=== PATIENT | male | born 1930 | race Caucasian/White ===

== ENCOUNTER 2018-08-03 23:00 | Inpatient (IN) | payer OTHER ==
[~2018-08-03] VITALS: Ht 177.8 cm; Wt 102.1 kg
[2018-08-04 00:26] VITALS: BP 129/62
[2018-08-04] MEDS ORDERED: DONE10TA14 PO (03:10)
[2018-08-04] MEDS ORDERED: METF10007 PO (03:10)
[2018-08-04] MEDS ORDERED: LOTE5DRO2 LEFTEYE (03:10)
[2018-08-04] MEDS ORDERED: SIMV20TA3 PO (03:10)
[2018-08-04] MEDS ORDERED: METO25TA4 PO (03:10)
[2018-08-04] MEDS ORDERED: CITA10TA4 PO (03:10)
[2018-08-04] MEDS ORDERED: ISOS30TA4 PO (03:10)
[2018-08-04] MEDS ORDERED: DORZ10DR26 EACHEYE (03:10)
[2018-08-04] MEDS ORDERED: LEVO175T5 PO (03:10)
[2018-08-04] MEDS ORDERED: NYST15CR TP (03:10)
[2018-08-04] MEDS ORDERED: CHOL100013 PO (03:10)
[2018-08-04] MEDS ORDERED: ASPI81TA50 PO (03:10)
[2018-08-04] MEDS ORDERED: TRAZ-120 PO (03:10)
[2018-08-04] MEDS ORDERED: ACET325T9 PO (03:10)
[2018-08-04] MEDS ORDERED: MAG HYDROX/AL HYDROX/SIMETH 30 ML ORAL.SUSP PO PRN (03:15)
[2018-08-04] MEDS ORDERED: METHYL SALICYLATE/MENTHOL TOPICAL OINTMENT 29GM TUBE. TP PRN (03:15)
[2018-08-04] MEDS ORDERED: MAGNESIUM HYDROXIDE 2,400 MG/30 ML ORAL.SUSP. PO PRN (03:15)
[2018-08-04] MEDS ORDERED: ACETAMINOPHEN 325 MG TABLET PO PRN (03:15)
[2018-08-04] MEDS ORDERED: ACETAMINOPHEN 500 MG TABLET PO PRN (03:15)
[2018-08-04 05:54] LABS: CLARITY,URINE CLEAR; COLOR,URINE YELLOW
[2018-08-04 05:55] LABS: BACTERIA,URINE 0 /HPF (0-FEW); BILIRUBIN,URINE NEG (NEG); GLUCOSE,URINE NEG (NEG); NITRITE,URINE NEG (NEG); RBC,URINE 0 /HPF (0-2); UROBILINOGEN,URINE 0.2 mg/dL (0.2 mg/dL); WBC,URINE RARE /HPF (0-4)
[2018-08-04] MEDS: LEVOTHYROXINE 175 MCG TABLET PO SCH (05:57)
[2018-08-04 06:05] VITALS: BP 143/79
[2018-08-04 07:04] LABS: BASO # 0.1 x10^3/uL (0.0-0.2); BASO % 1 % (0-3); EOS # 0.4 x10^3/uL (0.0-0.7); EOS % 5 % (0-3); HEMOGLOBIN 11.2 g/dL (13.0-17.5); LYMPH # 1.4 x10^3/uL (1.0-4.8); LYMPH % 20 % (24-48); MEAN CORPUSCULAR HEMOGLOBIN 30 pg (25-35); MEAN CORPUSCULAR HGB CONC 33 g/dL (31-37); MEAN CORPUSCULAR VOLUME 92 fL (79-100); MONO # 0.6 x10^3/uL (0.0-1.1); MONO % 9 % (0-9); NEUT # 4.6 x10^3uL (1.8-7.7); NEUT % 66 % (31-73); PLATELET COUNT 172 x10^3/uL (140-400); RED BLOOD COUNT 3.69 x10^6/uL (4.30-5.70); RED CELL DISTRIBUTION WIDTH 15.1 % (11.5-14.5)
[2018-08-04 07:20] LABS: ALBUMIN 3.8 g/dL (3.4-5.0); ALBUMIN/GLOBULIN RATIO 1.2 (1.0-1.7); CREATININE 0.8 mg/dL (0.7-1.3); MAGNESIUM 1.6 mg/dL (1.8-2.4); POTASSIUM 3.8 mmol/L (3.5-5.1); TOTAL BILIRUBIN 0.4 mg/dL (0.2-1.0); TOTAL PROTEIN 7.1 g/dL (6.4-8.2)
[2018-08-04] MEDS: metFORMIN 500 MG TABLET PO SCH ×2 (08:18→17:00)
[2018-08-04] MEDS: METOPROLOL TART IMMED RELEASE 25 MG TABLET PO SCH ×2 (08:18→19:41)
[2018-08-04] MEDS: DONEPEZIL HCL 10 MG TABLET PO SCH (08:18)
[2018-08-04] MEDS: ASPIRIN ENTERIC COATED 81 MG TABLET.DR. PO SCH (08:18)
[2018-08-04] MEDS: CITALOPRAM 10 MG TABLET. PO SCH (08:18)
[2018-08-04] MEDS: ISOSORBIDE MONONITRATE ER 30 MG TAB.ER.24H PO SCH (08:18)
[2018-08-04] MEDS: CHOLECALCIFEROL (VITAMIN D3) 1,000 UNIT TABLET PO SCH (08:18)
[2018-08-04] MEDS: NON FORMULARY ITEM (Loteprednol Etabonate (Lotemax) 1 DROP) LEFTEYE SCH ×2 (08:19→14:00)
[2018-08-04] MEDS: DORZOLAMIDE 2% OPHTH SOLUTION 10ML BOTTLE. OU SCH ×2 (08:19→19:45)
[2018-08-04] MEDS ORDERED: NYSTATIN 100,000 UNIT/GM TOPICAL CREAM 15GM TUBE. TP PRN (09:00)
[2018-08-04 14:08] LABS: THYROID STIM HORMONE (TSH) 21.45 uIU/mL (0.358-3.740)
[2018-08-04 16:16] VITALS: BP 149/72
[2018-08-04] MEDS: SIMVASTATIN 20 MG TABLET PO SCH (19:45)
[2018-08-04] MEDS: prednisoLONE ACETATE 1% OPHTH SUSPENSION 5ML BOTTLE. OS SCH (19:45)
[2018-08-04 21:11] LABS: THYROXINE 5.7 ug/dL (4.5-12.0)
--- NOTE | 2018-08-04 22:31 | PDOC ---
Exam Note: Sid Note: Please also refer to the separate dictated note~for this date of service dictated separately.~Patient seen individually. Discussed the patient with Nursing staff reviewed the chart.~Reviewed interim history and current functioning. Reviewed vital signs,~Labs/ Radiology~and current medications noted below. Continue current treatment with the changes noted in the dictated addendum note Assessment: Vital Signs: Vital Signs Date Time Temp Pulse Resp B/P (MAP) Pulse Ox O2 Delivery O2 Flow Rate FiO2 08/04/18 19:41 102 149/72 08/04/18 16:16 97.2 20 98 Room Air Labs: Laboratory Tests Test 08/04/18 05:00 08/04/18 06:38 08/04/18 07:19 08/04/18 12:15 Urine Collection Type Void Urine Color Yellow Urine Clarity Clear Urine pH 5.5 Urine Specific [place] 1.010 Urine Protein Neg (NEG-TRACE) Urine Glucose (UA) Neg mg/dL (NEG) Urine Ketones (Stick) Neg mg/dL (NEG) Urine Blood Trace (NEG) Urine Nitrite Neg (NEG) Urine Bilirubin Neg (NEG) Urine Urobilinogen Dipstick 0.2 mg/dL (0.2 mg/dL) Urine Leukocyte Esterase Neg (NEG) Urine RBC 0 /HPF (0-2) Urine WBC Rare /HPF (0-4) Urine Squamous Epithelial Cells None /LPF Urine Bacteria 0 /HPF (0-FEW) White Blood Count 7.0 x10^3/uL (4.0-11.0) Red Blood Count 3.69 x10^6/uL (4.30-5.70) L Hemoglobin 11.2 g/dL (13.0-17.5) L Hematocrit 34.0 % (39.0-53.0) L Mean Corpuscular Volume 92 fL (79-100) Mean Corpuscular Hemoglobin 30 pg (25-35) Mean Corpuscular Hemoglobin Concent 33 g/dL (31-37) Red Cell Distribution Width 15.1 % (11.5-14.5) H Platelet Count 172 x10^3/uL (140-400) Neutrophils (%) (Auto) 66 % (31-73) Lymphocytes (%) (Auto) 20 % (24-48) L Monocytes (%) (Auto) 9 % (0-9) Eosinophils (%) (Auto) 5 % (0-3) H Basophils (%) (Auto) 1 % (0-3) Neutrophils # (Auto) 4.6 x10^3uL (1.8-7.7) Lymphocytes # (Auto) 1.4 x10^3/uL (1.0-4.8) Monocytes # (Auto) 0.6 x10^3/uL (0.0-1.1) Eosinophils # (Auto) 0.4 x10^3/uL (0.0-0.7) Basophils # (Auto) 0.1 x10^3/uL (0.0-0.2) Sodium Level 140 mmol/L (136-145) Potassium Level 3.8 mmol/L (3.5-5.1) Chloride Level 104 mmol/L (98-107) Carbon Dioxide Level 26 mmol/L (21-32) Anion Gap 10 (6-14) Blood Urea Nitrogen 18 mg/dL (8-26) Creatinine 0.8 mg/dL (0.7-1.3) Estimated GFR (Cockcroft-Gault) 91.0 BUN/Creatinine Ratio 23 (6-20) H Glucose Level 150 mg/dL (70-99) H Calcium Level 9.0 mg/dL (8.5-10.1) Magnesium Level 1.6 mg/dL (1.8-2.4) L Total Bilirubin 0.4 mg/dL (0.2-1.0) Aspartate Amino Transferase (AST) 19 U/L (15-37) Alanine Aminotransferase (ALT) 24 U/L (16-63) Alkaline Phosphatase 67 U/L (46-116) Total Protein 7.1 g/dL (6.4-8.2) Albumin 3.8 g/dL (3.4-5.0) Albumin/Globulin Ratio 1.2 (1.0-1.7) Triglycerides Level 176 mg/dL (0-150) H Cholesterol Level 141 mg/dL (0-200) LDL Cholesterol, Calculated 64 mg/dL (0-100) VLDL Cholesterol, Calculated 35 mg/dL (0-40) Non-HDL Cholesterol Calculated 99 mg/dL (0-129) HDL Cholesterol 42 mg/dL (40-60) Cholesterol/HDL Ratio 3.0 Thyroid Stimulating Hormone (TSH) 21.450 uIU/mL (0.358-3.740) Thyroxine (T4) 5.7 ug/dL (4.5-12.0) Total Triiodothyronine (TT3) 70 ng/dL (71-180) L Treponema pallidum Antibody Nonreactive (Nonreactive) Glucose (Fingerstick) 169 mg/dL (70-99) H 116 mg/dL (70-99) H Test 08/04/18 19:16 Glucose (Fingerstick) 167 mg/dL (70-99) H Current Medications: Meds: Current Medications Acetaminophen (Tylenol) 500 mg PRN Q8HRS PRN PO PAIN / TEMP; Start 08/04/18 at 03:15 Citalopram Hydrobromide (CeleXA) 10 mg DAILY PO Last administered on 08/04/18 08:18; Start 08/04/18 at 09:00 Isosorbide Mononitrate (Imdur) 30 mg DAILY PO Last administered on 08/04/18 08:18; Start 08/04/18 at 09:00 Levothyroxine Sodium (Synthroid) 175 mcg DAILY06 PO Last administered on 08/04/18 05:57; Start 08/04/18 at 06:00 Metoprolol Tartrate (Lopressor) 25 mg BID PO Last administered on 08/04/18 19:41; Start 08/04/18 at 09:00 Aspirin (Aspirin Enteric Coated) 81 mg DAILYWBKFT PO Last administered on 08/04/18 08:18; Start 08/04/18 at 08:00 Vitamin D (Vitamin D3) 2,000 unit DAILY PO Last administered on 08/04/18 08:18; Start 08/04/18 at 09:00 Donepezil HCl (Aricept) 10 mg DAILY PO Last administered on 08/04/18 08:18; Start 08/04/18 at 09:00 Dorzolamide HCl (Trusopt) 1 drop BID OU Last administered on 08/04/18 19:45; Start 08/04/18 at 09:00 Non-Formulary Medication (Loteprednol Etabonate (Lotemax)) 1 drop TID LEFTEYE ; Start 08/04/18 at 09:00; Stop 08/04/18 at 16:36; Status DC Metformin HCl (Glucophage) 1,000 mg BIDWMEALS PO Last administered on 08/04/18at 17:00; Start 08/04/18 at 08:00 Nystatin (Mycostatin) 1 hansel PRN BID PRN TP FUNGAL RASH; Start 08/04/18 at 09:00 Simvastatin (Zocor) 20 mg HS PO Last administered on 08/04/18at 19:45; Start 08/04/18 at 21:00 Trazodone HCl (Desyrel) 12.5 mg PRN TID PRN PO SLEEP OR MOOD; Start 08/04/18 at 03:30 Acetaminophen (Tylenol) 650 mg PRN Q6HRS PRN PO PAIN / TEMP; Start 08/04/18 at 03:15; Status UNV Multi-Ingredient Ointment (Analgesic [place]) 1 hansel PRN QID PRN TP MUSCLE PAIN; Start 08/04/18 at 03:15 Al Hydroxide/Mg Hydroxide (Mylanta Plus Xs) 15 ml PRN AFTMEALHC PRN PO DYSPEPSIA; Start 08/04/18 at 03:15 Magnesium Hydroxide (Milk Of Magnesia) 2,400 mg PRN QHS PRN PO CONSTIPATION; Start 08/04/18 at 03:15 Prednisolone Acetate (Pred Forte) 1 drop BID OS Last administered on 08/04/18at 19:45; Start 08/04/18 at 21:00 Olanzapine (ZyPREXA ZYDIS) 2.5 mg PRN Q2HR PRN PO PSYCHOSIS Last administered on 08/04/18at 17:44; Start 08/04/18 at 17:30 Active Scripts Active Reported Nystatin 15 Gm Cream..g. 15 Gm TP PRN BID PRN Trazodone Hcl 50 Mg Tablet 12.5 Mg PO [place] AT 123416 PRN Aspir-Low (Aspirin) 81 Mg Tablet.dr 1 Tab PO DAILY Tylenol (Acetaminophen) 325 Mg Tablet 500 Mg PO PRN Q8HRS PRN Dorzolamide Hcl 10 Ml Drops 1 Drop EACHEYE BID Donepezil Hcl 10 Mg Tab.rapdis 10 Mg PO DAILY Metoprolol Tartrate 25 Mg Tablet 25 Mg PO BID Simvastatin 20 Mg Tablet 20 Mg PO HS Metformin Hcl 1,000 Mg Tablet 1,000 Mg PO BID Lotemax (Loteprednol Etabonate) 5 Ml Drops.susp 1 Drop LEFTEYE TID Levothyroxine Sodium 175 Mcg Tablet 175 Mcg PO DAILYAC Isosorbide Mononitrate Er (Isosorbide Mononitrate) 30 Mg Tab.er.24h 30 Mg PO DAILY Citalopram Hbr (Citalopram Hydrobromide) 10 Mg Tablet 10 Mg PO DAILY Vitamin D (Cholecalciferol (Vitamin D3)) 1,000 Unit Capsule 2 Cap PO DAILY I have reviewed the current psychotropics carefully including drug interactions. Risk benefit ratio favors no change other than as noted in my dictated progress note. 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
--- NOTE | 2018-08-04 23:46 | HP ---
ADMIT DATE: 08/03/2018 PSYCHIATRIC ADMISSION HISTORY/EVALUATION IDENTIFYING DATA: The patient is an 88-year-old male referred to us from [facility] by Dr. Daily Khanna, his primary care physician after he threatened to kill residents at the facility. He was cursing, disruptive, using a walker to hit others, labile in his mood, extremely confused, psychotic name calling. He is getting in other residents personal space. Behaviors were deemed dangerous, unmanageable, out of control, had failed outpatient psychiatric interventions resulting in this referral. CHIEF COMPLAINT: "I came here 2 weeks ago. I was here before then 8 years ago." I met with the patient at length in his room, discussed with nursing staff, reviewed the chart. Previously discussed with Mary Duarte, major donor coordinator. HISTORY OF PRESENT ILLNESS: The patient has a long history of dementia, Alzheimer's vascular type. He has been residing at the [facility] for some time, but more recently getting paranoid, agitated, anxious, irritable with sleep and appetite changes. He has been quite delusional and aggressive as above. Behaviors deemed dangerous. No clear history of bipolar disorder, suicidal or homicidal ideation. PAST PSYCHIATRIC HISTORY: As above. MEDICAL HISTORY: Abdominal aortic aneurysm, history of hypertension, hyperlipidemia, hypothyroidism, type 2 diabetes mellitus, glaucoma. Accu-Cheks before meals and at bedtime. ALLERGIES: PENICILLIN. CODE STATUS: DNR. DIET: Regular. MEDICATIONS: Takes it whole. Ambulates with walker. On 08/03/2018, UA was negative. CURRENT PSYCHOTROPICS: Celexa 10 mg a day, Aricept 10 mg b.i.d. FAMILY HISTORY: Noncontributory. SOCIAL HISTORY: No history of alcohol, drug abuse, physical, sexual or elder abuse history is noted. He is not known to be a perpetrator. REACTION TO HOSPITALIZATION: The patient oblivious of it. ASSETS: Supportive living at the [facility], supportive family. MENTAL STATUS EXAM: Oriented to himself. Insight, judgment, recent and remote memory, attention, concentration, fund of knowledge poor, consistent with his diagnosis. He is paranoid, delusional, somewhat impulsive. IMPRESSION: Major neurocognitive disorder, Alzheimer, vascular with delusion, depression, behavioral disturbance; anxiety disorder, unspecified; impulse control disorder, unspecified. Rest as above. PLAN: Admit to Geropsychiatry Unit at [facility]. I will see the patient daily individually from a psychiatric standpoint. Medical followup with Dr. Mayo. Continue the patient on his current psychotropics. Consider changing Celexa to Zoloft and adding Seroquel if psychotic symptoms are evident and if his aggression is prominent, may consider low dose Depakote Sprinkles. ESTIMATED LENGTH OF STAY: 10-12 days. DISPOSITION: Plans back to longterm. MAN Shelbie POLO MD DR: CARL/efra JOB#: [id number] / [id number]
[2018-08-05] MEDS: LEVOTHYROXINE 175 MCG TABLET PO SCH (06:35)
[2018-08-05 06:52] VITALS: BP 97/62
--- NOTE | 2018-08-05 07:20 | CONS ---
DATE OF CONSULTATION: 08/04/2018 ATTENDING PHYSICIAN: Singh Levy MD. CHIEF COMPLAINT: We are asked to see this patient for medical consultation while he is admitted to the Behavioral Health Unit. HISTORY OF PRESENT ILLNESS: The patient is an 88-year-old gentleman recently transferred here for anger issues, impulse control disorder with underlying dementia. He had threatened to kill residents, cursing was destructive, using his walker to hit others, labile emotional status. The patient unfortunately suffers from underlying depression. Much of the history is obtained from his old charts. He currently lives in [facility], which is a very [facility] in [place], [place]. PAST MEDICAL HISTORY: Dementia, abdominal aortic aneurysm, hypertension, hyperlipidemia, type 2 diabetes, hypothyroidism, and glaucoma. He recently had a fall resulting in a left patellar fracture. He is able to ambulate with the help of a walker. CURRENT MEDICATIONS: Reviewed. He is on scheduled Tylenol, Mylanta, aspirin, Celexa daily, Aricept, Trusopt eyedrops, Imdur, Synthroid, milk of magnesia, Glucophage orally, Lopressor, nystatin, Zocor, trazodone, and vitamin D. SOCIAL HISTORY: He is a nonsmoker, nondrinker. He knows that he is in a facility. He previously had served in the [employer]. He could not go into further details regarding his work history. FAMILY HISTORY: Unknown at this time and unobtainable. REVIEW OF SYSTEMS: Unobtainable due to the patient's current condition. PHYSICAL EXAMINATION: GENERAL: When I saw him, this is a pleasant elderly gentleman who was in no acute distress. VITAL SIGNS: His initial vital signs today showed a blood pressure of 129/62, pulse is 84 and regular. He was afebrile, heart rate is adequate, oxygen saturation 97% on room air. HEENT: The head is without trauma. Pupils are otherwise reactive. Sclerae nonicteric. The oropharynx is clear. NECK: Supple. No bruits are identified. LUNGS: Otherwise clear to auscultation. CARDIOVASCULAR: Showed regular heart tones. Normal S1, S2. He has a noticeable grade 3/6 systolic ejection murmur, early systolic best heard at the left sternal border. The murmur does not radiate into the carotids. Peripheral pulses are palpable and full. ABDOMEN: Obese, protuberant. No organomegaly. Bowel sounds are hypoactive. EXTREMITIES: Showed no cyanosis or edema. He has degenerative changes of both knees. NEUROLOGIC: Focally intact. Speech is fluent. MUSCULOSKELETAL: He moves all extremities. MENTAL CAPACITY: He is very agitated and forgetful. LABORATORY DATA: Hemoglobin is 11.2 g/dL with white count of 7000. Chemistry panel showed a stable creatinine of 0.8 mg percent, nonfasting blood sugar 150 and electrolytes within range. ASSESSMENT: 1. This 88 DICTATION ENDS HERE DAMARIS GARG MD DR: EMMA/efra JOB#: [id number] / [id number] MORENITA Cheng MD
[2018-08-05] MEDS: CITALOPRAM 10 MG TABLET. PO SCH (08:39)
[2018-08-05] MEDS: CHOLECALCIFEROL (VITAMIN D3) 1,000 UNIT TABLET PO SCH (08:39)
[2018-08-05] MEDS: ASPIRIN ENTERIC COATED 81 MG TABLET.DR. PO SCH (08:39)
[2018-08-05] MEDS: DONEPEZIL HCL 10 MG TABLET PO SCH (08:39)
[2018-08-05] MEDS: ISOSORBIDE MONONITRATE ER 30 MG TAB.ER.24H PO SCH (08:40)
[2018-08-05] MEDS: metFORMIN 500 MG TABLET PO SCH ×2 (08:40→17:00)
[2018-08-05] MEDS: METOPROLOL TART IMMED RELEASE 25 MG TABLET PO SCH (08:40)
[2018-08-05] MEDS: DORZOLAMIDE 2% OPHTH SOLUTION 10ML BOTTLE. OU SCH ×2 (08:42→20:52)
[2018-08-05] MEDS: prednisoLONE ACETATE 1% OPHTH SUSPENSION 5ML BOTTLE. OS SCH ×2 (08:42→20:52)
[2018-08-05] MEDS ORDERED: IV NORMAL SALINE 1,000ML 1,000 ML IV ONE (11:15)
[2018-08-05 12:08] LABS: HEMOGLOBIN A1C 7.3 % (4.8-5.6)
[2018-08-05 16:40] VITALS: BP 124/71
--- NOTE | 2018-08-05 20:47 | PDOC ---
Exam Note: Sid Note: Please also refer to the separate dictated note~for this date of service dictated separately.~Patient seen individually. Discussed the patient with Nursing staff reviewed the chart.~Reviewed interim history and current functioning. Reviewed vital signs,~Labs/ Radiology~and current medications noted below. Continue current treatment with the changes noted in the dictated addendum note Assessment: Vital Signs: Vital Signs Date Time Temp Pulse Resp B/P (MAP) Pulse Ox O2 Delivery O2 Flow Rate FiO2 08/05/18 16:40 97.8 67 17 124/71 (88) 96 Room Air I&O Intake and Output 08/05/18 07:00 Intake Total 720 ml Balance 720 ml Intake Oral 720 ml # Bowel Movements 1 Labs: Laboratory Tests Test 08/05/18 07:20 08/05/18 10:51 08/05/18 12:16 08/05/18 17:02 Glucose (Fingerstick) 150 mg/dL (70-99) H 182 mg/dL (70-99) H 138 mg/dL (70-99) H 125 mg/dL (70-99) H Test 08/05/18 19:20 Glucose (Fingerstick) 161 mg/dL (70-99) H Current Medications: Meds: Current Medications Acetaminophen (Tylenol) 500 mg PRN Q8HRS PRN PO PAIN / TEMP; Start 08/04/18 at 03:15 Citalopram Hydrobromide (CeleXA) 10 mg DAILY PO Last administered on 08/05/18at 08:39; Start 08/04/18 at 09:00; Stop 08/05/18 at 19:49; Status DC Isosorbide Mononitrate (Imdur) 30 mg DAILY PO Last administered on 08/04/18at 08:18; Start 08/04/18 at 09:00; Stop 08/05/18 at 11:17; Status DC Levothyroxine Sodium (Synthroid) 175 mcg DAILY06 PO Last administered on 08/05/18at 06:35; Start 08/04/18 at 06:00 Metoprolol Tartrate (Lopressor) 25 mg BID PO Last administered on 08/04/18at 19:41; Start 08/04/18 at 09:00; Stop 08/05/18 at 11:17; Status DC Aspirin (Aspirin Enteric Coated) 81 mg DAILYWBKFT PO Last administered on 08/05/18 08:39; Start 08/04/18 at 08:00 Vitamin D (Vitamin D3) 2,000 unit DAILY PO Last administered on 08/05/18 08:39; Start 08/04/18 at 09:00 Donepezil HCl (Aricept) 10 mg DAILY PO Last administered on 08/05/18 08:39; Start 08/04/18 at 09:00 Dorzolamide HCl (Trusopt) 1 drop BID OU Last administered on 08/05/18 08:42; Start 08/04/18 at 09:00 Non-Formulary Medication (Loteprednol Etabonate (Lotemax)) 1 drop TID LEFTEYE ; Start 08/04/18 at 09:00; Stop 08/04/18 at 16:36; Status DC Metformin HCl (Glucophage) 1,000 mg BIDWMEALS PO Last administered on 08/05/18at 17:00; Start 08/04/18 at 08:00 Nystatin (Mycostatin) 1 hansel PRN BID PRN TP FUNGAL RASH; Start 08/04/18 at 09:00 Simvastatin (Zocor) 20 mg HS PO Last administered on 08/04/18at 19:45; Start 08/04/18 at 21:00 Trazodone HCl (Desyrel) 12.5 mg PRN TID PRN PO SLEEP OR MOOD; Start 08/04/18 at 03:30 Acetaminophen (Tylenol) 650 mg PRN Q6HRS PRN PO PAIN / TEMP; Start 08/04/18 at 03:15; Status UNV Multi-Ingredient Ointment (Analgesic [place]) 1 hansel PRN QID PRN TP MUSCLE PAIN; Start 08/04/18 at 03:15 Al Hydroxide/Mg Hydroxide (Mylanta Plus Xs) 15 ml PRN AFTMEALHC PRN PO DYSPEPSIA; Start 08/04/18 at 03:15 Magnesium Hydroxide (Milk Of Magnesia) 2,400 mg PRN QHS PRN PO CONSTIPATION; Start 08/04/18 at 03:15 Prednisolone Acetate (Pred Forte) 1 drop BID OS Last administered on 08/05/18 08:42; Start 08/04/18 at 21:00 Olanzapine (ZyPREXA ZYDIS) 2.5 mg PRN Q2HR PRN PO PSYCHOSIS Last administered on 08/05/18at 08:42; Start 08/04/18 at 17:30 Sodium Chloride 1,000 ml @ 1,000 mls/hr 1X ONCE IV Last administered on 08/05/18at 11:15; Start 08/05/18 at 11:15; Stop 08/05/18 at 12:14; Status DC Sertraline HCl (Zoloft) 25 mg DAILY PO ; Start 08/06/18 at 09:00 Active Scripts Active Reported Nystatin 15 Gm Cream..g. 15 Gm TP PRN BID PRN Trazodone Hcl 50 Mg Tablet 12.5 Mg PO PRN [place] AT 814310 PRN Aspir-Low (Aspirin) 81 Mg Tablet.dr 1 Tab PO DAILY Tylenol (Acetaminophen) 325 Mg Tablet 500 Mg PO PRN Q8HRS PRN Dorzolamide Hcl 10 Ml Drops 1 Drop EACHEYE BID Donepezil Hcl 10 Mg Tab.rapdis 10 Mg PO DAILY Metoprolol Tartrate 25 Mg Tablet 25 Mg PO BID Simvastatin 20 Mg Tablet 20 Mg PO HS Metformin Hcl 1,000 Mg Tablet 1,000 Mg PO BID Lotemax (Loteprednol Etabonate) 5 Ml Drops.susp 1 Drop LEFTEYE TID Levothyroxine Sodium 175 Mcg Tablet 175 Mcg PO DAILYAC Isosorbide Mononitrate Er (Isosorbide Mononitrate) 30 Mg Tab.er.24h 30 Mg PO DAILY Citalopram Hbr (Citalopram Hydrobromide) 10 Mg Tablet 10 Mg PO DAILY Vitamin D (Cholecalciferol (Vitamin D3)) 1,000 Unit Capsule 2 Cap PO DAILY I have reviewed the current psychotropics carefully including drug interactions. Risk benefit ratio favors no change other than as noted in my dictated progress note. Diagnosis: Problems: (1) Anxiety disorder (2) Dementia, vascular, with depression (3) Dementia, vascular, with delusions (4) Dementia in Alzheimer's disease with depression (5) Dementia in Alzheimer's disease with delusions (6) Impulse control disorder SON POLO MD Aug 05, 2018 20:47
[2018-08-05] MEDS: SIMVASTATIN 20 MG TABLET PO SCH (20:52)
[2018-08-06] MEDS: LEVOTHYROXINE 175 MCG TABLET PO SCH (05:41)
[2018-08-06 06:09] VITALS: BP 136/69
[2018-08-06] MEDS: DONEPEZIL HCL 10 MG TABLET PO SCH (08:13)
[2018-08-06] MEDS: ASPIRIN ENTERIC COATED 81 MG TABLET.DR. PO SCH (08:13)
[2018-08-06] MEDS: CHOLECALCIFEROL (VITAMIN D3) 1,000 UNIT TABLET PO SCH (08:17)
[2018-08-06] MEDS: metFORMIN 500 MG TABLET PO SCH ×2 (08:19→17:14)
[2018-08-06] MEDS: DORZOLAMIDE 2% OPHTH SOLUTION 10ML BOTTLE. OU SCH ×2 (08:20→20:04)
[2018-08-06] MEDS: prednisoLONE ACETATE 1% OPHTH SUSPENSION 5ML BOTTLE. OS SCH ×2 (08:20→20:04)
[2018-08-06] MEDS: SERTRALINE 25 MG TABLET. PO SCH (10:47)
--- NOTE | 2018-08-06 13:00 | PN ---
DATE: 08/05/2018 PSYCHIATRIC PROGRESS NOTE This late entry of 08/05/2018 covers elements not covered in my initial note. SUBJECTIVE: I met with the patient in the evening. The patient slept 8 hours previous night, remains confused, was agitated in the morning, received Zyprexa p.r.n. Blood pressure was somewhat low, then was on IV fluids 1 liter, blood pressure is stable by the time I met with him. We will defer to Dr. Herrera/Dr. Mayo. REVIEW OF SYSTEMS: Ambulation impaired, in wheelchair, but he uses walker at times. No CV, , pulmonary, eye, ENT system symptoms on review. Reliability poor. MENTAL STATUS EXAM: Oriented to himself. Insight, judgment, recent and remote memory, attention, concentration, fund of knowledge poor, consistent with his diagnosis mentioned in my initial note. PLAN: Celexa will be changed to Zoloft 25 mg a day. Maintain Aricept along with Zyprexa p.r.n. Rest unchanged. SON POLO MD DR: CARL/efra JOB#: [id number] / [id number]
[2018-08-06 15:53] VITALS: BP 141/99
[2018-08-06] MEDS: SIMVASTATIN 20 MG TABLET PO SCH (20:02)
[2018-08-06] MEDS: traZODone 50 MG TABLET. PO PRN (20:33)
--- NOTE | 2018-08-06 22:49 | PDOC ---
Exam Note: Sid Note: Please also refer to the separate dictated note~for this date of service dictated separately.~Patient seen individually. Discussed the patient with Nursing staff reviewed the chart.~Reviewed interim history and current functioning. Reviewed vital signs,~Labs/ Radiology~and current medications noted below. Continue current treatment with the changes noted in the dictated addendum note Assessment: Vital Signs: Vital Signs Date Time Temp Pulse Resp B/P (MAP) Pulse Ox O2 Delivery O2 Flow Rate FiO2 08/06/18 15:53 97.6 76 16 141/99 (113) 98 08/05/18 16:40 Room Air I&O Intake and Output 08/06/18 06:59 Intake Total 840 ml Balance 840 ml Intake Oral 840 ml Labs: Laboratory Tests Test 08/06/18 07:09 08/06/18 11:08 08/06/18 16:12 08/06/18 19:22 Glucose (Fingerstick) 156 mg/dL (70-99) H 184 mg/dL (70-99) H 120 mg/dL (70-99) H 156 mg/dL (70-99) H Current Medications: Meds: Current Medications Acetaminophen (Tylenol) 500 mg PRN Q8HRS PRN PO PAIN / TEMP; Start 08/04/18 at 03:15 Citalopram Hydrobromide (CeleXA) 10 mg DAILY PO Last administered on 08/05/18at 08:39; Start 08/04/18 at 09:00; Stop 08/05/18 at 19:49; Status DC Isosorbide Mononitrate (Imdur) 30 mg DAILY PO Last administered on 08/04/18at 08:18; Start 08/04/18 at 09:00; Stop 08/05/18 at 11:17; Status DC Levothyroxine Sodium (Synthroid) 175 mcg DAILY06 PO Last administered on 08/06/18at 05:41; Start 08/04/18 at 06:00 Metoprolol Tartrate (Lopressor) 25 mg BID PO Last administered on 08/04/18at 19:41; Start 08/04/18 at 09:00; Stop 08/05/18 at 11:17; Status DC Aspirin (Aspirin Enteric Coated) 81 mg DAILYWBKFT PO Last administered on 08/06/18at 08:13; Start 08/04/18 at 08:00 Vitamin D (Vitamin D3) 2,000 unit DAILY PO Last administered on 08/06/18 08:17; Start 08/04/18 at 09:00 Donepezil HCl (Aricept) 10 mg DAILY PO Last administered on 08/06/18 08:13; Start 08/04/18 at 09:00 Dorzolamide HCl (Trusopt) 1 drop BID OU Last administered on 08/06/18 08:20; Start 08/04/18 at 09:00 Non-Formulary Medication (Loteprednol Etabonate (Lotemax)) 1 drop TID LEFTEYE ; Start 08/04/18 at 09:00; Stop 08/04/18 at 16:36; Status DC Metformin HCl (Glucophage) 1,000 mg BIDWMEALS PO Last administered on 08/06/18 17:14; Start 08/04/18 at 08:00 Nystatin (Mycostatin) 1 hansel PRN BID PRN TP FUNGAL RASH; Start 08/04/18 at 09:00 Simvastatin (Zocor) 20 mg HS PO Last administered on 08/06/18 20:02; Start 08/04/18 at 21:00 Trazodone HCl (Desyrel) 12.5 mg PRN TID PRN PO SLEEP OR MOOD Last administered on 08/06/18 20:33; Start 08/04/18 at 03:30 Acetaminophen (Tylenol) 650 mg PRN Q6HRS PRN PO PAIN / TEMP; Start 08/04/18 at 03:15; Status UNV Multi-Ingredient Ointment (Analgesic [place]) 1 hansel PRN QID PRN TP MUSCLE PAIN; Start 08/04/18 at 03:15 Al Hydroxide/Mg Hydroxide (Mylanta Plus Xs) 15 ml PRN AFTMEALHC PRN PO DYSPEPSIA; Start 08/04/18 at 03:15 Magnesium Hydroxide (Milk Of Magnesia) 2,400 mg PRN QHS PRN PO CONSTIPATION; Start 08/04/18 at 03:15 Prednisolone Acetate (Pred Forte) 1 drop BID OS Last administered on 08/06/18 08:20; Start 08/04/18 at 21:00 Olanzapine (ZyPREXA ZYDIS) 2.5 mg PRN Q2HR PRN PO PSYCHOSIS Last administered on 08/05/18at 08:42; Start 08/04/18 at 17:30 Sodium Chloride 1,000 ml @ 1,000 mls/hr 1X ONCE IV Last administered on 08/05/18at 11:15; Start 08/05/18 at 11:15; Stop 08/05/18 at 12:14; Status DC Sertraline HCl (Zoloft) 25 mg DAILY PO Last administered on 08/06/18at 10:47; Start 08/06/18 at 09:00 Active Scripts Active Reported Nystatin 15 Gm Cream..g. 15 Gm TP PRN BID PRN Trazodone Hcl 50 Mg Tablet 12.5 Mg PO [place] AT [id number] PRN Aspir-Low (Aspirin) 81 Mg Tablet.dr 1 Tab PO DAILY Tylenol (Acetaminophen) 325 Mg Tablet 500 Mg PO PRN Q8HRS PRN Dorzolamide Hcl 10 Ml Drops 1 Drop EACHEYE BID Donepezil Hcl 10 Mg Tab.rapdis 10 Mg PO DAILY Metoprolol Tartrate 25 Mg Tablet 25 Mg PO BID Simvastatin 20 Mg Tablet 20 Mg PO HS Metformin Hcl 1,000 Mg Tablet 1,000 Mg PO BID Lotemax (Loteprednol Etabonate) 5 Ml Drops.susp 1 Drop LEFTEYE TID Levothyroxine Sodium 175 Mcg Tablet 175 Mcg PO DAILYAC Isosorbide Mononitrate Er (Isosorbide Mononitrate) 30 Mg Tab.er.24h 30 Mg PO DAILY Citalopram Hbr (Citalopram Hydrobromide) 10 Mg Tablet 10 Mg PO DAILY Vitamin D (Cholecalciferol (Vitamin D3)) 1,000 Unit Capsule 2 Cap PO DAILY I have reviewed the current psychotropics carefully including drug interactions. Risk benefit ratio favors no change other than as noted in my dictated progress note. Diagnosis: Problems: (1) Anxiety disorder (2) Dementia, vascular, with depression (3) Dementia, vascular, with delusions (4) Dementia in Alzheimer's disease with depression (5) Dementia in Alzheimer's disease with delusions (6) Impulse control disorder SON POLO MD Aug 06, 2018 22:49
[2018-08-07] MEDS: LEVOTHYROXINE 175 MCG TABLET PO SCH (05:36)
[2018-08-07 06:02] VITALS: BP 146/83
[2018-08-07] MEDS: ASPIRIN ENTERIC COATED 81 MG TABLET.DR. PO SCH (07:46)
[2018-08-07] MEDS: metFORMIN 500 MG TABLET PO SCH ×2 (07:46→17:01)
[2018-08-07] MEDS: DONEPEZIL HCL 10 MG TABLET PO SCH (07:47)
[2018-08-07] MEDS: CHOLECALCIFEROL (VITAMIN D3) 1,000 UNIT TABLET PO SCH (07:47)
[2018-08-07] MEDS: SERTRALINE 25 MG TABLET. PO SCH (07:47)
[2018-08-07] MEDS: DORZOLAMIDE 2% OPHTH SOLUTION 10ML BOTTLE. OU SCH ×2 (07:48→19:49)
[2018-08-07] MEDS: prednisoLONE ACETATE 1% OPHTH SUSPENSION 5ML BOTTLE. OS SCH ×2 (07:48→19:49)
--- NOTE | 2018-08-07 11:56 | PN ---
DATE: 08/06/2018 PSYCHIATRIC PROGRESS NOTE This late entry of 08/06/2018 covers elements not covered in my initial note. SUBJECTIVE: I met with the patient in the evening. The patient slept 6 hours previous night. He has been confused, somewhat flirtatious at times, made a statement to nursing staff, "I feel as good as you look." He was redirectable. Blood sugar was elevated earlier 184. REVIEW OF SYSTEMS: Ambulation impaired, in wheelchair. No CV, , pulmonary, eye, ENT system symptoms on review. Reliability poor. MENTAL STATUS EXAM: Oriented to himself. Insight, judgment, recent and remote memory, attention, concentration, fund of knowledge poor, consistent with his diagnosis. IMPRESSION: Major neurocognitive disorder, Alzheimer, vascular with delusion, depression, behavioral disturbance; anxiety disorder, unspecified; impulse control disorder, unspecified. PLAN: Maintain psychotropics from initial note. SON POLO MD DR: CARL/efra JOB#: [id number] / [id number]
[2018-08-07 15:49] VITALS: BP 124/64
[2018-08-07] MEDS: SIMVASTATIN 20 MG TABLET PO SCH (19:50)
[2018-08-07] MEDS: MIRTAZAPINE 7.5 MG TABLET. PO SCH (19:51)
--- NOTE | 2018-08-07 22:40 | PDOC ---
Exam Note: Sid Note: Please also refer to the separate dictated note~for this date of service dictated separately.~Patient seen individually. Discussed the patient with Nursing staff reviewed the chart.~Reviewed interim history and current functioning. Reviewed vital signs,~Labs/ Radiology~and current medications noted below. Continue current treatment with the changes noted in the dictated addendum note Assessment: Vital Signs: Vital Signs Date Time Temp Pulse Resp B/P (MAP) Pulse Ox O2 Delivery O2 Flow Rate FiO2 08/07/18 15:49 97.6 73 16 124/64 (84) 93 08/05/18 16:40 Room Air I&O Intake and Output 08/07/18 07:00 Intake Total 960 ml Balance 960 ml Intake Oral 960 ml # Bowel Movements 1 Labs: Laboratory Tests Test 08/07/18 07:17 08/07/18 11:58 08/07/18 16:55 08/07/18 19:14 Glucose (Fingerstick) 155 mg/dL (70-99) H 131 mg/dL (70-99) H 171 mg/dL (70-99) H 172 mg/dL (70-99) H Current Medications: Meds: Current Medications Acetaminophen (Tylenol) 500 mg PRN Q8HRS PRN PO PAIN / TEMP; Start 08/04/18 at 03:15 Citalopram Hydrobromide (CeleXA) 10 mg DAILY PO Last administered on 08/05/18at 08:39; Start 08/04/18 at 09:00; Stop 08/05/18 at 19:49; Status DC Isosorbide Mononitrate (Imdur) 30 mg DAILY PO Last administered on 08/04/18at 08:18; Start 08/04/18 at 09:00; Stop 08/05/18 at 11:17; Status DC Levothyroxine Sodium (Synthroid) 175 mcg DAILY06 PO Last administered on 08/07/18at 05:36; Start 08/04/18 at 06:00 Metoprolol Tartrate (Lopressor) 25 mg BID PO Last administered on 08/04/18at 19:41; Start 08/04/18 at 09:00; Stop 08/05/18 at 11:17; Status DC Aspirin (Aspirin Enteric Coated) 81 mg DAILYWBKFT PO Last administered on 08/07/18at 07:46; Start 08/04/18 at 08:00 Vitamin D (Vitamin D3) 2,000 unit DAILY PO Last administered on 08/07/18 07:47; Start 08/04/18 at 09:00 Donepezil HCl (Aricept) 10 mg DAILY PO Last administered on 08/07/18 07:47; Start 08/04/18 at 09:00 Dorzolamide HCl (Trusopt) 1 drop BID OU Last administered on 08/07/18 19:49; Start 08/04/18 at 09:00 Non-Formulary Medication (Loteprednol Etabonate (Lotemax)) 1 drop TID LEFTEYE ; Start 08/04/18 at 09:00; Stop 08/04/18 at 16:36; Status DC Metformin HCl (Glucophage) 1,000 mg BIDWMEALS PO Last administered on 08/07/18 17:01; Start 08/04/18 at 08:00 Nystatin (Mycostatin) 1 hansel PRN BID PRN TP FUNGAL RASH; Start 08/04/18 at 09:00 Simvastatin (Zocor) 20 mg HS PO Last administered on 08/07/18 19:50; Start 08/04/18 at 21:00 Trazodone HCl (Desyrel) 12.5 mg PRN TID PRN PO SLEEP OR MOOD Last administered on 08/06/18 20:33; Start 08/04/18 at 03:30 Acetaminophen (Tylenol) 650 mg PRN Q6HRS PRN PO PAIN / TEMP; Start 08/04/18 at 03:15; Status UNV Multi-Ingredient Ointment (Analgesic [place]) 1 hansel PRN QID PRN TP MUSCLE PAIN; Start 08/04/18 at 03:15 Al Hydroxide/Mg Hydroxide (Mylanta Plus Xs) 15 ml PRN AFTMEALHC PRN PO DYSPEPSIA; Start 08/04/18 at 03:15 Magnesium Hydroxide (Milk Of Magnesia) 2,400 mg PRN QHS PRN PO CONSTIPATION; Start 08/04/18 at 03:15 Prednisolone Acetate (Pred Forte) 1 drop BID OS Last administered on 08/07/18 19:49; Start 08/04/18 at 21:00 Olanzapine (ZyPREXA ZYDIS) 2.5 mg PRN Q2HR PRN PO PSYCHOSIS Last administered on 08/05/18at 08:42; Start 08/04/18 at 17:30 Sodium Chloride 1,000 ml @ 1,000 mls/hr 1X ONCE IV Last administered on 08/05/18at 11:15; Start 08/05/18 at 11:15; Stop 08/05/18 at 12:14; Status DC Sertraline HCl (Zoloft) 25 mg DAILY PO Last administered on 08/07/18at 07:47; Start 08/06/18 at 09:00 Mirtazapine (Remeron) 7.5 mg QHS PO Last administered on 08/07/18at 19:51; Start 08/07/18 at 21:00 Active Scripts Active Reported Nystatin 15 Gm Cream..g. 15 Gm TP PRN BID PRN Trazodone Hcl 50 Mg Tablet 12.5 Mg PO PRN TID AT 868341 PRN Aspir-Low (Aspirin) 81 Mg Tablet.dr 1 Tab PO DAILY Tylenol (Acetaminophen) 325 Mg Tablet 500 Mg PO PRN Q8HRS PRN Dorzolamide Hcl 10 Ml Drops 1 Drop EACHEYE BID Donepezil Hcl 10 Mg Tab.rapdis 10 Mg PO DAILY Metoprolol Tartrate 25 Mg Tablet 25 Mg PO BID Simvastatin 20 Mg Tablet 20 Mg PO HS Metformin Hcl 1,000 Mg Tablet 1,000 Mg PO BID Lotemax (Loteprednol Etabonate) 5 Ml Drops.susp 1 Drop LEFTEYE TID Levothyroxine Sodium 175 Mcg Tablet 175 Mcg PO DAILYAC Isosorbide Mononitrate Er (Isosorbide Mononitrate) 30 Mg Tab.er.24h 30 Mg PO DAILY Citalopram Hbr (Citalopram Hydrobromide) 10 Mg Tablet 10 Mg PO DAILY Vitamin D (Cholecalciferol (Vitamin D3)) 1,000 Unit Capsule 2 Cap PO DAILY I have reviewed the current psychotropics carefully including drug interactions. Risk benefit ratio favors no change other than as noted in my dictated progress note. Diagnosis: Problems: (1) Anxiety disorder (2) Dementia, vascular, with depression (3) Dementia, vascular, with delusions (4) Dementia in Alzheimer's disease with depression (5) Dementia in Alzheimer's disease with delusions (6) Impulse control disorder SON POLO MD Aug 07, 2018 22:40
[2018-08-08 05:42] VITALS: BP_SYST 148; BP_SYST 172; BP_DIAS 76; BP_DIAS 99
[2018-08-08] MEDS: LEVOTHYROXINE 175 MCG TABLET PO SCH (06:08)
[2018-08-08] MEDS: ASPIRIN ENTERIC COATED 81 MG TABLET.DR. PO SCH (07:24)
[2018-08-08] MEDS: DONEPEZIL HCL 10 MG TABLET PO SCH (07:25)
[2018-08-08] MEDS: DORZOLAMIDE 2% OPHTH SOLUTION 10ML BOTTLE. OU SCH ×2 (07:25→19:14)
[2018-08-08] MEDS: prednisoLONE ACETATE 1% OPHTH SUSPENSION 5ML BOTTLE. OS SCH ×2 (07:25→19:14)
[2018-08-08] MEDS: metFORMIN 500 MG TABLET PO SCH ×2 (07:25→17:05)
[2018-08-08] MEDS: SERTRALINE 25 MG TABLET. PO SCH (07:25)
[2018-08-08] MEDS: CHOLECALCIFEROL (VITAMIN D3) 1,000 UNIT TABLET PO SCH (07:27)
[2018-08-08 16:36] VITALS: BP 115/69
[2018-08-08] MEDS: SIMVASTATIN 20 MG TABLET PO SCH (19:14)
[2018-08-08] MEDS: MIRTAZAPINE 7.5 MG TABLET. PO SCH (19:14)
--- NOTE | 2018-08-08 22:47 | PDOC ---
Exam Note: Sid Note: Please also refer to the separate dictated note~for this date of service dictated separately.~Patient seen individually. Discussed the patient with Nursing staff reviewed the chart.~Reviewed interim history and current functioning. Reviewed vital signs,~Labs/ Radiology~and current medications noted below. Continue current treatment with the changes noted in the dictated addendum note Assessment: Vital Signs: Vital Signs Date Time Temp Pulse Resp B/P (MAP) Pulse Ox O2 Delivery O2 Flow Rate FiO2 08/08/18 16:36 97.3 73 18 115/69 (84) 99 08/05/18 16:40 Room Air I&O Intake and Output 08/08/18 07:00 Intake Total 1080 ml Balance 1080 ml Intake Oral 1080 ml # Bowel Movements 1 Labs: Laboratory Tests Test 08/08/18 07:29 08/08/18 11:37 08/08/18 17:02 08/08/18 19:17 Glucose (Fingerstick) 145 mg/dL (70-99) H 135 mg/dL (70-99) H 120 mg/dL (70-99) H 166 mg/dL (70-99) H Current Medications: Meds: Current Medications Acetaminophen (Tylenol) 500 mg PRN Q8HRS PRN PO PAIN / TEMP; Start 08/04/18 at 03:15 Citalopram Hydrobromide (CeleXA) 10 mg DAILY PO Last administered on 08/05/18at 08:39; Start 08/04/18 at 09:00; Stop 08/05/18 at 19:49; Status DC Isosorbide Mononitrate (Imdur) 30 mg DAILY PO Last administered on 08/04/18at 08:18; Start 08/04/18 at 09:00; Stop 08/05/18 at 11:17; Status DC Levothyroxine Sodium (Synthroid) 175 mcg DAILY06 PO Last administered on 08/08/18at 06:08; Start 08/04/18 at 06:00 Metoprolol Tartrate (Lopressor) 25 mg BID PO Last administered on 08/04/18at 19:41; Start 08/04/18 at 09:00; Stop 08/05/18 at 11:17; Status DC Aspirin (Aspirin Enteric Coated) 81 mg DAILYWBKFT PO Last administered on 08/08/18at 07:24; Start 08/04/18 at 08:00 Vitamin D (Vitamin D3) 2,000 unit DAILY PO Last administered on 08/08/18 07:27; Start 08/04/18 at 09:00 Donepezil HCl (Aricept) 10 mg DAILY PO Last administered on 08/08/18 07:25; Start 08/04/18 at 09:00 Dorzolamide HCl (Trusopt) 1 drop BID OU Last administered on 08/08/18 19:14; Start 08/04/18 at 09:00 Non-Formulary Medication (Loteprednol Etabonate (Lotemax)) 1 drop TID LEFTEYE ; Start 08/04/18 at 09:00; Stop 08/04/18 at 16:36; Status DC Metformin HCl (Glucophage) 1,000 mg BIDWMEALS PO Last administered on 08/08/18at 17:05; Start 08/04/18 at 08:00 Nystatin (Mycostatin) 1 hansel PRN BID PRN TP FUNGAL RASH; Start 08/04/18 at 09:00 Simvastatin (Zocor) 20 mg HS PO Last administered on 08/08/18 19:14; Start 08/04/18 at 21:00 Trazodone HCl (Desyrel) 12.5 mg PRN TID PRN PO SLEEP OR MOOD Last administered on 08/06/18at 20:33; Start 08/04/18 at 03:30 Acetaminophen (Tylenol) 650 mg PRN Q6HRS PRN PO PAIN / TEMP; Start 08/04/18 at 03:15; Status UNV Multi-Ingredient Ointment (Analgesic [place]) 1 hansel PRN QID PRN TP MUSCLE PAIN; Start 08/04/18 at 03:15 Al Hydroxide/Mg Hydroxide (Mylanta Plus Xs) 15 ml PRN AFTMEALHC PRN PO DYSPEPSIA; Start 08/04/18 at 03:15 Magnesium Hydroxide (Milk Of Magnesia) 2,400 mg PRN QHS PRN PO CONSTIPATION; Start 08/04/18 at 03:15 Prednisolone Acetate (Pred Forte) 1 drop BID OS Last administered on 08/08/18 19:14; Start 08/04/18 at 21:00 Olanzapine (ZyPREXA ZYDIS) 2.5 mg PRN Q2HR PRN PO PSYCHOSIS Last administered on 08/05/18at 08:42; Start 08/04/18 at 17:30 Sodium Chloride 1,000 ml @ 1,000 mls/hr 1X ONCE IV Last administered on 08/05/18at 11:15; Start 08/05/18 at 11:15; Stop 08/05/18 at 12:14; Status DC Sertraline HCl (Zoloft) 25 mg DAILY PO Last administered on 08/08/18at 07:25; Start 08/06/18 at 09:00; Stop 08/08/18 at 17:33; Status DC Mirtazapine (Remeron) 7.5 mg QHS PO Last administered on 08/08/18at 19:14; Start 08/07/18 at 21:00 Sertraline HCl (Zoloft) 50 mg DAILY PO ; Start 08/09/18 at 09:00 Active Scripts Active Reported Nystatin 15 Gm Cream..g. 15 Gm TP PRN BID PRN Trazodone Hcl 50 Mg Tablet 12.5 Mg PO PRN [place]ID AT [id number] PRN Aspir-Low (Aspirin) 81 Mg Tablet.dr 1 Tab PO DAILY Tylenol (Acetaminophen) 325 Mg Tablet 500 Mg PO PRN Q8HRS PRN Dorzolamide Hcl 10 Ml Drops 1 Drop EACHEYE BID Donepezil Hcl 10 Mg Tab.rapdis 10 Mg PO DAILY Metoprolol Tartrate 25 Mg Tablet 25 Mg PO BID Simvastatin 20 Mg Tablet 20 Mg PO HS Metformin Hcl 1,000 Mg Tablet 1,000 Mg PO BID Lotemax (Loteprednol Etabonate) 5 Ml Drops.susp 1 Drop LEFTEYE TID Levothyroxine Sodium 175 Mcg Tablet 175 Mcg PO DAILYAC Isosorbide Mononitrate Er (Isosorbide Mononitrate) 30 Mg Tab.er.24h 30 Mg PO DAILY Citalopram Hbr (Citalopram Hydrobromide) 10 Mg Tablet 10 Mg PO DAILY Vitamin D (Cholecalciferol (Vitamin D3)) 1,000 Unit Capsule 2 Cap PO DAILY I have reviewed the current psychotropics carefully including drug interactions. Risk benefit ratio favors no change other than as noted in my dictated progress note. Diagnosis: Problems: (1) Anxiety disorder (2) Dementia, vascular, with depression (3) Dementia, vascular, with delusions (4) Dementia in Alzheimer's disease with depression (5) Dementia in Alzheimer's disease with delusions (6) Impulse control disorder SON POLO MD Aug 08, 2018 22:47
--- NOTE | 2018-08-09 04:41 | PN ---
DATE: 08/07/2018 This is a late entry, date of service 08/07/2018. Covers elements not covered in my initial note. SUBJECTIVE: I met with the patient evening of 08/07/2018. The patient slept just 3 hours previous night. Previous evening he was quite irritable, better during the day on 08/07/2018, anxious, wanting to talk to his . His did visit. REVIEW OF SYSTEMS: No CV, , pulmonary, eye system symptoms on review. Reliability poor. Gait unsteady with walker. MENTAL STATUS EXAM: Oriented to himself. Insight, judgment, recent and remote memory, attention, concentration, fund of knowledge poor, consistent with his diagnosis mentioned in my initial note. PLAN: No change from initial note. Start Remeron 7.5 mg p.o. at bedtime to help with insomnia and anxiety. Rest unchanged. MAN Shelbie POLO MD DR: CARL/efra JOB#: [id number] / [id number]
[2018-08-09] MEDS: LEVOTHYROXINE 175 MCG TABLET PO SCH (05:41)
[2018-08-09 06:00] VITALS: BP 131/84
[2018-08-09 08:08] LABS: BASO % 1 % (0-3); EOS # 0.4 x10^3/uL (0.0-0.7); EOS % 6 % (0-3); HEMATOCRIT 34.5 % (39.0-53.0); HEMOGLOBIN 11.5 g/dL (13.0-17.5); LYMPH # 1.6 x10^3/uL (1.0-4.8); LYMPH % 23 % (24-48); MEAN CORPUSCULAR HEMOGLOBIN 31 pg (25-35); MEAN CORPUSCULAR HGB CONC 33 g/dL (31-37); MEAN CORPUSCULAR VOLUME 92 fL (79-100); MONO # 0.7 x10^3/uL (0.0-1.1); MONO % 10 % (0-9); NEUT # 4.2 x10^3uL (1.8-7.7); NEUT % 60 % (31-73); PLATELET COUNT 158 x10^3/uL (140-400); RED BLOOD COUNT 3.74 x10^6/uL (4.30-5.70); WHITE BLOOD COUNT 6.9 x10^3/uL (4.0-11.0)
[2018-08-09] MEDS: metFORMIN 500 MG TABLET PO SCH ×2 (08:19→16:56)
[2018-08-09] MEDS: ASPIRIN ENTERIC COATED 81 MG TABLET.DR. PO SCH (08:19)
[2018-08-09] MEDS: prednisoLONE ACETATE 1% OPHTH SUSPENSION 5ML BOTTLE. OS SCH ×2 (08:19→19:18)
[2018-08-09] MEDS: DORZOLAMIDE 2% OPHTH SOLUTION 10ML BOTTLE. OU SCH ×2 (08:20→19:18)
[2018-08-09] MEDS: DONEPEZIL HCL 10 MG TABLET PO SCH (08:20)
[2018-08-09] MEDS: CHOLECALCIFEROL (VITAMIN D3) 1,000 UNIT TABLET PO SCH (08:21)
[2018-08-09] MEDS: SERTRALINE 50 MG TABLET. PO SCH (08:23)
[2018-08-09 08:26] LABS: ALBUMIN 3.6 g/dL (3.4-5.0); ALBUMIN/GLOBULIN RATIO 1.1 (1.0-1.7); CALCIUM 9.4 mg/dL (8.5-10.1); CREATININE 0.8 mg/dL (0.7-1.3); POTASSIUM 3.8 mmol/L (3.5-5.1); TOTAL BILIRUBIN 0.6 mg/dL (0.2-1.0); TOTAL PROTEIN 6.8 g/dL (6.4-8.2)
[2018-08-09 15:46] VITALS: BP 104/73
[2018-08-09] MEDS: SIMVASTATIN 20 MG TABLET PO SCH (19:18)
[2018-08-09] MEDS: MIRTAZAPINE 7.5 MG TABLET. PO SCH (19:18)
--- NOTE | 2018-08-09 23:04 | PDOC ---
Exam Note: Sid Note: Please also refer to the separate dictated note~for this date of service dictated separately.~Patient seen individually. Discussed the patient with Nursing staff reviewed the chart.~Reviewed interim history and current functioning. Reviewed vital signs,~Labs/ Radiology~and current medications noted below. Continue current treatment with the changes noted in the dictated addendum note Assessment: Vital Signs: Vital Signs Date Time Temp Pulse Resp B/P (MAP) Pulse Ox O2 Delivery O2 Flow Rate FiO2 08/09/18 15:46 98.2 83 18 104/73 (83) 98 08/05/18 16:40 Room Air I&O Intake and Output 08/09/18 06:59 Intake Total 1080 ml Balance 1080 ml Intake Oral 1080 ml Labs: Laboratory Tests Test 08/09/18 07:30 08/09/18 07:42 08/09/18 12:06 08/09/18 16:59 Glucose (Fingerstick) 127 mg/dL (70-99) H 117 mg/dL (70-99) H 141 mg/dL (70-99) H White Blood Count 6.9 x10^3/uL (4.0-11.0) Red Blood Count 3.74 x10^6/uL (4.30-5.70) L Hemoglobin 11.5 g/dL (13.0-17.5) L Hematocrit 34.5 % (39.0-53.0) L Mean Corpuscular Volume 92 fL (79-100) Mean Corpuscular Hemoglobin 31 pg (25-35) Mean Corpuscular Hemoglobin Concent 33 g/dL (31-37) Red Cell Distribution Width 15.0 % (11.5-14.5) H Platelet Count 158 x10^3/uL (140-400) Neutrophils (%) (Auto) 60 % (31-73) Lymphocytes (%) (Auto) 23 % (24-48) L Monocytes (%) (Auto) 10 % (0-9) H Eosinophils (%) (Auto) 6 % (0-3) H Basophils (%) (Auto) 1 % (0-3) Neutrophils # (Auto) 4.2 x10^3uL (1.8-7.7) Lymphocytes # (Auto) 1.6 x10^3/uL (1.0-4.8) Monocytes # (Auto) 0.7 x10^3/uL (0.0-1.1) Eosinophils # (Auto) 0.4 x10^3/uL (0.0-0.7) Basophils # (Auto) 0.0 x10^3/uL (0.0-0.2) Sodium Level 143 mmol/L (136-145) Potassium Level 3.8 mmol/L (3.5-5.1) Chloride Level 106 mmol/L (98-107) Carbon Dioxide Level 27 mmol/L (21-32) Anion Gap 10 (6-14) Blood Urea Nitrogen 20 mg/dL (8-26) Creatinine 0.8 mg/dL (0.7-1.3) Estimated GFR (Cockcroft-Gault) 91.0 BUN/Creatinine Ratio 25 (6-20) H Glucose Level 140 mg/dL (70-99) H Calcium Level 9.4 mg/dL (8.5-10.1) Total Bilirubin 0.6 mg/dL (0.2-1.0) Aspartate Amino Transferase (AST) 18 U/L (15-37) Alanine Aminotransferase (ALT) 26 U/L (16-63) Alkaline Phosphatase 59 U/L (46-116) Total Protein 6.8 g/dL (6.4-8.2) Albumin 3.6 g/dL (3.4-5.0) Albumin/Globulin Ratio 1.1 (1.0-1.7) Test 08/09/18 19:32 Glucose (Fingerstick) 127 mg/dL (70-99) H Current Medications: Meds: Current Medications Acetaminophen (Tylenol) 500 mg PRN Q8HRS PRN PO PAIN / TEMP; Start 08/04/18 at 03:15 Citalopram Hydrobromide (CeleXA) 10 mg DAILY PO Last administered on 08/05/18at 08:39; Start 08/04/18 at 09:00; Stop 08/05/18 at 19:49; Status DC Isosorbide Mononitrate (Imdur) 30 mg DAILY PO Last administered on 08/04/18at 08:18; Start 08/04/18 at 09:00; Stop 08/05/18 at 11:17; Status DC Levothyroxine Sodium (Synthroid) 175 mcg DAILY06 PO Last administered on 08/09/18 05:41; Start 08/04/18 at 06:00 Metoprolol Tartrate (Lopressor) 25 mg BID PO Last administered on 08/04/18 19:41; Start 08/04/18 at 09:00; Stop 08/05/18 at 11:17; Status DC Aspirin (Aspirin Enteric Coated) 81 mg DAILYWBKFT PO Last administered on 08/09/18 08:19; Start 08/04/18 at 08:00 Vitamin D (Vitamin D3) 2,000 unit DAILY PO Last administered on 08/09/18 08:21; Start 08/04/18 at 09:00 Donepezil HCl (Aricept) 10 mg DAILY PO Last administered on 08/09/18 08:20; Start 08/04/18 at 09:00 Dorzolamide HCl (Trusopt) 1 drop BID OU Last administered on 08/09/18 19:18; Start 08/04/18 at 09:00 Non-Formulary Medication (Loteprednol Etabonate (Lotemax)) 1 drop TID LEFTEYE ; Start 08/04/18 at 09:00; Stop 08/04/18 at 16:36; Status DC Metformin HCl (Glucophage) 1,000 mg BIDWMEALS PO Last administered on 08/09/18 16:56; Start 08/04/18 at 08:00 Nystatin (Mycostatin) 1 hansel PRN BID PRN TP FUNGAL RASH; Start 08/04/18 at 09:00 Simvastatin (Zocor) 20 mg HS PO Last administered on 08/09/18 19:18; Start 08/04/18 at 21:00 Trazodone HCl (Desyrel) 12.5 mg PRN TID PRN PO SLEEP OR MOOD Last administered on 08/06/18 20:33; Start 08/04/18 at 03:30 Acetaminophen (Tylenol) 650 mg PRN Q6HRS PRN PO PAIN / TEMP; Start 08/04/18 at 03:15; Status UNV Multi-Ingredient Ointment (Analgesic [place]) 1 hansel PRN QID PRN TP MUSCLE PAIN; Start 08/04/18 at 03:15 Al Hydroxide/Mg Hydroxide (Mylanta Plus Xs) 15 ml PRN AFTMEALHC PRN PO DYSPEPSIA; Start 08/04/18 at 03:15 Magnesium Hydroxide (Milk Of Magnesia) 2,400 mg PRN QHS PRN PO CONSTIPATION; Start 08/04/18 at 03:15 Prednisolone Acetate (Pred Forte) 1 drop BID OS Last administered on 08/09/18at 19:18; Start 08/04/18 at 21:00 Olanzapine (ZyPREXA ZYDIS) 2.5 mg PRN Q2HR PRN PO PSYCHOSIS Last administered on 08/05/18at 08:42; Start 08/04/18 at 17:30 Sodium Chloride 1,000 ml @ 1,000 mls/hr 1X ONCE IV Last administered on 08/05/18at 11:15; Start 08/05/18 at 11:15; Stop 08/05/18 at 12:14; Status DC Sertraline HCl (Zoloft) 25 mg DAILY PO Last administered on 08/08/18at 07:25; Start 08/06/18 at 09:00; Stop 08/08/18 at 17:33; Status DC Mirtazapine (Remeron) 7.5 mg QHS PO Last administered on 08/09/18at 19:18; Start 08/07/18 at 21:00 Sertraline HCl (Zoloft) 50 mg DAILY PO Last administered on 08/09/18at 08:23; Start 08/09/18 at 09:00 Active Scripts Active Reported Nystatin 15 Gm Cream..g. 15 Gm TP PRN BID PRN Trazodone Hcl 50 Mg Tablet 12.5 Mg PO PRN TID AT [id number] PRN Aspir-Low (Aspirin) 81 Mg Tablet.dr 1 Tab PO DAILY Tylenol (Acetaminophen) 325 Mg Tablet 500 Mg PO PRN Q8HRS PRN Dorzolamide Hcl 10 Ml Drops 1 Drop EACHEYE BID Donepezil Hcl 10 Mg Tab.rapdis 10 Mg PO DAILY Metoprolol Tartrate 25 Mg Tablet 25 Mg PO BID Simvastatin 20 Mg Tablet 20 Mg PO HS Metformin Hcl 1,000 Mg Tablet 1,000 Mg PO BID Lotemax (Loteprednol Etabonate) 5 Ml Drops.susp 1 Drop LEFTEYE TID Levothyroxine Sodium 175 Mcg Tablet 175 Mcg PO DAILYAC Isosorbide Mononitrate Er (Isosorbide Mononitrate) 30 Mg Tab.er.24h 30 Mg PO DAILY Citalopram Hbr (Citalopram Hydrobromide) 10 Mg Tablet 10 Mg PO DAILY Vitamin D (Cholecalciferol (Vitamin D3)) 1,000 Unit Capsule 2 Cap PO DAILY I have reviewed the current psychotropics carefully including drug interactions. Risk benefit ratio favors no change other than as noted in my dictated progress note. Diagnosis: Problems: (1) Anxiety disorder (2) Dementia, vascular, with depression (3) Dementia, vascular, with delusions (4) Dementia in Alzheimer's disease with depression (5) Dementia in Alzheimer's disease with delusions (6) Impulse control disorder SON POLO MD Aug 09, 2018 23:04
--- NOTE | 2018-08-10 02:27 | PN ---
DATE: 08/08/2018 PSYCHIATRIC PROGRESS NOTE This is a late entry of 08/08/2018 covers elements not covered in my initial note. SUBJECTIVE: I met with the patient in the evening. The patient slept 7-1/4 hours previous night. He remains confused, had a good day. He accidentally urinated on himself the previous night. REVIEW OF SYSTEMS: Ambulation impaired with walker. No CV, , pulmonary, eye, ENT system symptoms on review. Reliability poor. MENTAL STATUS EXAM: Oriented to himself. Insight, judgment, recent and remote memory, attention, concentration, fund of knowledge poor, consistent with his diagnosis mentioned in my initial note. PLAN: No change from initial note, but we will increase the Zoloft from 25 mg a day to 50 mg a day after he has been on 25 for 3 days. Rest unchanged. MAN Shelbie POLO MD DR: CARL/efra JOB#: [id number] / [id number]
[2018-08-10] MEDS: LEVOTHYROXINE 175 MCG TABLET PO SCH (06:03)
[2018-08-10 06:14] VITALS: BP 119/73
[2018-08-10] MEDS: CHOLECALCIFEROL (VITAMIN D3) 1,000 UNIT TABLET PO SCH (08:20)
[2018-08-10] MEDS: DONEPEZIL HCL 10 MG TABLET PO SCH (08:21)
[2018-08-10] MEDS: ASPIRIN ENTERIC COATED 81 MG TABLET.DR. PO SCH (08:21)
[2018-08-10] MEDS: prednisoLONE ACETATE 1% OPHTH SUSPENSION 5ML BOTTLE. OS SCH ×2 (08:21→20:30)
[2018-08-10] MEDS: SERTRALINE 50 MG TABLET. PO SCH (08:21)
[2018-08-10] MEDS: metFORMIN 500 MG TABLET PO SCH ×2 (08:21→17:24)
[2018-08-10] MEDS: DORZOLAMIDE 2% OPHTH SOLUTION 10ML BOTTLE. OU SCH ×2 (08:22→20:30)
[2018-08-10 16:05] VITALS: BP 120/70
[2018-08-10] MEDS: SIMVASTATIN 20 MG TABLET PO SCH ×2 (20:19→20:30)
[2018-08-10] MEDS: MIRTAZAPINE 7.5 MG TABLET. PO SCH (20:19)
--- NOTE | 2018-08-10 23:08 | PDOC ---
Exam Note: Sid Note: Please also refer to the separate dictated note~for this date of service dictated separately.~Patient seen individually. Discussed the patient with Nursing staff reviewed the chart.~Reviewed interim history and current functioning. Reviewed vital signs,~Labs/ Radiology~and current medications noted below. Continue current treatment with the changes noted in the dictated addendum note Assessment: Vital Signs: Vital Signs Date Time Temp Pulse Resp B/P (MAP) Pulse Ox O2 Delivery O2 Flow Rate FiO2 08/10/18 16:05 97.9 81 18 120/70 (87) 97 08/05/18 16:40 Room Air I&O Intake and Output 08/10/18 07:00 Intake Total 600 ml Balance 600 ml Intake Oral 600 ml Labs: Laboratory Tests Test 08/10/18 07:39 08/10/18 17:03 Glucose (Fingerstick) 148 mg/dL (70-99) H 161 mg/dL (70-99) H Current Medications: Meds: Current Medications Acetaminophen (Tylenol) 500 mg PRN Q8HRS PRN PO PAIN / TEMP; Start 08/04/18 at 03:15 Citalopram Hydrobromide (CeleXA) 10 mg DAILY PO Last administered on 08/05/18at 08:39; Start 08/04/18 at 09:00; Stop 08/05/18 at 19:49; Status DC Isosorbide Mononitrate (Imdur) 30 mg DAILY PO Last administered on 08/04/18 08:18; Start 08/04/18 at 09:00; Stop 08/05/18 at 11:17; Status DC Levothyroxine Sodium (Synthroid) 175 mcg DAILY06 PO Last administered on 08/10/18at 06:03; Start 08/04/18 at 06:00 Metoprolol Tartrate (Lopressor) 25 mg BID PO Last administered on 08/04/18 19:41; Start 08/04/18 at 09:00; Stop 08/05/18 at 11:17; Status DC Aspirin (Aspirin Enteric Coated) 81 mg DAILYWBKFT PO Last administered on 08/10/18at 08:21; Start 08/04/18 at 08:00 Vitamin D (Vitamin D3) 2,000 unit DAILY PO Last administered on 08/10/18at 08:20; Start 08/04/18 at 09:00 Donepezil HCl (Aricept) 10 mg DAILY PO Last administered on 08/10/18 08:21; Start 08/04/18 at 09:00 Dorzolamide HCl (Trusopt) 1 drop BID OU Last administered on 08/10/18at 08:22; Start 08/04/18 at 09:00 Non-Formulary Medication (Loteprednol Etabonate (Lotemax)) 1 drop TID LEFTEYE ; Start 08/04/18 at 09:00; Stop 08/04/18 at 16:36; Status DC Metformin HCl (Glucophage) 1,000 mg BIDWMEALS PO Last administered on 08/10/18 17:24; Start 08/04/18 at 08:00 Nystatin (Mycostatin) 1 hansel PRN BID PRN TP FUNGAL RASH; Start 08/04/18 at 09:00 Simvastatin (Zocor) 20 mg HS PO Last administered on 08/09/18 19:18; Start 08/04/18 at 21:00 Trazodone HCl (Desyrel) 12.5 mg PRN TID PRN PO SLEEP OR MOOD Last administered on 08/06/18 20:33; Start 08/04/18 at 03:30 Acetaminophen (Tylenol) 650 mg PRN Q6HRS PRN PO PAIN / TEMP; Start 08/04/18 at 03:15; Status UNV Multi-Ingredient Ointment (Analgesic [place]) 1 hansel PRN QID PRN TP MUSCLE PAIN; Start 08/04/18 at 03:15 Al Hydroxide/Mg Hydroxide (Mylanta Plus Xs) 15 ml PRN AFTMEALHC PRN PO DYSPEPSIA; Start 08/04/18 at 03:15 Magnesium Hydroxide (Milk Of Magnesia) 2,400 mg PRN QHS PRN PO CONSTIPATION; Start 08/04/18 at 03:15 Prednisolone Acetate (Pred Forte) 1 drop BID OS Last administered on 08/10/18 08:21; Start 08/04/18 at 21:00 Olanzapine (ZyPREXA ZYDIS) 2.5 mg PRN Q2HR PRN PO PSYCHOSIS Last administered on 08/10/18at 20:32; Start 08/04/18 at 17:30 Sodium Chloride 1,000 ml @ 1,000 mls/hr 1X ONCE IV Last administered on 08/05/18at 11:15; Start 08/05/18 at 11:15; Stop 08/05/18 at 12:14; Status DC Sertraline HCl (Zoloft) 25 mg DAILY PO Last administered on 08/08/18at 07:25; Start 08/06/18 at 09:00; Stop 08/08/18 at 17:33; Status DC Mirtazapine (Remeron) 7.5 mg QHS PO Last administered on 08/10/18at 20:19; Start 08/07/18 at 21:00 Sertraline HCl (Zoloft) 50 mg DAILY PO Last administered on 08/10/18at 08:21; Start 08/09/18 at 09:00 Glimepiride (Amaryl) 2 mg DAILY PO ; Start 08/11/18 at 09:00 Active Scripts Active Reported Nystatin 15 Gm Cream..g. 15 Gm TP PRN BID PRN Trazodone Hcl 50 Mg Tablet 12.5 Mg PO PRN TID AT [id number] PRN Aspir-Low (Aspirin) 81 Mg Tablet.dr 1 Tab PO DAILY Tylenol (Acetaminophen) 325 Mg Tablet 500 Mg PO PRN Q8HRS PRN Dorzolamide Hcl 10 Ml Drops 1 Drop EACHEYE BID Donepezil Hcl 10 Mg Tab.rapdis 10 Mg PO DAILY Metoprolol Tartrate 25 Mg Tablet 25 Mg PO BID Simvastatin 20 Mg Tablet 20 Mg PO HS Metformin Hcl 1,000 Mg Tablet 1,000 Mg PO BID Lotemax (Loteprednol Etabonate) 5 Ml Drops.susp 1 Drop LEFTEYE TID Levothyroxine Sodium 175 Mcg Tablet 175 Mcg PO DAILYAC Isosorbide Mononitrate Er (Isosorbide Mononitrate) 30 Mg Tab.er.24h 30 Mg PO DAILY Citalopram Hbr (Citalopram Hydrobromide) 10 Mg Tablet 10 Mg PO DAILY Vitamin D (Cholecalciferol (Vitamin D3)) 1,000 Unit Capsule 2 Cap PO DAILY I have reviewed the current psychotropics carefully including drug interactions. Risk benefit ratio favors no change other than as noted in my dictated progress note. Diagnosis: Problems: (1) Anxiety disorder (2) Dementia, vascular, with depression (3) Dementia, vascular, with delusions (4) Dementia in Alzheimer's disease with depression (5) Dementia in Alzheimer's disease with delusions (6) Impulse control disorder SON POLO MD Aug 10, 2018 23:08
[2018-08-11] MEDS: LEVOTHYROXINE 175 MCG TABLET PO SCH (06:34)
[2018-08-11 06:37] VITALS: BP 114/71
[2018-08-11] MEDS: SERTRALINE 50 MG TABLET. PO SCH (08:04)
[2018-08-11] MEDS: CHOLECALCIFEROL (VITAMIN D3) 1,000 UNIT TABLET PO SCH (08:04)
[2018-08-11] MEDS: DONEPEZIL HCL 10 MG TABLET PO SCH (08:05)
[2018-08-11] MEDS: metFORMIN 500 MG TABLET PO SCH ×2 (08:05→17:11)
[2018-08-11] MEDS: ASPIRIN ENTERIC COATED 81 MG TABLET.DR. PO SCH (08:05)
[2018-08-11] MEDS: GLIMEPIRIDE 2 MG TABLET PO SCH (08:06)
[2018-08-11] MEDS: prednisoLONE ACETATE 1% OPHTH SUSPENSION 5ML BOTTLE. OS SCH ×2 (08:07→20:43)
[2018-08-11] MEDS: DORZOLAMIDE 2% OPHTH SOLUTION 10ML BOTTLE. OU SCH ×2 (08:07→20:43)
[2018-08-11 15:24] VITALS: BP 142/65
--- NOTE | 2018-08-11 17:24 | PN ---
DATE: 08/09/2018 PSYCHIATRIC PROGRESS NOTE This late entry 08/09/2018 covers elements not covered in my initial note. SUBJECTIVE: I met with the patient in the evening. The patient slept 6-3/4 hours previous night. He did well the previous night reasonable during the day. He remains confused. Ambulates with a walker. REVIEW OF SYSTEMS: No CV, , pulmonary, eye, ENT system symptoms on review. Reliability poor. MENTAL STATUS EXAM: Oriented to himself. Insight, judgment, recent and remote memory, attention, concentration, fund of knowledge poor, consistent with his diagnosis mentioned in my initial note. PLAN: No change from initial note. MAN Shelbie POLO MD DR: CARL/efra JOB#: [id number] / [id number]
[2018-08-11] MEDS: SIMVASTATIN 20 MG TABLET PO SCH (20:38)
[2018-08-11] MEDS: MIRTAZAPINE 7.5 MG TABLET. PO SCH (20:38)
--- NOTE | 2018-08-11 22:46 | PDOC ---
Exam Note: Sid Note: Please also refer to the separate dictated note~for this date of service dictated separately.~Patient seen individually. Discussed the patient with Nursing staff reviewed the chart.~Reviewed interim history and current functioning. Reviewed vital signs,~Labs/ Radiology~and current medications noted below. Continue current treatment with the changes noted in the dictated addendum note Assessment: Vital Signs/I&O: Vital Signs Date Time Temp Pulse Resp B/P (MAP) Pulse Ox O2 Delivery O2 Flow Rate FiO2 08/11/18 15:24 98.2 86 16 142/65 (90) 98 08/05/18 16:40 Room Air I & O 08/10/18 08/10/18 08/11/18 15:00 23:00 07:00 Intake Total 240 ml 600 ml Balance 240 ml 600 ml Labs: Laboratory Tests Test 08/11/18 07:23 08/11/18 19:08 Glucose (Fingerstick) 134 mg/dL (70-99) H 171 mg/dL (70-99) H Current Medications: Meds: Current Medications Medications (Trade) Dose Ordered Sig/Clint Route PRN Reason Start Time Stop Time Status Last Admin Dose Admin Glimepiride (Amaryl) 2 mg DAILY PO 08/11/18 09:00 08/11/18 08:06 I have reviewed the current psychotropics carefully including drug interactions. Risk benefit ratio favors no change other than as noted in my dictated progress note. Diagnosis: Problems: (1) Anxiety disorder (2) Dementia, vascular, with depression (3) Dementia, vascular, with delusions (4) Dementia in Alzheimer's disease with depression (5) Dementia in Alzheimer's disease with delusions (6) Impulse control disorder SON POLO MD Aug 11, 2018 22:46
--- NOTE | 2018-08-12 00:22 | PN ---
DATE: 08/10/2018 PSYCHIATRIC PROGRESS NOTE This late entry 08/10/2018 covers elements not covered in my initial note. SUBJECTIVE: I met with the patient in the evening. The patient slept 6-1/2 hours previous night. He remains confused, has been flirtatious, otherwise cooperative at times, demanding, alert, oriented to himself, knew that he was in [place]. REVIEW OF SYSTEMS: Ambulation impaired with walker. No CV, , pulmonary, eye, ENT system symptoms on review. Reliability poor. MENTAL STATUS EXAM: Oriented to himself. Insight, judgment, recent and remote memory, attention, concentration, fund of knowledge poor consistent with his diagnosis mentioned in my initial note. PLAN: No change from initial note, but we may need to increase Zoloft for mood and anxiety symptoms as clinically indicated in the next day or so. MAN Shelbie POLO MD DR: CARL/efra JOB#: [id number] / [id number]
[2018-08-12 05:46] VITALS: BP 122/69
[2018-08-12] MEDS: LEVOTHYROXINE 175 MCG TABLET PO SCH (05:57)
[2018-08-12] MEDS: GLIMEPIRIDE 2 MG TABLET PO SCH (08:02)
[2018-08-12] MEDS: DORZOLAMIDE 2% OPHTH SOLUTION 10ML BOTTLE. OU SCH ×2 (08:02→20:54)
[2018-08-12] MEDS: DONEPEZIL HCL 10 MG TABLET PO SCH (08:02)
[2018-08-12] MEDS: prednisoLONE ACETATE 1% OPHTH SUSPENSION 5ML BOTTLE. OS SCH ×2 (08:02→20:54)
[2018-08-12] MEDS: metFORMIN 500 MG TABLET PO SCH ×2 (08:02→17:08)
[2018-08-12] MEDS: ASPIRIN ENTERIC COATED 81 MG TABLET.DR. PO SCH (08:02)
[2018-08-12] MEDS: CHOLECALCIFEROL (VITAMIN D3) 1,000 UNIT TABLET PO SCH (08:02)
[2018-08-12] MEDS: SERTRALINE 50 MG TABLET. PO SCH (08:04)
[2018-08-12 15:50] VITALS: BP 120/74
[2018-08-12] MEDS: SIMVASTATIN 20 MG TABLET PO SCH (19:46)
[2018-08-12] MEDS: MIRTAZAPINE 7.5 MG TABLET. PO SCH (19:46)
--- NOTE | 2018-08-12 22:55 | PDOC ---
Exam Note: Sid Note: Please also refer to the separate dictated note~for this date of service dictated separately.~Patient seen individually. Discussed the patient with Nursing staff reviewed the chart.~Reviewed interim history and current functioning. Reviewed vital signs,~Labs/ Radiology~and current medications noted below. Continue current treatment with the changes noted in the dictated addendum note Assessment: Vital Signs/I&O: Vital Signs Date Time Temp Pulse Resp B/P (MAP) Pulse Ox O2 Delivery O2 Flow Rate FiO2 08/12/18 15:50 97.4 74 20 120/74 (89) 96 08/12/18 05:46 Room Air I & O 08/11/18 08/11/18 08/12/18 14:59 22:59 06:59 Intake Total 840 ml 240 ml 120 ml Balance 840 ml 240 ml 120 ml Labs: Laboratory Tests Test 08/12/18 07:32 Glucose (Fingerstick) 130 mg/dL (70-99) H Current Medications: Meds: Current Medications Medications (Trade) Dose Ordered Sig/Clint Route PRN Reason Start Time Stop Time Status Last Admin Dose Admin Sertraline HCl (Zoloft) 75 mg DAILY PO 08/12/18 09:00 08/12/18 08:04 I have reviewed the current psychotropics carefully including drug interactions. Risk benefit ratio favors no change other than as noted in my dictated progress note. Diagnosis: Problems: (1) Anxiety disorder (2) Dementia, vascular, with depression (3) Dementia, vascular, with delusions (4) Dementia in Alzheimer's disease with depression (5) Dementia in Alzheimer's disease with delusions (6) Impulse control disorder SON POLO MD Aug 12, 2018 22:55
[2018-08-13 05:50] VITALS: BP 90/57
[2018-08-13] MEDS: LEVOTHYROXINE 175 MCG TABLET PO SCH (06:02)
[2018-08-13] MEDS: ASPIRIN ENTERIC COATED 81 MG TABLET.DR. PO SCH (08:32)
[2018-08-13] MEDS: GLIMEPIRIDE 2 MG TABLET PO SCH (08:32)
[2018-08-13] MEDS: SERTRALINE 50 MG TABLET. PO SCH (08:32)
[2018-08-13] MEDS: metFORMIN 500 MG TABLET PO SCH ×2 (08:32→17:25)
[2018-08-13] MEDS: DONEPEZIL HCL 10 MG TABLET PO SCH (08:32)
[2018-08-13] MEDS: CHOLECALCIFEROL (VITAMIN D3) 1,000 UNIT TABLET PO SCH (08:33)
[2018-08-13] MEDS: prednisoLONE ACETATE 1% OPHTH SUSPENSION 5ML BOTTLE. OS SCH ×2 (08:34→19:49)
[2018-08-13] MEDS: DORZOLAMIDE 2% OPHTH SOLUTION 10ML BOTTLE. OU SCH ×2 (08:34→19:49)
[2018-08-13 15:34] VITALS: BP 137/85
[2018-08-13] MEDS: SIMVASTATIN 20 MG TABLET PO SCH (19:50)
[2018-08-13] MEDS: DIVALPROEX 125 MG CAP.SPRINK PO SCH (19:50)
[2018-08-13] MEDS: MIRTAZAPINE 7.5 MG TABLET. PO SCH (19:50)
--- NOTE | 2018-08-13 22:02 | PN ---
DATE: 08/11/2018 PSYCHIATRIC PROGRESS NOTE This late entry of 08/11 covers the elements not covered in my initial note. HISTORY OF PRESENT ILLNESS: I met with the patient in the evening. The patient slept 7-1/2 hours previous night. Previous night, he was quite sarcastic with a male nursing staff, resistive, delusional, was trying to pocket his medications, refusing to give it back when staff intervened. REVIEW OF SYSTEMS: Ambulation impaired with walker. No CV, , pulmonary, eye, ENT system symptoms on review. Reliability poor. MENTAL STATUS EXAM: Oriented to himself. Insight, judgment, recent and remote memory, attention, concentration, fund of knowledge poor, consistent with his diagnosis mentioned in my initial note. PLAN: Increase Zoloft to 75 mg a day after he has been on 50 mg for 3 days. Continue rest unchanged. MAN Shelbie POLO MD DR: CARL/efra JOB#: [id number] / [id number]
--- NOTE | 2018-08-13 22:24 | PDOC ---
Exam Note: Sid Note: Please also refer to the separate dictated note~for this date of service dictated separately.~Patient seen individually. Discussed the patient with Nursing staff reviewed the chart.~Reviewed interim history and current functioning. Reviewed vital signs,~Labs/ Radiology~and current medications noted below. Continue current treatment with the changes noted in the dictated addendum note Assessment: Vital Signs/I&O: Vital Signs Date Time Temp Pulse Resp B/P (MAP) Pulse Ox O2 Delivery O2 Flow Rate FiO2 08/13/18 15:34 97.3 98 16 137/85 (102) 94 08/12/18 05:46 Room Air I & O 08/12/18 08/12/18 08/13/18 15:00 23:00 07:00 Intake Total 480 ml 240 ml 120 ml Balance 480 ml 240 ml 120 ml Labs: Laboratory Tests Test 08/13/18 07:04 Glucose (Fingerstick) 130 mg/dL (70-99) H Current Medications: Meds: Current Medications Medications (Trade) Dose Ordered Sig/Clint Route PRN Reason Start Time Stop Time Status Last Admin Dose Admin Divalproex Sodium (Depakote Sprinkles) 250 mg HS PO 08/13/18 21:00 08/13/18 19:50 I have reviewed the current psychotropics carefully including drug interactions. Risk benefit ratio favors no change other than as noted in my dictated progress note. Diagnosis: Problems: (1) Anxiety disorder (2) Dementia, vascular, with depression (3) Dementia, vascular, with delusions (4) Dementia in Alzheimer's disease with depression (5) Dementia in Alzheimer's disease with delusions (6) Impulse control disorder SON POLO MD Aug 13, 2018 22:24
[2018-08-14] MEDS: LEVOTHYROXINE 175 MCG TABLET PO SCH (05:46)
[2018-08-14 06:10] VITALS: BP 104/53
[2018-08-14] MEDS: GLIMEPIRIDE 2 MG TABLET PO SCH (08:11)
[2018-08-14] MEDS: DONEPEZIL HCL 10 MG TABLET PO SCH (08:11)
[2018-08-14] MEDS: SERTRALINE 50 MG TABLET. PO SCH (08:11)
[2018-08-14] MEDS: ASPIRIN ENTERIC COATED 81 MG TABLET.DR. PO SCH (08:11)
[2018-08-14] MEDS: CHOLECALCIFEROL (VITAMIN D3) 1,000 UNIT TABLET PO SCH (08:11)
[2018-08-14] MEDS: metFORMIN 500 MG TABLET PO SCH ×2 (08:11→17:12)
[2018-08-14] MEDS: DORZOLAMIDE 2% OPHTH SOLUTION 10ML BOTTLE. OU SCH ×2 (08:12→19:36)
[2018-08-14] MEDS: prednisoLONE ACETATE 1% OPHTH SUSPENSION 5ML BOTTLE. OS SCH ×2 (08:12→19:36)
[2018-08-14 16:10] VITALS: BP 112/55
[2018-08-14] MEDS: MIRTAZAPINE 7.5 MG TABLET. PO SCH (19:36)
[2018-08-14] MEDS: DIVALPROEX 125 MG CAP.SPRINK PO SCH (19:36)
[2018-08-14] MEDS: SIMVASTATIN 20 MG TABLET PO SCH (19:36)
--- NOTE | 2018-08-14 22:38 | PDOC ---
Exam Note: Sid Note: Please also refer to the separate dictated note~for this date of service dictated separately.~Patient seen individually. Discussed the patient with Nursing staff reviewed the chart.~Reviewed interim history and current functioning. Reviewed vital signs,~Labs/ Radiology~and current medications noted below. Continue current treatment with the changes noted in the dictated addendum note Assessment: Vital Signs/I&O: Vital Signs Date Time Temp Pulse Resp B/P (MAP) Pulse Ox O2 Delivery O2 Flow Rate FiO2 08/14/18 16:10 98.7 64 16 112/55 (74) 94 08/12/18 05:46 Room Air I & O 08/13/18 08/13/18 08/14/18 14:59 22:59 06:59 Intake Total 840 ml 480 ml Balance 840 ml 480 ml Labs: Laboratory Tests Test 08/14/18 07:34 08/14/18 12:08 Glucose (Fingerstick) 124 mg/dL (70-99) H 125 mg/dL (70-99) H Current Medications: I have reviewed the current psychotropics carefully including drug interactions. Risk benefit ratio favors no change other than as noted in my dictated progress note. Diagnosis: Problems: (1) Anxiety disorder (2) Dementia, vascular, with depression (3) Dementia, vascular, with delusions (4) Dementia in Alzheimer's disease with depression (5) Dementia in Alzheimer's disease with delusions (6) Impulse control disorder SON POLO MD Aug 14, 2018 22:38
--- NOTE | 2018-08-14 23:26 | PN ---
DATE: 08/12/2018 PSYCHIATRIC PROGRESS NOTE This late entry 08/12 covers elements not covered in my initial note. SUBJECTIVE: I met with the patient in the evening. The patient slept 7 hours previous night. He has been delusional, believes one of the other demented patients on the unit is his . He has been yelling, labile in his mood. Zyprexa was given p.r.n. Staff had called me as an emergency. He has been arguing with staff. Remains quite intermittently explosive. REVIEW OF SYSTEMS: Ambulation impaired with walker. No CV, , pulmonary, eye, ENT system symptoms on review. Reliability poor. MENTAL STATUS EXAMINATION: Oriented to himself. Insight, judgment, recent and remote memory, attention, concentration, fund of knowledge poor, consistent with his diagnosis mentioned in my initial note. IMPRESSION: Major neurocognitive disorder, Alzheimer, vascular with delusion, depression, behavioral disturbance; anxiety disorder, unspecified; impulse control disorder, unspecified. PLAN: Continue current psychotropics, Remeron 7.5 at bedtime, Zyprexa p.r.n., Zoloft 75 mg a day, Aricept 10 mg b.i.d. Start Depakote 250 mg at bedtime. Check CBC, CMP, valproic acid level in 3 days. Depakote is for his impulse control, significant mood lability within the context of his dementia. SON POLO MD DR: CARL/efra JOB#: [id number] / [id number]
--- NOTE | 2018-08-15 01:04 | PN ---
DATE: 08/13/2018 PSYCHIATRIC PROGRESS NOTE This is a late entry for 08/13/2018, covers elements not covered in my initial note. SUBJECTIVE: I met with the patient in the evening. The patient slept 7-1/2 hours previous night. He did well in the morning, compliant with his medications. At around 3:30 p.m., he was set on going to [place], going into peers' room, difficult to redirect, confused. REVIEW OF SYSTEMS: Ambulation impaired with walker. No CV, , pulmonary, eye, ENT system symptoms on review. Reliability poor. MENTAL STATUS EXAM: Oriented to himself. Insight, judgment, recent and remote memory, attention, concentration, fund of knowledge poor, consistent with his diagnosis mentioned in my initial note. PLAN: No change from initial note. MAN Shelbie POLO MD DR: CARL/efra JOB#: [id number] / [id number]
[2018-08-15 06:00] VITALS: BP 127/78
[2018-08-15] MEDS: LEVOTHYROXINE 175 MCG TABLET PO SCH (06:05)
[2018-08-15] MEDS: ASPIRIN ENTERIC COATED 81 MG TABLET.DR. PO SCH (07:44)
[2018-08-15] MEDS: CHOLECALCIFEROL (VITAMIN D3) 1,000 UNIT TABLET PO SCH (07:44)
[2018-08-15] MEDS: GLIMEPIRIDE 2 MG TABLET PO SCH (07:44)
[2018-08-15] MEDS: metFORMIN 500 MG TABLET PO SCH ×2 (07:44→17:27)
[2018-08-15] MEDS: DONEPEZIL HCL 10 MG TABLET PO SCH (07:44)
[2018-08-15] MEDS: SERTRALINE 50 MG TABLET. PO SCH (07:44)
[2018-08-15] MEDS: DORZOLAMIDE 2% OPHTH SOLUTION 10ML BOTTLE. OU SCH ×2 (07:45→19:43)
[2018-08-15] MEDS: prednisoLONE ACETATE 1% OPHTH SUSPENSION 5ML BOTTLE. OS SCH ×2 (07:45→19:43)
--- NOTE | 2018-08-15 14:09 | PN ---
DATE: 08/14/2018 PSYCHIATRIC PROGRESS NOTE This late entry, 08/14/2018, covers elements not covered in my initial note. SUBJECTIVE: I met with the patient in the evening. The patient slept 5-3/4 hours previous night. He remains confused, gets somewhat anxious, was agitated at another patient who was provoking him. He did go back to his room rather than get into a confrontation. At previous night, he felt his had visited him. REVIEW OF SYSTEMS: Ambulation impaired with walker. No CV, , pulmonary, eye, ENT system symptoms on review. Reliability poor. MENTAL STATUS EXAM: Oriented to himself. Insight, judgment, recent and remote memory, attention, concentration, fund of knowledge poor, consistent with his diagnosis mentioned in my initial note. PLAN: No change from initial note, but if needed we may adjust the Zoloft further and Depakote as a mood stabilizer for impulse control problems. MAN Shelbie POLO MD DR: CARL/efra JOB#: [id number] / [id number]
[2018-08-15 15:49] VITALS: BP 104/57
[2018-08-15] MEDS: SIMVASTATIN 20 MG TABLET PO SCH (19:42)
[2018-08-15] MEDS: DIVALPROEX 125 MG CAP.SPRINK PO SCH (19:42)
[2018-08-15] MEDS: MIRTAZAPINE 7.5 MG TABLET. PO SCH (19:42)
--- NOTE | 2018-08-15 22:19 | PDOC ---
Exam Note: Sid Note: Please also refer to the separate dictated note~for this date of service dictated separately.~Patient seen individually. Discussed the patient with Nursing staff reviewed the chart.~Reviewed interim history and current functioning. Reviewed vital signs,~Labs/ Radiology~and current medications noted below. Continue current treatment with the changes noted in the dictated addendum note Assessment: Vital Signs/I&O: Vital Signs Date Time Temp Pulse Resp B/P (MAP) Pulse Ox O2 Delivery O2 Flow Rate FiO2 08/15/18 15:49 98.0 87 18 104/57 (73) 98 08/12/18 05:46 Room Air I & O 08/14/18 08/14/18 08/15/18 14:59 22:59 06:59 Intake Total 360 ml 240 ml 120 ml Balance 360 ml 240 ml 120 ml Labs: Laboratory Tests Test 08/15/18 07:57 Glucose (Fingerstick) 106 mg/dL (70-99) H Current Medications: I have reviewed the current psychotropics carefully including drug interactions. Risk benefit ratio favors no change other than as noted in my dictated progress note. Diagnosis: Problems: (1) Anxiety disorder (2) Dementia, vascular, with depression (3) Dementia, vascular, with delusions (4) Dementia in Alzheimer's disease with depression (5) Dementia in Alzheimer's disease with delusions (6) Impulse control disorder SON POLO MD Aug 15, 2018 22:19
[2018-08-16] MEDS: LEVOTHYROXINE 175 MCG TABLET PO SCH (06:06)
[2018-08-16 06:11] VITALS: BP 102/59
[2018-08-16 07:12] LABS: BASO % 1 % (0-3); EOS # 0.4 x10^3/uL (0.0-0.7); EOS % 6 % (0-3); HEMATOCRIT 33.6 % (39.0-53.0); HEMOGLOBIN 11.1 g/dL (13.0-17.5); LYMPH # 1.6 x10^3/uL (1.0-4.8); LYMPH % 25 % (24-48); MEAN CORPUSCULAR HEMOGLOBIN 31 pg (25-35); MEAN CORPUSCULAR HGB CONC 33 g/dL (31-37); MEAN CORPUSCULAR VOLUME 92 fL (79-100); MONO # 0.6 x10^3/uL (0.0-1.1); MONO % 10 % (0-9); NEUT # 3.9 x10^3uL (1.8-7.7); NEUT % 59 % (31-73); PLATELET COUNT 157 x10^3/uL (140-400); RED BLOOD COUNT 3.63 x10^6/uL (4.30-5.70); RED CELL DISTRIBUTION WIDTH 14.5 % (11.5-14.5); WHITE BLOOD COUNT 6.7 x10^3/uL (4.0-11.0)
[2018-08-16 07:26] LABS: ALBUMIN 3.4 g/dL (3.4-5.0); ALK PHOS 59 U/L (46-116); ALT (SGPT) 25 U/L (16-63); ANION GAP 10 (6-14); AST (SGOT) 18 U/L (15-37); BLOOD UREA NITROGEN 13 mg/dL (8-26); BUN/CREATININE RATIO 16 (6-20); CALCIUM 9.2 mg/dL (8.5-10.1); CARBON DIOXIDE 28 mmol/L (21-32); CHLORIDE 105 mmol/L (98-107); CREATININE 0.8 mg/dL (0.7-1.3); GLUCOSE 92 mg/dL (70-99); POTASSIUM 3.6 mmol/L (3.5-5.1); SODIUM 143 mmol/L (136-145); TOTAL BILIRUBIN 0.5 mg/dL (0.2-1.0); TOTAL PROTEIN 6.8 g/dL (6.4-8.2)
[2018-08-16 07:33] LABS: VAL ACID 17 mcg/mL (50-100)
[2018-08-16] MEDS: DONEPEZIL HCL 10 MG TABLET PO SCH (07:52)
[2018-08-16] MEDS: DORZOLAMIDE 2% OPHTH SOLUTION 10ML BOTTLE. OU SCH ×2 (07:53→19:52)
[2018-08-16] MEDS: CHOLECALCIFEROL (VITAMIN D3) 1,000 UNIT TABLET PO SCH (07:53)
[2018-08-16] MEDS: GLIMEPIRIDE 2 MG TABLET PO SCH (07:53)
[2018-08-16] MEDS: ASPIRIN ENTERIC COATED 81 MG TABLET.DR. PO SCH (07:53)
[2018-08-16] MEDS: prednisoLONE ACETATE 1% OPHTH SUSPENSION 5ML BOTTLE. OS SCH ×2 (07:53→19:51)
[2018-08-16] MEDS: metFORMIN 500 MG TABLET PO SCH ×2 (07:53→18:12)
[2018-08-16] MEDS: SERTRALINE 100 MG TABLET. PO SCH (07:54)
[2018-08-16 15:37] LABS: CLARITY,URINE HAZY; COLOR,URINE AMBER
[2018-08-16 15:38] LABS: BACTERIA,URINE 0 /HPF (0-FEW); BILIRUBIN,URINE NEG (NEG); GLUCOSE,URINE NEG (NEG); NITRITE,URINE NEG (NEG); RBC,URINE 0 /HPF (0-2); SQUAMOUS EPITHELIAL CELL,UR OCC /LPF; UROBILINOGEN,URINE 4 mg/dL (0.2 mg/dL); WBC,URINE 0 /HPF (0-4)
[2018-08-16 16:05] VITALS: BP 111/72
[2018-08-16] MEDS: MIRTAZAPINE 7.5 MG TABLET. PO SCH (19:51)
[2018-08-16] MEDS: SIMVASTATIN 20 MG TABLET PO SCH (19:51)
[2018-08-16] MEDS: DIVALPROEX 125 MG CAP.SPRINK PO SCH (19:51)
--- NOTE | 2018-08-16 22:16 | PDOC ---
Exam Note: Sid Note: Please also refer to the separate dictated note~for this date of service dictated separately.~Patient seen individually. Discussed the patient with Nursing staff reviewed the chart.~Reviewed interim history and current functioning. Reviewed vital signs,~Labs/ Radiology~and current medications noted below. Continue current treatment with the changes noted in the dictated addendum note Assessment: Vital Signs/I&O: Vital Signs Date Time Temp Pulse Resp B/P (MAP) Pulse Ox O2 Delivery O2 Flow Rate FiO2 08/16/18 16:05 97.7 79 20 111/72 (85) 92 08/16/18 06:11 Room Air I & O 08/15/18 08/15/18 08/16/18 14:59 22:59 06:59 Intake Total 960 ml 240 ml 120 ml Balance 960 ml 240 ml 120 ml Labs: Laboratory Tests Test 08/16/18 06:41 08/16/18 07:36 08/16/18 14:30 White Blood Count 6.7 x10^3/uL (4.0-11.0) Red Blood Count 3.63 x10^6/uL (4.30-5.70) L Hemoglobin 11.1 g/dL (13.0-17.5) L Hematocrit 33.6 % (39.0-53.0) L Mean Corpuscular Volume 92 fL (79-100) Mean Corpuscular Hemoglobin 31 pg (25-35) Mean Corpuscular Hemoglobin Concent 33 g/dL (31-37) Red Cell Distribution Width 14.5 % (11.5-14.5) Platelet Count 157 x10^3/uL (140-400) Neutrophils (%) (Auto) 59 % (31-73) Lymphocytes (%) (Auto) 25 % (24-48) Monocytes (%) (Auto) 10 % (0-9) H Eosinophils (%) (Auto) 6 % (0-3) H Basophils (%) (Auto) 1 % (0-3) Neutrophils # (Auto) 3.9 x10^3uL (1.8-7.7) Lymphocytes # (Auto) 1.6 x10^3/uL (1.0-4.8) Monocytes # (Auto) 0.6 x10^3/uL (0.0-1.1) Eosinophils # (Auto) 0.4 x10^3/uL (0.0-0.7) Basophils # (Auto) 0.0 x10^3/uL (0.0-0.2) Sodium Level 143 mmol/L (136-145) Potassium Level 3.6 mmol/L (3.5-5.1) Chloride Level 105 mmol/L (98-107) Carbon Dioxide Level 28 mmol/L (21-32) Anion Gap 10 (6-14) Blood Urea Nitrogen 13 mg/dL (8-26) Creatinine 0.8 mg/dL (0.7-1.3) Estimated GFR (Cockcroft-Gault) 91.0 BUN/Creatinine Ratio 16 (6-20) Glucose Level 92 mg/dL (70-99) Calcium Level 9.2 mg/dL (8.5-10.1) Total Bilirubin 0.5 mg/dL (0.2-1.0) Aspartate Amino Transferase (AST) 18 U/L (15-37) Alanine Aminotransferase (ALT) 25 U/L (16-63) Alkaline Phosphatase 59 U/L (46-116) Total Protein 6.8 g/dL (6.4-8.2) Albumin 3.4 g/dL (3.4-5.0) Albumin/Globulin Ratio 1.0 (1.0-1.7) Valproic Acid Level 17 mcg/mL (50-100) L Valproic Acid Last Dose Date 08/15/2018 Valproic Acid Last Dose Time 2100 Glucose (Fingerstick) 99 mg/dL (70-99) Urine Collection Type Unknown Urine Color Angelita Urine Clarity Hazy Urine pH 6.5 Urine Specific [place] 1.015 Urine Protein Neg (NEG-TRACE) Urine Glucose (UA) Neg mg/dL (NEG) Urine Ketones (Stick) Neg mg/dL (NEG) Urine Blood Neg (NEG) Urine Nitrite Neg (NEG) Urine Bilirubin Neg (NEG) Urine Urobilinogen Dipstick 4 mg/dL (0.2 mg/dL) Urine Leukocyte Esterase Neg (NEG) Urine RBC 0 /HPF (0-2) Urine WBC 0 /HPF (0-4) Urine Squamous Epithelial Cells Occ /LPF Urine Bacteria 0 /HPF (0-FEW) Current Medications: Meds: Current Medications Medications (Trade) Dose Ordered Sig/Clint Route PRN Reason Start Time Stop Time Status Last Admin Dose Admin Sertraline HCl (Zoloft) 100 mg DAILY PO 08/16/18 09:00 08/16/18 07:54 I have reviewed the current psychotropics carefully including drug interactions. Risk benefit ratio favors no change other than as noted in my dictated progress note. Diagnosis: Problems: (1) Anxiety disorder (2) Dementia, vascular, with depression (3) Dementia, vascular, with delusions (4) Dementia in Alzheimer's disease with depression (5) Dementia in Alzheimer's disease with delusions (6) Impulse control disorder SON POLO MD Aug 16, 2018 22:16
--- NOTE | 2018-08-17 00:46 | PN ---
DATE: 08/15/2018 This is a late entry 08/15/2018 covers elements not covered in my initial note. SUBJECTIVE: I met with the patient in the evening at length in his room. The patient slept 8-1/2 hours previous night. He remains confused, but more redirectable, compliant with his medications. REVIEW OF SYSTEMS: Ambulation impaired with walker. No CV, , pulmonary, eye, ENT system symptoms on review. Reliability poor. MENTAL STATUS EXAM: Oriented to himself. Insight, judgment, recent and remote memory, attention, concentration, fund of knowledge poor, consistent with his diagnosis mentioned in my initial note. PLAN: No change from initial note. MAN Shelbie POLO MD DR: CARL/efra JOB#: [id number] / [id number]
[2018-08-17] MEDS: LEVOTHYROXINE 175 MCG TABLET PO SCH (05:42)
[2018-08-17 06:10] VITALS: BP 102/63
[2018-08-17] MEDS: GLIMEPIRIDE 2 MG TABLET PO SCH (07:45)
[2018-08-17] MEDS: SERTRALINE 100 MG TABLET. PO SCH (07:45)
[2018-08-17] MEDS: metFORMIN 500 MG TABLET PO SCH ×3 (07:46→17:40)
[2018-08-17] MEDS: CHOLECALCIFEROL (VITAMIN D3) 1,000 UNIT TABLET PO SCH (07:46)
[2018-08-17] MEDS: ASPIRIN ENTERIC COATED 81 MG TABLET.DR. PO SCH (07:46)
[2018-08-17] MEDS: DONEPEZIL HCL 10 MG TABLET PO SCH (07:46)
[2018-08-17] MEDS: DORZOLAMIDE 2% OPHTH SOLUTION 10ML BOTTLE. OU SCH ×2 (07:53→21:35)
[2018-08-17] MEDS: prednisoLONE ACETATE 1% OPHTH SUSPENSION 5ML BOTTLE. OS SCH ×2 (07:53→21:35)
[2018-08-17 16:37] VITALS: BP 117/68
[2018-08-17] MEDS: DIVALPROEX 125 MG CAP.SPRINK PO SCH (19:42)
[2018-08-17] MEDS: MIRTAZAPINE 7.5 MG TABLET. PO SCH (19:42)
[2018-08-17] MEDS: SIMVASTATIN 20 MG TABLET PO SCH (19:42)
--- NOTE | 2018-08-17 22:42 | PDOC ---
Exam Note: Sid Note: Please also refer to the separate dictated note~for this date of service dictated separately.~Patient seen individually. Discussed the patient with Nursing staff reviewed the chart.~Reviewed interim history and current functioning. Reviewed vital signs,~Labs/ Radiology~and current medications noted below. Continue current treatment with the changes noted in the dictated addendum note Assessment: Vital Signs/I&O: Vital Signs Date Time Temp Pulse Resp B/P (MAP) Pulse Ox O2 Delivery O2 Flow Rate FiO2 08/17/18 16:37 98.3 103 16 117/68 (84) 96 08/16/18 06:11 Room Air I & O 08/16/18 08/16/18 08/17/18 14:59 22:59 06:59 Intake Total 720 ml 240 ml 240 ml Balance 720 ml 240 ml 240 ml Labs: Laboratory Tests Test 08/17/18 07:16 Glucose (Fingerstick) 106 mg/dL (70-99) H Current Medications: Meds: Current Medications Medications (Trade) Dose Ordered Sig/Clint Route PRN Reason Start Time Stop Time Status Last Admin Dose Admin Divalproex Sodium (Depakote Sprinkles) 250 mg BID PO 08/17/18 21:00 08/17/18 19:42 I have reviewed the current psychotropics carefully including drug interactions. Risk benefit ratio favors no change other than as noted in my dictated progress note. Diagnosis: Problems: (1) Anxiety disorder (2) Dementia, vascular, with depression (3) Dementia, vascular, with delusions (4) Dementia in Alzheimer's disease with depression (5) Dementia in Alzheimer's disease with delusions (6) Impulse control disorder SON POLO MD Aug 17, 2018 22:42
[2018-08-18] MEDS: LEVOTHYROXINE 175 MCG TABLET PO SCH (05:30)
[2018-08-18 06:10] VITALS: BP 126/66
[2018-08-18] MEDS: DONEPEZIL HCL 10 MG TABLET PO SCH (08:09)
[2018-08-18] MEDS: ASPIRIN ENTERIC COATED 81 MG TABLET.DR. PO SCH (08:09)
[2018-08-18] MEDS: GLIMEPIRIDE 2 MG TABLET PO SCH (08:09)
[2018-08-18] MEDS: metFORMIN 500 MG TABLET PO SCH ×2 (08:09→17:00)
[2018-08-18] MEDS: SERTRALINE 100 MG TABLET. PO SCH (08:09)
[2018-08-18] MEDS: DIVALPROEX 125 MG CAP.SPRINK PO SCH ×2 (08:09→19:30)
[2018-08-18] MEDS: prednisoLONE ACETATE 1% OPHTH SUSPENSION 5ML BOTTLE. OS SCH ×2 (08:10→21:00)
[2018-08-18] MEDS: DORZOLAMIDE 2% OPHTH SOLUTION 10ML BOTTLE. OU SCH ×2 (08:10→21:00)
[2018-08-18] MEDS: CHOLECALCIFEROL (VITAMIN D3) 1,000 UNIT TABLET PO SCH (08:10)
[2018-08-18 15:48] VITALS: BP 97/59
--- NOTE | 2018-08-18 17:11 | RAD ---
CT of the head without contrast, 08/18/2018: HISTORY: Mental status change There is moderate cerebral atrophy. There are moderate patchy lucencies in the deep white matter bilaterally compatible with chronic ischemic change. The ventricles are enlarged on a compensatory basis. There is no shift of the midline structures. There is no evidence of acute intracranial hemorrhage or mass effect. IMPRESSION: 1. Cerebral atrophy. 2. Moderate patchy bilateral deep white matter lucencies likely due to chronic ischemic change. 3. No acute intracranial abnormality is detected. Electronically signed by: Ej Poole MD (08/18/2018 5:08 PM) [facility]
[2018-08-18] MEDS: SIMVASTATIN 20 MG TABLET PO SCH (19:31)
[2018-08-18] MEDS: MIRTAZAPINE 7.5 MG TABLET. PO SCH (19:33)
--- NOTE | 2018-08-18 22:16 | PDOC ---
Exam Note: Sid Note: Please also refer to the separate dictated note~for this date of service dictated separately.~Patient seen individually. Discussed the patient with Nursing staff reviewed the chart.~Reviewed interim history and current functioning. Reviewed vital signs,~Labs/ Radiology~and current medications noted below. Continue current treatment with the changes noted in the dictated addendum note Assessment: Vital Signs/I&O: Vital Signs Date Time Temp Pulse Resp B/P (MAP) Pulse Ox O2 Delivery O2 Flow Rate FiO2 08/18/18 15:48 97.4 96 17 97/59 (72) 98 Room Air I & O 08/17/18 08/17/18 08/18/18 15:00 23:00 07:00 Intake Total 720 ml 120 ml Balance 720 ml 120 ml Labs: Laboratory Tests Test 08/18/18 07:32 Glucose (Fingerstick) 112 mg/dL (70-99) H Current Medications: I have reviewed the current psychotropics carefully including drug interactions. Risk benefit ratio favors no change other than as noted in my dictated progress note. Diagnosis: Problems: (1) Anxiety disorder (2) Dementia, vascular, with depression (3) Dementia, vascular, with delusions (4) Dementia in Alzheimer's disease with depression (5) Dementia in Alzheimer's disease with delusions (6) Impulse control disorder SON POLO MD Aug 18, 2018 22:16
--- NOTE | 2018-08-18 22:19 | PN ---
DATE: 08/16/2018 PSYCHIATRIC PROGRESS NOTE This is a late entry 08/16/2018 covers elements not covered in my initial note. SUBJECTIVE: I met with the patient in the evening. The patient slept 8-1/2 hours previous night, did well in the morning. By the evening, he was agitated, obsessed wanting to get his car into ride 2 blocks. Addressed this with him at length. REVIEW OF SYSTEMS: Ambulation impaired with walker. No CV, , pulmonary, eye, ENT system symptoms on review. Reliability poor. MENTAL STATUS EXAM: Oriented to himself. Insight, judgment, recent and remote memory, attention, concentration, fund of knowledge poor, consistent with his diagnosis. Valproic acid level was 17, subtherapeutic. LABORATORY DATA: Reviewed. IMPRESSION: Unchanged from initial note. PLAN: Continue psychotropics from initial note. Depakote has been increased to 50 mg at bedtime. Check labs level, may need to adjust for clinical response for his mood lability prior to his discharge. SON POLO MD DR: CARL/efra JOB#: [id number] / [id number]
--- NOTE | 2018-08-18 22:52 | PN ---
DATE: 08/17/2018 PSYCHIATRIC PROGRESS NOTE This late entry 08/17/2018 covers elements not covered in my initial note. SUBJECTIVE: I met with the patient in the evening and staffed at a treatment team meeting with the entire team in the morning. Appetite 75%, slept 7 hours, compliant with medications, wandering, confused. He accepts cares and assistance from male staff members better than females. Stool has been sent for culture per Dr. Mayo. REVIEW OF SYSTEMS: Ambulation impaired with walker. No CV, , pulmonary, eye, ENT system symptoms on review. MENTAL STATUS EXAM: Oriented to himself. Insight, judgment, recent and remote memory, attention, concentration, fund of knowledge poor, consistent with his diagnosis mentioned in my initial note. PLAN: Valproic acid level on the was 17 on Depakote 250 at bedtime, we will increase it to 250 mg b.i.d. Check CBC, CMP, valproic acid level in 3 days. Maintain Remeron 7.5 at bedtime, Zyprexa p.r.n., Zoloft 100 mg a day, Aricept 10 mg b.i.d. Adjust further as clinically indicated. SON POLO MD DR: CARL/efra JOB#: [id number] / [id number]
[2018-08-19] MEDS: LEVOTHYROXINE 175 MCG TABLET PO SCH (05:33)
[2018-08-19 06:08] VITALS: BP 119/55
[2018-08-19] MEDS: ASPIRIN ENTERIC COATED 81 MG TABLET.DR. PO SCH (08:24)
[2018-08-19] MEDS: DONEPEZIL HCL 10 MG TABLET PO SCH (08:24)
[2018-08-19] MEDS: GLIMEPIRIDE 2 MG TABLET PO SCH (08:25)
[2018-08-19] MEDS: SERTRALINE 100 MG TABLET. PO SCH (08:25)
[2018-08-19] MEDS: DIVALPROEX 125 MG CAP.SPRINK PO SCH ×2 (08:25→19:23)
[2018-08-19] MEDS: CHOLECALCIFEROL (VITAMIN D3) 1,000 UNIT TABLET PO SCH (08:26)
[2018-08-19] MEDS: metFORMIN 500 MG TABLET PO SCH ×2 (08:26→17:19)
[2018-08-19] MEDS: prednisoLONE ACETATE 1% OPHTH SUSPENSION 5ML BOTTLE. OS SCH ×2 (10:28→22:39)
[2018-08-19] MEDS: DORZOLAMIDE 2% OPHTH SOLUTION 10ML BOTTLE. OU SCH ×2 (10:29→22:39)
[2018-08-19 15:35] VITALS: BP 126/79
[2018-08-19] MEDS: SIMVASTATIN 20 MG TABLET PO SCH (19:23)
[2018-08-19] MEDS: MIRTAZAPINE 7.5 MG TABLET. PO SCH (19:23)
--- NOTE | 2018-08-19 19:56 | PN ---
DATE: 08/18/2018 PSYCHIATRIC PROGRESS NOTE This note covers elements not covered in my initial note 08/18/2018. SUBJECTIVE: I met with the patient evening of 08/18/2018. The patient slept 7-1/4 hours previous night. He was agitated at night, but during the day today, he has been better, valproic acid level 19. CT head shows microvascular changes, atrophy, ventricular dilatation which is compensatory due to the atrophy. I returned a call from the patient's daughters, Delta and Sergio, and had a conference call with both of them and Delta's . They had many questions about the patient's workup, diagnosis, medications, transition, placement options, discussed all at length. REVIEW OF SYSTEMS: Ambulation impaired with walker. No CV, , pulmonary, eye, ENT system symptoms on review. Reliability poor. I sat with the patient individually. MENTAL STATUS EXAM: Oriented to himself. Insight, judgment, recent and remote memory, attention, concentration, fund of knowledge poor consistent with his diagnosis mentioned in my initial note. IMPRESSION: Major neurocognitive disorder; Alzheimer; vascular with delusion; depression; behavioral disturbance; anxiety disorder, unspecified; impulse control disorder, unspecified. Rest unchanged. PLAN: We will not increase the Depakote despite a subtherapeutic level since this may impair his ambulation, make him a fall risk and behaviorally is doing better. We will continue Depakote 250 b.i.d., Remeron 7.5 mg at bedtime, Zoloft 100 mg a day, Aricept 10 mg a day. Adjust further as clinically indicated. MAN Shelbie POLO MD DR: CARL/efra JOB#: [id number] / [id number]
[2018-08-20 06:29] VITALS: BP 124/78
[2018-08-20] MEDS: LEVOTHYROXINE 175 MCG TABLET PO SCH (06:38)
[2018-08-20] MEDS: GLIMEPIRIDE 2 MG TABLET PO SCH (07:41)
[2018-08-20] MEDS: DONEPEZIL HCL 10 MG TABLET PO SCH (07:41)
[2018-08-20] MEDS: ASPIRIN ENTERIC COATED 81 MG TABLET.DR. PO SCH (07:42)
[2018-08-20] MEDS: CHOLECALCIFEROL (VITAMIN D3) 1,000 UNIT TABLET PO SCH (07:42)
[2018-08-20] MEDS: SERTRALINE 100 MG TABLET. PO SCH (07:42)
[2018-08-20] MEDS: metFORMIN 500 MG TABLET PO SCH ×2 (07:42→17:00)
[2018-08-20] MEDS: DIVALPROEX 125 MG CAP.SPRINK PO SCH ×2 (07:43→19:39)
[2018-08-20] MEDS: DORZOLAMIDE 2% OPHTH SOLUTION 10ML BOTTLE. OU SCH ×2 (07:43→21:00)
[2018-08-20] MEDS: prednisoLONE ACETATE 1% OPHTH SUSPENSION 5ML BOTTLE. OS SCH ×2 (07:43→21:00)
[2018-08-20 08:07] LABS: BASO # 0.1 x10^3/uL (0.0-0.2); BASO % 1 % (0-3); EOS # 0.4 x10^3/uL (0.0-0.7); EOS % 7 % (0-3); HEMATOCRIT 34.1 % (39.0-53.0); HEMOGLOBIN 10.9 g/dL (13.0-17.5); LYMPH # 1.3 x10^3/uL (1.0-4.8); LYMPH % 21 % (24-48); MEAN CORPUSCULAR HEMOGLOBIN 30 pg (25-35); MEAN CORPUSCULAR HGB CONC 32 g/dL (31-37); MEAN CORPUSCULAR VOLUME 95 fL (79-100); MONO # 0.6 x10^3/uL (0.0-1.1); MONO % 10 % (0-9); NEUT # 3.7 x10^3uL (1.8-7.7); NEUT % 61 % (31-73); PLATELET COUNT 158 x10^3/uL (140-400); RED BLOOD COUNT 3.59 x10^6/uL (4.30-5.70); RED CELL DISTRIBUTION WIDTH 14.8 % (11.5-14.5); WHITE BLOOD COUNT 6.1 x10^3/uL (4.0-11.0)
[2018-08-20 08:20] LABS: ALBUMIN 3.4 g/dL (3.4-5.0); ALK PHOS 63 U/L (46-116); ALT (SGPT) 26 U/L (16-63); ANION GAP 10 (6-14); AST (SGOT) 21 U/L (15-37); BLOOD UREA NITROGEN 15 mg/dL (8-26); BUN/CREATININE RATIO 25 (6-20); CALCIUM 9.4 mg/dL (8.5-10.1); CARBON DIOXIDE 25 mmol/L (21-32); CHLORIDE 108 mmol/L (98-107); CREATININE 0.6 mg/dL (0.7-1.3); GFR 126.9; GLUCOSE 95 mg/dL (70-99); POTASSIUM 3.9 mmol/L (3.5-5.1); SODIUM 143 mmol/L (136-145); TOTAL BILIRUBIN 0.4 mg/dL (0.2-1.0); TOTAL PROTEIN 6.8 g/dL (6.4-8.2)
[2018-08-20 08:21] LABS: VAL ACID 27 mcg/mL (50-100)
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
[2018-08-20 17:10] VITALS: BP 134/83
[2018-08-20] MEDS: MIRTAZAPINE 7.5 MG TABLET. PO SCH (19:39)
[2018-08-20] MEDS: SIMVASTATIN 20 MG TABLET PO SCH (19:39)
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
[2018-08-21] MEDS: LEVOTHYROXINE 175 MCG TABLET PO SCH (05:29)
[2018-08-21 06:21] VITALS: BP 100/60
[2018-08-21] MEDS: ASPIRIN ENTERIC COATED 81 MG TABLET.DR. PO SCH (08:29)
[2018-08-21] MEDS: DIVALPROEX 125 MG CAP.SPRINK PO SCH ×2 (08:29→20:39)
[2018-08-21] MEDS: CHOLECALCIFEROL (VITAMIN D3) 1,000 UNIT TABLET PO SCH (08:29)
[2018-08-21] MEDS: SERTRALINE 100 MG TABLET. PO SCH (08:30)
[2018-08-21] MEDS: DONEPEZIL HCL 10 MG TABLET PO SCH (08:30)
[2018-08-21] MEDS: metFORMIN 500 MG TABLET PO SCH ×2 (08:30→16:33)
[2018-08-21] MEDS: GLIMEPIRIDE 2 MG TABLET PO SCH (08:30)
[2018-08-21] MEDS: DORZOLAMIDE 2% OPHTH SOLUTION 10ML BOTTLE. OU SCH ×2 (09:24→20:52)
[2018-08-21] MEDS: prednisoLONE ACETATE 1% OPHTH SUSPENSION 5ML BOTTLE. OS SCH ×2 (09:24→20:52)
[2018-08-21 16:33] VITALS: BP 168/89
[2018-08-21] MEDS: MIRTAZAPINE 7.5 MG TABLET. PO SCH (20:39)
[2018-08-21] MEDS: SIMVASTATIN 20 MG TABLET PO SCH (20:40)
--- NOTE | 2018-08-22 00:01 | PN ---
DATE: 08/21/2018 SUBJECTIVE: The patient was seen today, met with the staff, and chart reviewed. The patient's fever continues to fluctuate. The patient is also hard of hearing. The patient get irritable and winters at times and also problems with impulse control. The patient is especially in the mornings very irritable, winters and also combative at times. OBSERVATION: VITAL SIGNS: Temperature 97.7, blood pressure 100/66, pulse 56, respiratory rate 20, O2 sat 92%. Slept about 8 hours last night. The patient's lab reviewed. CURRENT MEDICATIONS: Include Depakote 250 mg b.i.d., Zoloft 100 mg daily, mirtazapine 7.5 mg at night, Zyprexa 2.5 mg q. 2 hours p.r.n., Aricept 10 mg daily, trazadone 12.5 mg t.i.d. p.r.n. The patient denies any side effects. 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 I have asked to continue with the treatment. Length of stay 5 days. HAIR HATCH MD DR: ANNE/efra JOB#: [id number] / [id number]
[2018-08-22] MEDS: LEVOTHYROXINE 175 MCG TABLET PO SCH ×2 (05:24→06:00)
[2018-08-22 06:13] VITALS: BP 93/59
[2018-08-22] MEDS: metFORMIN 500 MG TABLET PO SCH ×2 (07:40→17:01)
[2018-08-22] MEDS: DONEPEZIL HCL 10 MG TABLET PO SCH (07:40)
[2018-08-22] MEDS: GLIMEPIRIDE 2 MG TABLET PO SCH (07:40)
[2018-08-22] MEDS: SERTRALINE 100 MG TABLET. PO SCH (07:40)
[2018-08-22] MEDS: prednisoLONE ACETATE 1% OPHTH SUSPENSION 5ML BOTTLE. OS SCH ×2 (07:40→20:26)
[2018-08-22] MEDS: ASPIRIN ENTERIC COATED 81 MG TABLET.DR. PO SCH (07:40)
[2018-08-22] MEDS: CHOLECALCIFEROL (VITAMIN D3) 1,000 UNIT TABLET PO SCH (07:40)
[2018-08-22] MEDS: DIVALPROEX 125 MG CAP.SPRINK PO SCH ×2 (07:40→20:25)
[2018-08-22] MEDS: DORZOLAMIDE 2% OPHTH SOLUTION 10ML BOTTLE. OU SCH ×2 (07:41→20:26)
[2018-08-22 16:18] VITALS: BP 122/75
[2018-08-22] MEDS: MIRTAZAPINE 7.5 MG TABLET. PO SCH (20:25)
[2018-08-22] MEDS: SIMVASTATIN 20 MG TABLET PO SCH (20:25)
--- NOTE | 2018-08-22 23:31 | PN ---
DATE: 08/22/2018 SUBJECTIVE: The patient was seen today, met with the staff, chart reviewed. The patient continues to show fluctuating behavior problems, increased anxiety, agitation at times. The patient is also hard of hearing. The patient continues to have mood swings, mostly irritable and winters overall, except in the morning. OBSERVATION: VITAL SIGNS: Stable. The patient slept about 8 hours last night. The patient's appetite is fair. The patient is not having any major medical issues. LABORATORY DATA: The patient's lab reviewed. MEDICATIONS: The patient's current medications include Depakote 250 mg b.i.d., Zoloft 100 mg daily, mirtazapine 7.5 mg at night, Zyprexa 2.5 mg q. 2 hours p.r.n., Aricept 10 mg daily, trazodone 12.5 mg t.i.d. p.r.n. ASSESSMENT: 1. 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 2. Generalized anxiety disorder. LENGTH OF STAY: 5 days. HAIR HATCH MD DR: ANNE/efra JOB#: [id number] / [id number]
[2018-08-23] MEDS: LEVOTHYROXINE 175 MCG TABLET PO SCH (06:08)
[2018-08-23 06:20] VITALS: BP 101/63
[2018-08-23] MEDS: DONEPEZIL HCL 10 MG TABLET PO SCH (08:15)
[2018-08-23] MEDS: CHOLECALCIFEROL (VITAMIN D3) 1,000 UNIT TABLET PO SCH (08:15)
[2018-08-23] MEDS: ASPIRIN ENTERIC COATED 81 MG TABLET.DR. PO SCH (08:15)
[2018-08-23] MEDS: SERTRALINE 100 MG TABLET. PO SCH (08:16)
[2018-08-23] MEDS: DORZOLAMIDE 2% OPHTH SOLUTION 10ML BOTTLE. OU SCH ×2 (08:16→20:11)
[2018-08-23] MEDS: metFORMIN 500 MG TABLET PO SCH ×2 (08:16→17:04)
[2018-08-23] MEDS: GLIMEPIRIDE 2 MG TABLET PO SCH (08:16)
[2018-08-23] MEDS: prednisoLONE ACETATE 1% OPHTH SUSPENSION 5ML BOTTLE. OS SCH ×2 (08:16→20:11)
[2018-08-23] MEDS: DIVALPROEX 125 MG CAP.SPRINK PO SCH ×2 (08:16→20:09)
[2018-08-23 15:54] VITALS: BP 109/70
[2018-08-23] MEDS: MIRTAZAPINE 7.5 MG TABLET. PO SCH (20:08)
[2018-08-23] MEDS: SIMVASTATIN 20 MG TABLET PO SCH (20:08)
--- NOTE | 2018-08-23 23:36 | PN ---
DATE: 08/23/2018 SUBJECTIVE: The patient was seen today, met with the staff, chart reviewed. Staff reports no major behavior problems today. The patient has been feeling tired and wants to stay in bed. The patient continues to have increased anxiety, periods of agitation, also having mood swings. OBSERVATION: VITAL SIGNS: Temperature 97.4, blood pressure 101/63, pulse 91, respirations 14, O2 sat 94%. Slept about 7 hours last night. CURRENT MEDICATIONS: The patient's current medications include Depakote 250 mg b.i.d., Zoloft 100 mg daily, mirtazapine 7.5 mg at night, Zyprexa 2.5 mg 2 hours p.r.n. The patient is also on Aricept 10 mg daily and trazodone 12.5 mg t.i.d. p.r.n. ASSESSMENT: 1. 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 2. Generalized anxiety disorder. LENGTH OF STAY: Five days. HAIR HATCH MD DR: ANNE/efra JOB#: [id number] / [id number]
[2018-08-24] MEDS: LEVOTHYROXINE 175 MCG TABLET PO SCH (05:35)
[2018-08-24 06:12] VITALS: BP 111/68
[2018-08-24] MEDS: GLIMEPIRIDE 2 MG TABLET PO SCH (08:05)
[2018-08-24] MEDS: DIVALPROEX 125 MG CAP.SPRINK PO SCH ×2 (08:05→20:19)
[2018-08-24] MEDS: SERTRALINE 100 MG TABLET. PO SCH (08:05)
[2018-08-24] MEDS: DONEPEZIL HCL 10 MG TABLET PO SCH (08:05)
[2018-08-24] MEDS: ASPIRIN ENTERIC COATED 81 MG TABLET.DR. PO SCH (08:05)
[2018-08-24] MEDS: CHOLECALCIFEROL (VITAMIN D3) 1,000 UNIT TABLET PO SCH (08:05)
[2018-08-24] MEDS: metFORMIN 500 MG TABLET PO SCH ×2 (08:05→17:16)
[2018-08-24] MEDS: prednisoLONE ACETATE 1% OPHTH SUSPENSION 5ML BOTTLE. OS SCH ×2 (08:06→20:20)
[2018-08-24] MEDS: DORZOLAMIDE 2% OPHTH SOLUTION 10ML BOTTLE. OU SCH ×2 (08:08→20:20)
[2018-08-24 16:01] VITALS: BP 103/65
[2018-08-24] MEDS: MIRTAZAPINE 7.5 MG TABLET. PO SCH (20:19)
[2018-08-24] MEDS: SIMVASTATIN 20 MG TABLET PO SCH (20:19)
--- NOTE | 2018-08-25 00:24 | PN ---
DATE: 08/24/2018 SUBJECTIVE: The patient was seen today, met with the staff, chart reviewed. The patient is still confused, stays in bed, withdrawn, apparently in the past 2 to 3 days he became increasingly withdrawn, wanting to spend more time in bed. The patient is also exhibiting some psychomotor retardation. OBSERVATION: VITAL SIGNS: Temperature 97.6, blood pressure 111/68, pulse 77, respirations 20, O2 sat 97%. GENERAL: Slept about 7 hours last night. The patient's appetite is fair. MEDICATIONS: The patient's current medications include Depakote 250 mg b.i.d., Zoloft 100 mg daily, mirtazapine 7.5 mg at night, Zyprexa 2.5 mg q.2 hours p.r.n. The patient is also on Aricept 10 mg daily and trazodone 12.5 mg t.i.d. p.r.n. ASSESSMENT: 1. 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 2. Generalized anxiety disorder. PLAN: Continue with the current medications. Continue to observe for any side effects. LENGTH OF STAY: 5 days. HAIR HATCH MD DR: ANNE/efra JOB#: [id number] / [id number]
[2018-08-25] MEDS: LEVOTHYROXINE 175 MCG TABLET PO SCH (05:53)
[2018-08-25 06:23] VITALS: BP 114/70
[2018-08-25] MEDS: metFORMIN 500 MG TABLET PO SCH ×2 (08:09→17:37)
[2018-08-25] MEDS: DIVALPROEX 125 MG CAP.SPRINK PO SCH ×2 (08:09→19:28)
[2018-08-25] MEDS: DORZOLAMIDE 2% OPHTH SOLUTION 10ML BOTTLE. OU SCH ×2 (08:10→19:28)
[2018-08-25] MEDS: SERTRALINE 100 MG TABLET. PO SCH (08:10)
[2018-08-25] MEDS: GLIMEPIRIDE 2 MG TABLET PO SCH (08:10)
[2018-08-25] MEDS: CHOLECALCIFEROL (VITAMIN D3) 1,000 UNIT TABLET PO SCH (08:10)
[2018-08-25] MEDS: prednisoLONE ACETATE 1% OPHTH SUSPENSION 5ML BOTTLE. OS SCH ×2 (08:10→19:28)
[2018-08-25] MEDS: ASPIRIN ENTERIC COATED 81 MG TABLET.DR. PO SCH (08:10)
[2018-08-25] MEDS: DONEPEZIL HCL 10 MG TABLET PO SCH (08:10)
[2018-08-25 16:03] VITALS: BP 94/60
[2018-08-25] MEDS: MIRTAZAPINE 7.5 MG TABLET. PO SCH (19:28)
[2018-08-25] MEDS: SIMVASTATIN 20 MG TABLET PO SCH (19:28)
--- NOTE | 2018-08-25 23:10 | PN ---
DATE: 08/25/2018 SUBJECTIVE: The patient was seen today, met with the staff, chart reviewed. The patient's behavior remains the same, confusion, periods of agitation, tend to wanders, intrusive and also misidentification of people. OBSERVATION: VITAL SIGNS: Temperature 97.8, blood pressure 114/70, pulse 64, respirations 16, O2 sat 95%. Slept about 8 hours last night. The patient's appetite improved. MEDICATIONS: The patient's current medications include Depakote 250 mg b.i.d., Zoloft 100 mg daily, mirtazapine 7.5 mg at night and Zyprexa 2.5 mg q. 2 hours p.r.n. The patient is also Aricept 10 mg daily. The patient is also on trazodone 12.5 mg t.i.d. p.r.n. ASSESSMENT: 1. 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 2. Generalized anxiety disorder. PLAN: To continue with the treatment. LENGTH OF STAY: 4 days. HAIR HATCH MD DR: ANNE/efra JOB#: [id number] / [id number]
[2018-08-26] MEDS: LEVOTHYROXINE 175 MCG TABLET PO SCH (06:00)
[2018-08-26 06:23] VITALS: BP 100/62
[2018-08-26] MEDS: DORZOLAMIDE 2% OPHTH SOLUTION 10ML BOTTLE. OU SCH ×2 (08:17→19:27)
[2018-08-26] MEDS: metFORMIN 500 MG TABLET PO SCH ×2 (08:17→16:57)
[2018-08-26] MEDS: GLIMEPIRIDE 2 MG TABLET PO SCH (08:17)
[2018-08-26] MEDS: ASPIRIN ENTERIC COATED 81 MG TABLET.DR. PO SCH (08:17)
[2018-08-26] MEDS: DONEPEZIL HCL 10 MG TABLET PO SCH (08:17)
[2018-08-26] MEDS: prednisoLONE ACETATE 1% OPHTH SUSPENSION 5ML BOTTLE. OS SCH ×2 (08:17→19:27)
[2018-08-26] MEDS: CHOLECALCIFEROL (VITAMIN D3) 1,000 UNIT TABLET PO SCH (08:18)
[2018-08-26] MEDS: DIVALPROEX 125 MG CAP.SPRINK PO SCH ×2 (08:18→19:25)
[2018-08-26 08:23] LABS: BASO % 0 % (0-3); EOS # 0.4 x10^3/uL (0.0-0.7); EOS % 6 % (0-3); HEMATOCRIT 34.8 % (39.0-53.0); HEMOGLOBIN 11.3 g/dL (13.0-17.5); LYMPH # 1.3 x10^3/uL (1.0-4.8); LYMPH % 19 % (24-48); MEAN CORPUSCULAR HEMOGLOBIN 30 pg (25-35); MEAN CORPUSCULAR HGB CONC 33 g/dL (31-37); MEAN CORPUSCULAR VOLUME 92 fL (79-100); MONO # 0.8 x10^3/uL (0.0-1.1); MONO % 12 % (0-9); NEUT # 4.5 x10^3uL (1.8-7.7); NEUT % 64 % (31-73); PLATELET COUNT 179 x10^3/uL (140-400); WHITE BLOOD COUNT 7.1 x10^3/uL (4.0-11.0)
[2018-08-26] MEDS: methylPREDNISolone 4 MG TABLET. PO SCH ×4 (08:23→19:26)
[2018-08-26] MEDS: CETIRIZINE HCL 10 MG TABLET PO SCH (08:24)
[2018-08-26] MEDS: SERTRALINE 50 MG TABLET. PO SCH (08:24)
[2018-08-26 08:33] LABS: ALBUMIN 3.6 g/dL (3.4-5.0); CALCIUM 9.4 mg/dL (8.5-10.1); CREATININE 0.8 mg/dL (0.7-1.3); POTASSIUM 3.8 mmol/L (3.5-5.1); TOTAL BILIRUBIN 0.3 mg/dL (0.2-1.0); TOTAL PROTEIN 7.1 g/dL (6.4-8.2)
[2018-08-26 15:50] VITALS: BP 127/78
[2018-08-26] MEDS: MIRTAZAPINE 7.5 MG TABLET. PO SCH (19:26)
[2018-08-26] MEDS: SIMVASTATIN 20 MG TABLET PO SCH (19:26)
--- NOTE | 2018-08-26 22:04 | PDOC ---
Exam Note: Sid Note: Please also refer to the separate dictated note~for this date of service dictated separately.~Patient seen individually. Discussed the patient with Nursing staff reviewed the chart.~Reviewed interim history and current functioning. Reviewed vital signs,~Labs/ Radiology~and current medications noted below. Continue current treatment with the changes noted in the dictated addendum note Assessment: Vital Signs/I&O: Vital Signs Date Time Temp Pulse Resp B/P (MAP) Pulse Ox O2 Delivery O2 Flow Rate FiO2 08/26/18 15:50 98.5 94 18 127/78 (94) 96 Room Air I & O 08/25/18 08/25/18 08/26/18 15:00 23:00 07:00 Intake Total 360 ml 240 ml 120 ml Balance 360 ml 240 ml 120 ml Labs: Laboratory Tests Test 08/26/18 07:09 08/26/18 07:56 Glucose (Fingerstick) 104 mg/dL (70-99) H White Blood Count 7.1 x10^3/uL (4.0-11.0) Red Blood Count 3.80 x10^6/uL (4.30-5.70) L Hemoglobin 11.3 g/dL (13.0-17.5) L Hematocrit 34.8 % (39.0-53.0) L Mean Corpuscular Volume 92 fL (79-100) Mean Corpuscular Hemoglobin 30 pg (25-35) Mean Corpuscular Hemoglobin Concent 33 g/dL (31-37) Red Cell Distribution Width 14.0 % (11.5-14.5) Platelet Count 179 x10^3/uL (140-400) Neutrophils (%) (Auto) 64 % (31-73) Lymphocytes (%) (Auto) 19 % (24-48) L Monocytes (%) (Auto) 12 % (0-9) H Eosinophils (%) (Auto) 6 % (0-3) H Basophils (%) (Auto) 0 % (0-3) Neutrophils # (Auto) 4.5 x10^3uL (1.8-7.7) Lymphocytes # (Auto) 1.3 x10^3/uL (1.0-4.8) Monocytes # (Auto) 0.8 x10^3/uL (0.0-1.1) Eosinophils # (Auto) 0.4 x10^3/uL (0.0-0.7) Basophils # (Auto) 0.0 x10^3/uL (0.0-0.2) Sodium Level 142 mmol/L (136-145) Potassium Level 3.8 mmol/L (3.5-5.1) Chloride Level 104 mmol/L (98-107) Carbon Dioxide Level 27 mmol/L (21-32) Anion Gap 11 (6-14) Blood Urea Nitrogen 19 mg/dL (8-26) Creatinine 0.8 mg/dL (0.7-1.3) Estimated GFR (Cockcroft-Gault) 91.0 BUN/Creatinine Ratio 24 (6-20) H Glucose Level 109 mg/dL (70-99) H Calcium Level 9.4 mg/dL (8.5-10.1) Total Bilirubin 0.3 mg/dL (0.2-1.0) Aspartate Amino Transferase (AST) 24 U/L (15-37) Alanine Aminotransferase (ALT) 39 U/L (16-63) Alkaline Phosphatase 66 U/L (46-116) Total Protein 7.1 g/dL (6.4-8.2) Albumin 3.6 g/dL (3.4-5.0) Albumin/Globulin Ratio 1.0 (1.0-1.7) Current Medications: Meds: Current Medications Medications (Trade) Dose Ordered Sig/Clint Route PRN Reason Start Time Stop Time Status Last Admin Dose Admin Sertraline HCl (Zoloft) 75 mg DAILY PO 08/26/18 09:00 08/26/18 08:24 Cetirizine HCl (ZyrTEC) 10 mg DAILY PO 08/26/18 09:00 08/26/18 08:24 Methylprednisolone (Medrol) 8 mg BID PO 08/26/18 09:00 08/26/18 21:01 DC 08/26/18 19:26 Methylprednisolone (Medrol) 4 mg BIDPCLD PO 08/26/18 12:30 08/26/18 17:31 DC 08/26/18 16:57 I have reviewed the current psychotropics carefully including drug interactions. Risk benefit ratio favors no change other than as noted in my dictated progress note. Diagnosis: Problems: (1) Anxiety disorder (2) Dementia, vascular, with depression (3) Dementia, vascular, with delusions (4) Dementia in Alzheimer's disease with depression (5) Dementia in Alzheimer's disease with delusions (6) Impulse control disorder SON POLO MD Aug 26, 2018 22:04
[2018-08-27] MEDS: LEVOTHYROXINE 175 MCG TABLET PO SCH (05:27)
[2018-08-27 06:22] VITALS: BP 102/63
[2018-08-27] MEDS: ASPIRIN ENTERIC COATED 81 MG TABLET.DR. PO SCH (08:10)
[2018-08-27] MEDS: metFORMIN 500 MG TABLET PO SCH ×2 (08:10→17:25)
[2018-08-27] MEDS: prednisoLONE ACETATE 1% OPHTH SUSPENSION 5ML BOTTLE. OS SCH ×2 (08:11→19:37)
[2018-08-27] MEDS: methylPREDNISolone 4 MG TABLET. PO SCH ×3 (08:11→17:25)
[2018-08-27] MEDS: SERTRALINE 50 MG TABLET. PO SCH (08:12)
[2018-08-27] MEDS: DONEPEZIL HCL 10 MG TABLET PO SCH (08:12)
[2018-08-27] MEDS: DORZOLAMIDE 2% OPHTH SOLUTION 10ML BOTTLE. OU SCH ×2 (08:12→19:37)
[2018-08-27] MEDS: DIVALPROEX 125 MG CAP.SPRINK PO SCH ×3 (08:12→20:38)
[2018-08-27] MEDS: CHOLECALCIFEROL (VITAMIN D3) 1,000 UNIT TABLET PO SCH (08:12)
[2018-08-27] MEDS: GLIMEPIRIDE 2 MG TABLET PO SCH (08:12)
[2018-08-27] MEDS: CETIRIZINE HCL 10 MG TABLET PO SCH (08:13)
[2018-08-27] MEDS: hydrOXYzine HCL 25 MG TABLET PO PRN ×2 (15:31→21:21)
[2018-08-27 16:52] VITALS: BP 115/78
[2018-08-27] MEDS: SIMVASTATIN 20 MG TABLET PO SCH (19:20)
[2018-08-27] MEDS: MIRTAZAPINE 7.5 MG TABLET. PO SCH (19:20)
[2018-08-27] MEDS ORDERED: methylPREDNISolone 4 MG TABLET. PO SCH (21:00)
[2018-08-27] MEDS: traZODone 50 MG TABLET. PO PRN (21:21)
--- NOTE | 2018-08-27 22:45 | PDOC ---
Exam Note: Sid Note: Please also refer to the separate dictated note~for this date of service dictated separately.~Patient seen individually. Discussed the patient with Nursing staff reviewed the chart.~Reviewed interim history and current functioning. Reviewed vital signs,~Labs/ Radiology~and current medications noted below. Continue current treatment with the changes noted in the dictated addendum note Assessment: Vital Signs/I&O: Vital Signs Date Time Temp Pulse Resp B/P (MAP) Pulse Ox O2 Delivery O2 Flow Rate FiO2 08/27/18 16:52 97.7 81 18 115/78 (90) 96 08/26/18 15:50 Room Air I & O 08/26/18 08/26/18 08/27/18 14:59 22:59 06:59 Intake Total 360 ml 240 ml 120 ml Balance 360 ml 240 ml 120 ml Labs: Laboratory Tests Test 08/27/18 07:22 Glucose (Fingerstick) 129 mg/dL (70-99) H Current Medications: Meds: Current Medications Medications (Trade) Dose Ordered Sig/Clint Route PRN Reason Start Time Stop Time Status Last Admin Dose Admin Methylprednisolone (Medrol) 4 mg TIDPC PO 08/27/18 08:30 08/27/18 17:31 DC 08/27/18 17:25 Methylprednisolone (Medrol) 8 mg QHS PO 08/27/18 21:00 08/27/18 21:01 DC 08/27/18 19:22 Hydroxyzine HCl (Atarax) 25 mg PRN Q2HR PRN PO ITCHING 08/27/18 15:30 08/27/18 21:21 I have reviewed the current psychotropics carefully including drug interactions. Risk benefit ratio favors no change other than as noted in my dictated progress note. Diagnosis: Problems: (1) Anxiety disorder (2) Dementia, vascular, with depression (3) Dementia, vascular, with delusions (4) Dementia in Alzheimer's disease with depression (5) Dementia in Alzheimer's disease with delusions (6) Impulse control disorder SON POLO MD Aug 27, 2018 22:45
[2018-08-28 06:09] VITALS: BP 122/64
[2018-08-28] MEDS: LEVOTHYROXINE 175 MCG TABLET PO SCH (06:09)
[2018-08-28] MEDS: ASPIRIN ENTERIC COATED 81 MG TABLET.DR. PO SCH (08:12)
[2018-08-28] MEDS: metFORMIN 500 MG TABLET PO SCH ×2 (08:12→17:04)
[2018-08-28] MEDS: prednisoLONE ACETATE 1% OPHTH SUSPENSION 5ML BOTTLE. OS SCH ×2 (08:12→23:02)
[2018-08-28] MEDS: DONEPEZIL HCL 10 MG TABLET PO SCH (08:13)
[2018-08-28] MEDS: DORZOLAMIDE 2% OPHTH SOLUTION 10ML BOTTLE. OU SCH ×2 (08:13→23:02)
[2018-08-28] MEDS: DIVALPROEX 125 MG CAP.SPRINK PO SCH ×2 (08:13→19:31)
[2018-08-28] MEDS: methylPREDNISolone 4 MG TABLET. PO SCH ×4 (08:13→19:34)
[2018-08-28] MEDS: GLIMEPIRIDE 2 MG TABLET PO SCH (08:13)
[2018-08-28] MEDS: SERTRALINE 50 MG TABLET. PO SCH (08:14)
[2018-08-28] MEDS: CHOLECALCIFEROL (VITAMIN D3) 1,000 UNIT TABLET PO SCH (08:14)
[2018-08-28] MEDS: CETIRIZINE HCL 10 MG TABLET PO SCH (08:15)
[2018-08-28] MEDS: hydrOXYzine HCL 25 MG TABLET PO PRN ×2 (10:40→17:04)
[2018-08-28 16:39] VITALS: BP 110/70
[2018-08-28] MEDS: MIRTAZAPINE 7.5 MG TABLET. PO SCH (19:31)
[2018-08-28] MEDS: SIMVASTATIN 20 MG TABLET PO SCH (19:31)
[2018-08-28] MEDS: traZODone 50 MG TABLET. PO PRN (19:35)
--- NOTE | 2018-08-28 22:46 | PDOC ---
Exam Note: Sid Note: Please also refer to the separate dictated note~for this date of service dictated separately.~Patient seen individually. Discussed the patient with Nursing staff reviewed the chart.~Reviewed interim history and current functioning. Reviewed vital signs,~Labs/ Radiology~and current medications noted below. Continue current treatment with the changes noted in the dictated addendum note Assessment: Vital Signs/I&O: Vital Signs Date Time Temp Pulse Resp B/P (MAP) Pulse Ox O2 Delivery O2 Flow Rate FiO2 08/28/18 16:39 98.0 93 20 110/70 (83) 98 08/26/18 15:50 Room Air I & O 08/27/18 08/27/18 08/28/18 15:00 23:00 07:00 Intake Total 240 ml 240 ml Balance 240 ml 240 ml Labs: Laboratory Tests Test 08/28/18 07:16 Glucose (Fingerstick) 99 mg/dL (70-99) Current Medications: Meds: Current Medications Medications (Trade) Dose Ordered Sig/Clint Route PRN Reason Start Time Stop Time Status Last Admin Dose Admin Methylprednisolone (Medrol) 4 mg QIDAFTMEAL PO 08/28/18 09:00 08/28/18 21:01 DC 08/28/18 19:34 I have reviewed the current psychotropics carefully including drug interactions. Risk benefit ratio favors no change other than as noted in my dictated progress note. Diagnosis: Problems: (1) Anxiety disorder (2) Dementia, vascular, with depression (3) Dementia, vascular, with delusions (4) Dementia in Alzheimer's disease with depression (5) Dementia in Alzheimer's disease with delusions (6) Impulse control disorder SON POLO MD Aug 28, 2018 22:46
--- NOTE | 2018-08-29 00:17 | PN ---
DATE: 08/26/2018 PSYCHIATRIC PROGRESS NOTE This late entry 08/26/2018 covers elements not covered in my initial note. SUBJECTIVE: I met with the patient in the evening. The patient was quite resistive with his medications previous night. Staff had called me with initiated Zyprexa p.r.n. He was "making out" with Tisha per nursing report, difficult to redirect at times, delusional. REVIEW OF SYSTEMS: Ambulation impaired with walker. No CV, , pulmonary, eye, ENT system symptoms on review. Reviewed interim information with Dr. Reese, who covered for me over the past 1 week. MENTAL STATUS EXAM: Oriented to himself. Insight, judgment, recent and remote memory, attention, concentration, fund of knowledge poor, consistent with his diagnosis mentioned in my initial note. PLAN: Start Zyprexa p.r.n. Continue rest unchanged, may need to adjust Depakote to reach therapeutic level since current level is 27 on 250 b.i.d. We will see how his behaviors progress before deciding this since increase of dosage may cause impaired ambulation. MAN Shelbie POLO MD DR: CARL/efra JOB#: [id number] / [id number]
--- NOTE | 2018-08-29 02:40 | PN ---
DATE: 08/27/2018 PSYCHIATRIC PROGRESS NOTE This is a late entry 08/27/2018, covers the elements not covered in my initial note. SUBJECTIVE: I met with the patient in the evening. The patient slept 7 hours previous night. He has had a very difficult day. He has been agitated, received Zyprexa at 9:30 a.m. 1400 hours, Atarax at 1530 hours and at bedtime. He has been aggressive, delusional, hyperverbal, difficult to redirect. REVIEW OF SYSTEMS: Ambulation impaired with walker. No CV, , pulmonary, eye, ENT system symptoms on review. Reliability poor. MENTAL STATUS EXAM: Oriented to himself. Insight, judgment, recent and remote memory, attention, concentration, fund of knowledge poor, consistent with his diagnosis. IMPRESSION: Major neurocognitive disorder, Alzheimer, vascular with delusion, depression, behavioral disturbance; anxiety disorder, unspecified; impulse control disorder, unspecified. PLAN: Valproic acid level subtherapeutic at 27 on Depakote 250 b.i.d. We will increase to 375 b.i.d. Check CBC, CMP, valproic acid level in 3 days. Continue rest of the psychotropics mentioned in my initial note. OCD symptoms are prominent we may change Zoloft to Luvox. MAN Shelbie POLO MD DR: CARL/efra JOB#: [id number] / [id number]
[2018-08-29] MEDS: LEVOTHYROXINE 175 MCG TABLET PO SCH (05:07)
[2018-08-29 06:14] VITALS: BP 105/66
[2018-08-29] MEDS: DONEPEZIL HCL 10 MG TABLET PO SCH (08:57)
[2018-08-29] MEDS: GLIMEPIRIDE 2 MG TABLET PO SCH (08:57)
[2018-08-29] MEDS: DIVALPROEX 125 MG CAP.SPRINK PO SCH ×2 (08:57→20:02)
[2018-08-29] MEDS: CETIRIZINE HCL 10 MG TABLET PO SCH (08:57)
[2018-08-29] MEDS: ASPIRIN ENTERIC COATED 81 MG TABLET.DR. PO SCH (08:57)
[2018-08-29] MEDS: CHOLECALCIFEROL (VITAMIN D3) 1,000 UNIT TABLET PO SCH (08:58)
[2018-08-29] MEDS: metFORMIN 500 MG TABLET PO SCH ×2 (08:58→17:36)
[2018-08-29] MEDS: prednisoLONE ACETATE 1% OPHTH SUSPENSION 5ML BOTTLE. OS SCH ×2 (09:12→20:04)
[2018-08-29] MEDS: DORZOLAMIDE 2% OPHTH SOLUTION 10ML BOTTLE. OU SCH ×2 (09:12→20:02)
[2018-08-29] MEDS: methylPREDNISolone 4 MG TABLET. PO SCH ×3 (09:13→20:02)
[2018-08-29] MEDS: hydrOXYzine HCL 25 MG TABLET PO PRN (10:40)
[2018-08-29] MEDS: traZODone 50 MG TABLET. PO PRN (10:40)
[2018-08-29 16:16] VITALS: BP 135/74
[2018-08-29] MEDS: MIRTAZAPINE 7.5 MG TABLET. PO SCH (20:02)
[2018-08-29] MEDS: SIMVASTATIN 20 MG TABLET PO SCH (20:02)
--- NOTE | 2018-08-29 22:42 | PDOC ---
Exam Note: Sid Note: Please also refer to the separate dictated note~for this date of service dictated separately.~Patient seen individually. Discussed the patient with Nursing staff reviewed the chart.~Reviewed interim history and current functioning. Reviewed vital signs,~Labs/ Radiology~and current medications noted below. Continue current treatment with the changes noted in the dictated addendum note Assessment: Vital Signs/I&O: Vital Signs Date Time Temp Pulse Resp B/P (MAP) Pulse Ox O2 Delivery O2 Flow Rate FiO2 08/29/18 16:16 98.4 101 16 135/74 (94) 98 Room Air I & O 08/28/18 08/28/18 08/29/18 14:59 22:59 06:59 Intake Total 480 ml 240 ml Balance 480 ml 240 ml Labs: Laboratory Tests Test 08/29/18 07:42 08/29/18 08:21 Glucose (Fingerstick) 68 mg/dL (70-99) L 89 mg/dL (70-99) Current Medications: Meds: Current Medications Medications (Trade) Dose Ordered Sig/Clint Route PRN Reason Start Time Stop Time Status Last Admin Dose Admin Methylprednisolone (Medrol) 4 mg TID PO 08/29/18 09:00 08/29/18 21:01 DC 08/29/18 20:02 Fluvoxamine Maleate (Luvox) 25 mg DAILY PO 08/29/18 09:00 08/30/18 11:00 08/29/18 09:11 I have reviewed the current psychotropics carefully including drug interactions. Risk benefit ratio favors no change other than as noted in my dictated progress note. Diagnosis: Problems: (1) Anxiety disorder (2) Dementia, vascular, with depression (3) Dementia, vascular, with delusions (4) Dementia in Alzheimer's disease with depression (5) Dementia in Alzheimer's disease with delusions (6) Impulse control disorder SON POLO MD Aug 29, 2018 22:42
[2018-08-30] MEDS: LEVOTHYROXINE 175 MCG TABLET PO SCH (05:39)
[2018-08-30 06:18] VITALS: BP 126/78
[2018-08-30 06:50] LABS: BASO % 1 % (0-3); EOS # 0.1 x10^3/uL (0.0-0.7); EOS % 1 % (0-3); HEMATOCRIT 34.6 % (39.0-53.0); HEMOGLOBIN 11.3 g/dL (13.0-17.5); LYMPH # 1.9 x10^3/uL (1.0-4.8); LYMPH % 21 % (24-48); MEAN CORPUSCULAR HEMOGLOBIN 30 pg (25-35); MEAN CORPUSCULAR HGB CONC 33 g/dL (31-37); MEAN CORPUSCULAR VOLUME 92 fL (79-100); MONO # 0.9 x10^3/uL (0.0-1.1); MONO % 9 % (0-9); NEUT # 6.3 x10^3uL (1.8-7.7); NEUT % 68 % (31-73); PLATELET COUNT 179 x10^3/uL (140-400); RED BLOOD COUNT 3.77 x10^6/uL (4.30-5.70); RED CELL DISTRIBUTION WIDTH 14.1 % (11.5-14.5); WHITE BLOOD COUNT 9.2 x10^3/uL (4.0-11.0)
[2018-08-30 07:02] LABS: ALBUMIN 3.4 g/dL (3.4-5.0); ALK PHOS 61 U/L (46-116); ALT (SGPT) 45 U/L (16-63); ANION GAP 12 (6-14); AST (SGOT) 32 U/L (15-37); BLOOD UREA NITROGEN 23 mg/dL (8-26); BUN/CREATININE RATIO 33 (6-20); CALCIUM 9.4 mg/dL (8.5-10.1); CARBON DIOXIDE 27 mmol/L (21-32); CHLORIDE 105 mmol/L (98-107); CREATININE 0.7 mg/dL (0.7-1.3); GFR 106.2; GLUCOSE 77 mg/dL (70-99); SODIUM 144 mmol/L (136-145); TOTAL BILIRUBIN 0.3 mg/dL (0.2-1.0); TOTAL PROTEIN 6.8 g/dL (6.4-8.2); VAL ACID 42 mcg/mL (50-100)
[2018-08-30] MEDS: CHOLECALCIFEROL (VITAMIN D3) 1,000 UNIT TABLET PO SCH (07:32)
[2018-08-30] MEDS: metFORMIN 500 MG TABLET PO SCH ×2 (07:32→16:22)
[2018-08-30] MEDS: GLIMEPIRIDE 2 MG TABLET PO SCH (07:32)
[2018-08-30] MEDS: ASPIRIN ENTERIC COATED 81 MG TABLET.DR. PO SCH (07:32)
[2018-08-30] MEDS: DONEPEZIL HCL 10 MG TABLET PO SCH (07:33)
[2018-08-30] MEDS: DIVALPROEX 125 MG CAP.SPRINK PO SCH ×2 (07:33→20:01)
[2018-08-30] MEDS: CETIRIZINE HCL 10 MG TABLET PO SCH (07:33)
[2018-08-30 07:37] LABS: % BANDS 3 % (0-9); % BASOS 0 % (0-3); % EOS 2 % (0-5); % LYMPHS 27 % (24-48); % MONOS 6 % (0-10); % SEGS 62 % (35-66); PLT ESTIMATE ADEQUATE (ADEQUATE)
[2018-08-30] MEDS: DORZOLAMIDE 2% OPHTH SOLUTION 10ML BOTTLE. OU SCH ×2 (07:43→19:17)
[2018-08-30] MEDS: methylPREDNISolone 4 MG TABLET. PO SCH ×2 (07:43→19:18)
[2018-08-30] MEDS: prednisoLONE ACETATE 1% OPHTH SUSPENSION 5ML BOTTLE. OS SCH ×2 (07:43→19:17)
[2018-08-30 14:02] LABS: BACTERIA,URINE MANY /HPF (0-FEW); BILIRUBIN,URINE NEG (NEG); CLARITY,URINE CLOUDY; COLOR,URINE YELLOW; GLUCOSE,URINE NEG (NEG); NITRITE,URINE POS (NEG); RBC,URINE 0 /HPF (0-2); SQUAMOUS EPITHELIAL CELL,UR OCC /LPF; UROBILINOGEN,URINE 1 mg/dL (0.2 mg/dL); WBC,URINE >40 /HPF (0-4)
--- NOTE | 2018-08-30 14:47 | PN ---
DATE: 08/28/2018 PSYCHIATRIC PROGRESS NOTE This late entry, 08/28/2018, covers elements not covered in my initial note. SUBJECTIVE: I met with the patient in the evening. The patient slept 5-1/2 hours previous night. He remains restless, anxious, putting himself on the floor, had to be in the quiet room, was yelling, cursing at staff, somewhat obsessive. REVIEW OF SYSTEMS: Ambulation impaired. No CV, , pulmonary, eye, ENT system symptoms on review. Reliability poor. MENTAL STATUS EXAM: Oriented to himself. Insight, judgment, recent and remote memory, attention, concentration, fund of knowledge poor, consistent with his diagnosis. LABORATORY DATA: Reviewed. IMPRESSION: Major neurocognitive disorder, probably vascular with delusion, depression, behavioral disturbance. Rest unchanged. PLAN: No change from initial note. We have increased the Depakote to 375 mg b.i.d. Check CBC, CMP, valproic acid level in 3 days. Rest unchanged for now. SON POLO MD DR: CARL/efra JOB#: [id number] / [id number]
[2018-08-30] MEDS: MIRTAZAPINE 7.5 MG TABLET. PO SCH (19:18)
[2018-08-30] MEDS: SIMVASTATIN 20 MG TABLET PO SCH (19:18)
[2018-08-30] MEDS: SMZ/TMP 800/160MG TABLET. PO SCH (20:01)
--- NOTE | 2018-08-30 23:05 | PDOC ---
Exam Note: Sid Note: Please also refer to the separate dictated note~for this date of service dictated separately.~Patient seen individually. Discussed the patient with Nursing staff reviewed the chart.~Reviewed interim history and current functioning. Reviewed vital signs,~Labs/ Radiology~and current medications noted below. Continue current treatment with the changes noted in the dictated addendum note Assessment: Vital Signs/I&O: Vital Signs Date Time Temp Pulse Resp B/P (MAP) Pulse Ox O2 Delivery O2 Flow Rate FiO2 08/30/18 06:18 97.6 66 18 126/78 (94) 94 Room Air I & O 08/29/18 08/29/18 08/30/18 15:00 23:00 07:00 Intake Total 600 ml 240 ml Balance 600 ml 240 ml Labs: Laboratory Tests Test 08/30/18 06:39 08/30/18 07:29 08/30/18 13:43 White Blood Count 9.2 x10^3/uL (4.0-11.0) Red Blood Count 3.77 x10^6/uL (4.30-5.70) L Hemoglobin 11.3 g/dL (13.0-17.5) L Hematocrit 34.6 % (39.0-53.0) L Mean Corpuscular Volume 92 fL (79-100) Mean Corpuscular Hemoglobin 30 pg (25-35) Mean Corpuscular Hemoglobin Concent 33 g/dL (31-37) Red Cell Distribution Width 14.1 % (11.5-14.5) Platelet Count 179 x10^3/uL (140-400) Neutrophils (%) (Auto) 68 % (31-73) Lymphocytes (%) (Auto) 21 % (24-48) L Monocytes (%) (Auto) 9 % (0-9) Eosinophils (%) (Auto) 1 % (0-3) Basophils (%) (Auto) 1 % (0-3) Neutrophils # (Auto) 6.3 x10^3uL (1.8-7.7) Lymphocytes # (Auto) 1.9 x10^3/uL (1.0-4.8) Monocytes # (Auto) 0.9 x10^3/uL (0.0-1.1) Eosinophils # (Auto) 0.1 x10^3/uL (0.0-0.7) Basophils # (Auto) 0.0 x10^3/uL (0.0-0.2) Segmented Neutrophils % 62 % (35-66) Band Neutrophils % 3 % (0-9) Lymphocytes % 27 % (24-48) Monocytes % 6 % (0-10) Eosinophils % 2 % (0-5) Basophils % 0 % (0-3) Platelet Estimate Adequate (ADEQUATE) Sodium Level 144 mmol/L (136-145) Potassium Level 4.0 mmol/L (3.5-5.1) Chloride Level 105 mmol/L (98-107) Carbon Dioxide Level 27 mmol/L (21-32) Anion Gap 12 (6-14) Blood Urea Nitrogen 23 mg/dL (8-26) Creatinine 0.7 mg/dL (0.7-1.3) Estimated GFR (Cockcroft-Gault) 106.2 BUN/Creatinine Ratio 33 (6-20) H Glucose Level 77 mg/dL (70-99) Calcium Level 9.4 mg/dL (8.5-10.1) Total Bilirubin 0.3 mg/dL (0.2-1.0) Aspartate Amino Transferase (AST) 32 U/L (15-37) Alanine Aminotransferase (ALT) 45 U/L (16-63) Alkaline Phosphatase 61 U/L (46-116) Total Protein 6.8 g/dL (6.4-8.2) Albumin 3.4 g/dL (3.4-5.0) Albumin/Globulin Ratio 1.0 (1.0-1.7) Valproic Acid Level 42 mcg/mL (50-100) L Valproic Acid Last Dose Date 08/29/2018 Valproic Acid Last Dose Time 2100 Glucose (Fingerstick) 75 mg/dL (70-99) Urine Collection Type Unknown Urine Color Yellow Urine Clarity Cloudy Urine pH 6.0 Urine Specific [place] 1.015 Urine Protein Neg (NEG-TRACE) Urine Glucose (UA) Neg mg/dL (NEG) Urine Ketones (Stick) Neg mg/dL (NEG) Urine Blood Trace (NEG) Urine Nitrite Pos (NEG) Urine Bilirubin Neg (NEG) Urine Urobilinogen Dipstick 1 mg/dL (0.2 mg/dL) Urine Leukocyte Esterase Large (NEG) Urine RBC 0 /HPF (0-2) Urine WBC >40 /HPF (0-4) Urine Squamous Epithelial Cells Occ /LPF Urine Bacteria Many /HPF (0-FEW) Current Medications: Meds: Current Medications Medications (Trade) Dose Ordered Sig/Clint Route PRN Reason Start Time Stop Time Status Last Admin Dose Admin Methylprednisolone (Medrol) 4 mg BID PO 08/30/18 09:00 08/30/18 21:01 DC 08/30/18 19:18 Divalproex Sodium (Depakote Sprinkles) 500 mg HS PO 08/30/18 21:00 08/30/18 20:01 Trimethoprim/ Sulfamethoxazole (Bactrim Ds) 1 tab BID PO 08/30/18 21:00 09/07/18 20:59 08/30/18 20:01 I have reviewed the current psychotropics carefully including drug interactions. Risk benefit ratio favors no change other than as noted in my dictated progress note. Diagnosis: Problems: (1) Anxiety disorder (2) Dementia, vascular, with depression (3) Dementia, vascular, with delusions (4) Dementia in Alzheimer's disease with depression (5) Dementia in Alzheimer's disease with delusions (6) Impulse control disorder SON POLO MD Aug 30, 2018 23:05
--- NOTE | 2018-08-31 00:50 | PN ---
DATE: 08/29/2018 This late entry 08/29 covers elements not covered in my initial note. SUBJECTIVE: I met with the patient evening of 08/29. The patient slept 7-1/2 hours previous night. He has had a difficult day. [facility] to his marked agitation, mood lability, combative in the day room, fixated on wanting his car, so that he can drive down to [place]. REVIEW OF SYSTEMS: Ambulation impaired, with walker. No CV, , pulmonary, eye, ENT system symptoms on review. Reliability poor. MENTAL STATUS EXAM: Oriented to himself. Insight, judgment, recent and remote memory, attention, concentration, fund of knowledge poor, consistent with his diagnosis mentioned in my initial note. IMPRESSION: Major neurocognitive disorder, probably vascular with delusion, depression, behavioral disturbance; anxiety disorder, unspecified; impulse control disorder, unspecified. Unchanged from initial note. PLAN: I returned a call from Allison Easton, the patient's daughter, and I had previously discussed the patient with [facility] social [facility] staff. We discussed the patient's diagnosis, progress, changes we made in his psychotropics including the adjustment of his Depakote and initiation of Luvox for his OCD symptoms. Discussed placement options, answered the daughter's questions. Continue current psychotropics. May need to increase Depakote following the next set of labs. Rest unchanged for now. MAN Shelbie POLO MD DR: CARL/efra JOB#: [id number] / [id number]
[2018-08-31] MEDS: LEVOTHYROXINE 175 MCG TABLET PO SCH (05:34)
[2018-08-31 05:59] VITALS: BP 158/92
[2018-08-31] MEDS ORDERED: methylPREDNISolone 4 MG TABLET. PO SCH (09:00)
[2018-08-31] MEDS: DONEPEZIL HCL 10 MG TABLET PO SCH (10:46)
[2018-08-31] MEDS: CETIRIZINE HCL 10 MG TABLET PO SCH (10:46)
[2018-08-31] MEDS: ASPIRIN ENTERIC COATED 81 MG TABLET.DR. PO SCH (10:46)
[2018-08-31] MEDS: CHOLECALCIFEROL (VITAMIN D3) 1,000 UNIT TABLET PO SCH (10:47)
[2018-08-31] MEDS: GLIMEPIRIDE 2 MG TABLET PO SCH (10:47)
[2018-08-31] MEDS: metFORMIN 500 MG TABLET PO SCH ×2 (10:47→16:56)
[2018-08-31] MEDS: SMZ/TMP 800/160MG TABLET. PO SCH ×2 (10:47→19:28)
[2018-08-31] MEDS: DIVALPROEX 125 MG CAP.SPRINK PO SCH ×2 (10:50→19:28)
[2018-08-31] MEDS: DORZOLAMIDE 2% OPHTH SOLUTION 10ML BOTTLE. OU SCH ×2 (10:51→21:00)
[2018-08-31] MEDS: prednisoLONE ACETATE 1% OPHTH SUSPENSION 5ML BOTTLE. OS SCH ×2 (10:51→21:00)
[2018-08-31 16:05] VITALS: BP 106/71
[2018-08-31] MEDS: hydrOXYzine HCL 25 MG TABLET PO PRN ×2 (17:22→20:32)
[2018-08-31] MEDS: SIMVASTATIN 20 MG TABLET PO SCH (19:28)
[2018-08-31] MEDS: MIRTAZAPINE 7.5 MG TABLET. PO SCH (19:28)
[2018-08-31] MEDS: traZODone 50 MG TABLET. PO PRN (19:29)
--- NOTE | 2018-08-31 22:47 | PDOC ---
Exam Note: Sid Note: Please also refer to the separate dictated note~for this date of service dictated separately.~Patient seen individually. Discussed the patient with Nursing staff reviewed the chart.~Reviewed interim history and current functioning. Reviewed vital signs,~Labs/ Radiology~and current medications noted below. Continue current treatment with the changes noted in the dictated addendum note Assessment: Vital Signs/I&O: Vital Signs Date Time Temp Pulse Resp B/P (MAP) Pulse Ox O2 Delivery O2 Flow Rate FiO2 08/31/18 16:05 98.7 95 18 106/71 (83) 94 08/30/18 06:18 Room Air I & O 08/30/18 08/30/18 08/31/18 15:00 23:00 07:00 Intake Total 480 ml 360 ml Balance 480 ml 360 ml Labs: Laboratory Tests Test 08/31/18 07:28 Glucose (Fingerstick) 69 mg/dL (70-99) L Current Medications: Meds: Current Medications Medications (Trade) Dose Ordered Sig/Clint Route PRN Reason Start Time Stop Time Status Last Admin Dose Admin Methylprednisolone (Medrol) 4 mg DAILY PO 08/31/18 09:00 08/31/18 09:01 DC 08/31/18 10:46 Fluvoxamine Maleate (Luvox) 50 mg DAILY PO 08/31/18 09:00 09/01/18 11:00 08/31/18 10:49 Divalproex Sodium (Depakote Sprinkles) 375 mg DAILY PO 08/31/18 09:00 08/31/18 10:50 I have reviewed the current psychotropics carefully including drug interactions. Risk benefit ratio favors no change other than as noted in my dictated progress note. 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
[2018-09-01] MEDS: LEVOTHYROXINE 175 MCG TABLET PO SCH (05:33)
[2018-09-01 05:58] VITALS: BP 103/65
[2018-09-01] MEDS: ASPIRIN ENTERIC COATED 81 MG TABLET.DR. PO SCH (08:13)
[2018-09-01] MEDS: CETIRIZINE HCL 10 MG TABLET PO SCH (08:13)
[2018-09-01] MEDS: DONEPEZIL HCL 10 MG TABLET PO SCH (08:14)
[2018-09-01] MEDS: metFORMIN 500 MG TABLET PO SCH ×2 (08:14→17:00)
[2018-09-01] MEDS: SMZ/TMP 800/160MG TABLET. PO SCH ×2 (08:14→19:42)
[2018-09-01] MEDS: CHOLECALCIFEROL (VITAMIN D3) 1,000 UNIT TABLET PO SCH (08:14)
[2018-09-01] MEDS: DIVALPROEX 125 MG CAP.SPRINK PO SCH ×2 (08:14→19:42)
[2018-09-01] MEDS: prednisoLONE ACETATE 1% OPHTH SUSPENSION 5ML BOTTLE. OS SCH ×2 (08:15→19:43)
[2018-09-01] MEDS: DORZOLAMIDE 2% OPHTH SOLUTION 10ML BOTTLE. OU SCH ×2 (08:15→19:43)
[2018-09-01] MEDS: GLIMEPIRIDE 2 MG TABLET PO SCH (08:15)
[2018-09-01] MEDS: hydrOXYzine HCL 25 MG TABLET PO PRN (10:42)
[2018-09-01] MEDS: traZODone 50 MG TABLET. PO PRN (12:22)
[2018-09-01 16:23] VITALS: BP 104/62
--- NOTE | 2018-09-01 16:37 | PN ---
DATE: 08/30/2018 PSYCHIATRIC PROGRESS NOTE This late entry, 08/30/2018, covers elements not covered in my initial note. SUBJECTIVE: I met with the patient evening of 08/30/2018. The patient slept 7 hours to previous night. He was also staffed at a treatment team meeting with the entire team earlier in the day and seen individually in the evening. He has been intermittently agitated, aggressive, intrusive, irritable with cares, does accept redirection. Placement at [facility] is being facilitated by social service staff. We will check a UA. LABORATORY DATA: On 08/30/2018, valproic acid level is 42, which is an increase from 27 and we will go ahead and increase the Depakote to 375 mg a.m. and 500 at bedtime. Check CBC, CMP, valproic acid level, ammonia level in 3 days to reach therapeutic level. REVIEW OF SYSTEMS: Ambulation impaired, in wheelchair. No CV, , pulmonary, eye, ENT system symptoms on review. MENTAL STATUS EXAM: Oriented to himself. Insight, judgment, recent and remote memory, attention, concentration, fund of knowledge poor, consistent with his diagnosis mentioned in my initial note. PLAN: No change from initial note other than what is noted above. SON POLO MD DR: CARL/efra JOB#: [id number] / [id number]
[2018-09-01] MEDS: SIMVASTATIN 20 MG TABLET PO SCH (19:42)
[2018-09-01] MEDS: LACTOBACILLUS RHAMNOSUS GG 1 CAPSULE. PO SCH (19:45)
--- NOTE | 2018-09-01 19:59 | PN ---
DATE: 08/31/2018 PSYCHIATRIC PROGRESS NOTE This is a late entry 08/31/2018, covers the elements not covered in my initial note. SUBJECTIVE: I met with the patient evening of 08/31/2018. The patient slept 3-1/4 hours previous night. He did better in the morning, somewhat agitated in the evening. Anxious, restless, wanting his car and wanting to drive to [place]. REVIEW OF SYSTEMS: Ambulation impaired, in wheelchair. No CV, , pulmonary, eye, ENT system symptoms on review. Reliability is poor. MENTAL STATUS EXAM: Oriented to himself. Insight, judgment, recent and remote memory, attention, concentration, fund of knowledge poor, consistent with his diagnosis mentioned in my initial note. PLAN: Increase Remeron from 7.5 mg at bedtime to 15 mg at bedtime. Treat the UTI on Bactrim. Continue rest unchanged for now. MAN Shelbie POLO MD DR: CARL/efra JOB#: [id number] / [id number]
[2018-09-01] MEDS: MIRTAZAPINE 15 MG TABLET PO SCH (20:08)
--- NOTE | 2018-09-01 22:15 | PDOC ---
Exam Note: Sid Note: Please also refer to the separate dictated note~for this date of service dictated separately.~Patient seen individually. Discussed the patient with Nursing staff reviewed the chart.~Reviewed interim history and current functioning. Reviewed vital signs,~Labs/ Radiology~and current medications noted below. Continue current treatment with the changes noted in the dictated addendum note Assessment: Vital Signs/I&O: Vital Signs Date Time Temp Pulse Resp B/P (MAP) Pulse Ox O2 Delivery O2 Flow Rate FiO2 09/01/18 16:23 97.9 96 18 104/62 (76) 96 09/01/18 05:58 Room Air I & O 08/31/18 08/31/18 09/01/18 14:59 22:59 06:59 Intake Total 480 ml 480 ml 120 ml Balance 480 ml 480 ml 120 ml Labs: Laboratory Tests Test 09/01/18 07:17 Glucose (Fingerstick) 108 mg/dL (70-99) H Current Medications: Meds: Current Medications Medications (Trade) Dose Ordered Sig/Clint Route PRN Reason Start Time Stop Time Status Last Admin Dose Admin Mirtazapine (Remeron) 15 mg QHS PO 09/01/18 21:00 09/01/18 20:08 Lactobacillus Rhamnosus (Culturelle) 1 cap BID PO 09/01/18 21:00 09/01/18 19:45 I have reviewed the current psychotropics carefully including drug interactions. Risk benefit ratio favors no change other than as noted in my dictated progress note. Diagnosis: Problems: (1) Anxiety disorder (2) Dementia, vascular, with depression (3) Dementia, vascular, with delusions (4) Dementia in Alzheimer's disease with depression (5) Dementia in Alzheimer's disease with delusions (6) Impulse control disorder SON POLO MD Sep 01, 2018 22:15
[2018-09-02] MEDS: LEVOTHYROXINE 175 MCG TABLET PO SCH (05:44)
[2018-09-02 06:10] VITALS: BP 131/78
[2018-09-02 08:09] LABS: BASO # 0.1 x10^3/uL (0.0-0.2); BASO % 1 % (0-3); EOS # 0.4 x10^3/uL (0.0-0.7); EOS % 3 % (0-3); HEMATOCRIT 35.2 % (39.0-53.0); HEMOGLOBIN 11.2 g/dL (13.0-17.5); LYMPH # 1.3 x10^3/uL (1.0-4.8); LYMPH % 12 % (24-48); MEAN CORPUSCULAR HEMOGLOBIN 30 pg (25-35); MEAN CORPUSCULAR HGB CONC 32 g/dL (31-37); MEAN CORPUSCULAR VOLUME 94 fL (79-100); MONO # 0.8 x10^3/uL (0.0-1.1); MONO % 7 % (0-9); NEUT # 8.8 x10^3uL (1.8-7.7); NEUT % 77 % (31-73); PLATELET COUNT 52 x10^3/uL (140-400); RED BLOOD COUNT 3.73 x10^6/uL (4.30-5.70); RED CELL DISTRIBUTION WIDTH 14.1 % (11.5-14.5); WHITE BLOOD COUNT 11.4 x10^3/uL (4.0-11.0)
[2018-09-02 08:25] LABS: ALBUMIN 3.2 g/dL (3.4-5.0); ALK PHOS 59 U/L (46-116); ALT (SGPT) 42 U/L (16-63); ANION GAP 7 (6-14); AST (SGOT) 26 U/L (15-37); BLOOD UREA NITROGEN 18 mg/dL (8-26); BUN/CREATININE RATIO 20 (6-20); CALCIUM 9.2 mg/dL (8.5-10.1); CARBON DIOXIDE 27 mmol/L (21-32); CHLORIDE 105 mmol/L (98-107); CREATININE 0.9 mg/dL (0.7-1.3); GFR 79.5; GLUCOSE 105 mg/dL (70-99); SODIUM 139 mmol/L (136-145); TOTAL BILIRUBIN 0.3 mg/dL (0.2-1.0); TOTAL PROTEIN 6.4 g/dL (6.4-8.2)
[2018-09-02 08:35] LABS: VAL ACID 45 mcg/mL (50-100)
[2018-09-02] MEDS: metFORMIN 500 MG TABLET PO SCH ×2 (11:30→16:42)
[2018-09-02] MEDS: ASPIRIN ENTERIC COATED 81 MG TABLET.DR. PO SCH (11:30)
[2018-09-02] MEDS: prednisoLONE ACETATE 1% OPHTH SUSPENSION 5ML BOTTLE. OS SCH ×2 (11:31→21:00)
[2018-09-02] MEDS: LACTOBACILLUS RHAMNOSUS GG 1 CAPSULE. PO SCH ×2 (11:31→19:07)
[2018-09-02] MEDS: GLIMEPIRIDE 2 MG TABLET PO SCH (11:31)
[2018-09-02] MEDS: SMZ/TMP 800/160MG TABLET. PO SCH ×2 (11:31→19:07)
[2018-09-02] MEDS: CETIRIZINE HCL 10 MG TABLET PO SCH (11:31)
[2018-09-02] MEDS: DORZOLAMIDE 2% OPHTH SOLUTION 10ML BOTTLE. OU SCH ×2 (11:31→22:53)
[2018-09-02] MEDS: DIVALPROEX 125 MG CAP.SPRINK PO SCH ×2 (11:31→19:07)
[2018-09-02] MEDS: DONEPEZIL HCL 10 MG TABLET PO SCH (11:31)
[2018-09-02] MEDS: CHOLECALCIFEROL (VITAMIN D3) 1,000 UNIT TABLET PO SCH (11:32)
[2018-09-02] MEDS: hydrOXYzine HCL 25 MG TABLET PO PRN ×2 (14:14→19:08)
[2018-09-02 16:01] VITALS: BP 118/71
[2018-09-02] MEDS: MIRTAZAPINE 15 MG TABLET PO SCH (19:07)
[2018-09-02] MEDS: SIMVASTATIN 20 MG TABLET PO SCH (19:07)
[2018-09-02] MEDS: traZODone 50 MG TABLET. PO PRN (19:08)
--- NOTE | 2018-09-02 22:56 | PDOC ---
Exam Note: Sid Note: Please also refer to the separate dictated note~for this date of service dictated separately.~Patient seen individually. Discussed the patient with Nursing staff reviewed the chart.~Reviewed interim history and current functioning. Reviewed vital signs,~Labs/ Radiology~and current medications noted below. Continue current treatment with the changes noted in the dictated addendum note Assessment: Vital Signs/I&O: Vital Signs Date Time Temp Pulse Resp B/P (MAP) Pulse Ox O2 Delivery O2 Flow Rate FiO2 09/02/18 16:01 98.0 105 18 118/71 (87) 96 09/01/18 05:58 Room Air I & O 09/01/18 09/01/18 09/02/18 15:00 23:00 07:00 Intake Total 600 ml 240 ml Balance 600 ml 240 ml Labs: Laboratory Tests Test 09/02/18 07:21 09/02/18 07:40 Glucose (Fingerstick) 106 mg/dL (70-99) H White Blood Count 11.4 x10^3/uL (4.0-11.0) H Red Blood Count 3.73 x10^6/uL (4.30-5.70) L Hemoglobin 11.2 g/dL (13.0-17.5) L Hematocrit 35.2 % (39.0-53.0) L Mean Corpuscular Volume 94 fL (79-100) Mean Corpuscular Hemoglobin 30 pg (25-35) Mean Corpuscular Hemoglobin Concent 32 g/dL (31-37) Red Cell Distribution Width 14.1 % (11.5-14.5) Platelet Count 52 x10^3/uL (140-400) L Neutrophils (%) (Auto) 77 % (31-73) H Lymphocytes (%) (Auto) 12 % (24-48) L Monocytes (%) (Auto) 7 % (0-9) Eosinophils (%) (Auto) 3 % (0-3) Basophils (%) (Auto) 1 % (0-3) Neutrophils # (Auto) 8.8 x10^3uL (1.8-7.7) H Lymphocytes # (Auto) 1.3 x10^3/uL (1.0-4.8) Monocytes # (Auto) 0.8 x10^3/uL (0.0-1.1) Eosinophils # (Auto) 0.4 x10^3/uL (0.0-0.7) Basophils # (Auto) 0.1 x10^3/uL (0.0-0.2) Sodium Level 139 mmol/L (136-145) Potassium Level 4.0 mmol/L (3.5-5.1) Chloride Level 105 mmol/L (98-107) Carbon Dioxide Level 27 mmol/L (21-32) Anion Gap 7 (6-14) Blood Urea Nitrogen 18 mg/dL (8-26) Creatinine 0.9 mg/dL (0.7-1.3) Estimated GFR (Cockcroft-Gault) 79.5 BUN/Creatinine Ratio 20 (6-20) Glucose Level 105 mg/dL (70-99) H Calcium Level 9.2 mg/dL (8.5-10.1) Total Bilirubin 0.3 mg/dL (0.2-1.0) Aspartate Amino Transferase (AST) 26 U/L (15-37) Alanine Aminotransferase (ALT) 42 U/L (16-63) Alkaline Phosphatase 59 U/L (46-116) Ammonia 18 mcmol/L (11-34) Total Protein 6.4 g/dL (6.4-8.2) Albumin 3.2 g/dL (3.4-5.0) L Albumin/Globulin Ratio 1.0 (1.0-1.7) Valproic Acid Level 45 mcg/mL (50-100) L Valproic Acid Last Dose Date 09/01/18 Valproic Acid Last Dose Time 2100 Current Medications: Meds: Current Medications Medications (Trade) Dose Ordered Sig/Clint Route PRN Reason Start Time Stop Time Status Last Admin Dose Admin Fluvoxamine Maleate (Luvox) 75 mg DAILY PO 09/02/18 09:00 09/02/18 11:33 I have reviewed the current psychotropics carefully including drug interactions. Risk benefit ratio favors no change other than as noted in my dictated progress note. 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
[2018-09-03] MEDS: LEVOTHYROXINE 175 MCG TABLET PO SCH (05:46)
[2018-09-03 05:53] VITALS: BP 115/77
[2018-09-03] MEDS: ASPIRIN ENTERIC COATED 81 MG TABLET.DR. PO SCH (11:49)
[2018-09-03] MEDS: prednisoLONE ACETATE 1% OPHTH SUSPENSION 5ML BOTTLE. OS SCH (11:49)
[2018-09-03] MEDS: metFORMIN 500 MG TABLET PO SCH ×2 (11:49→17:01)
[2018-09-03] MEDS: GLIMEPIRIDE 2 MG TABLET PO SCH (11:49)
[2018-09-03] MEDS: DORZOLAMIDE 2% OPHTH SOLUTION 10ML BOTTLE. OU SCH (11:49)
[2018-09-03] MEDS: LACTOBACILLUS RHAMNOSUS GG 1 CAPSULE. PO SCH (11:50)
[2018-09-03] MEDS: SMZ/TMP 800/160MG TABLET. PO SCH (11:50)
[2018-09-03] MEDS: DIVALPROEX 125 MG CAP.SPRINK PO SCH (11:50)
[2018-09-03] MEDS: DONEPEZIL HCL 10 MG TABLET PO SCH (11:50)
[2018-09-03] MEDS: CHOLECALCIFEROL (VITAMIN D3) 1,000 UNIT TABLET PO SCH (11:51)
[2018-09-03] MEDS: CETIRIZINE HCL 10 MG TABLET PO SCH (11:51)
[2018-09-03] MEDS: hydrOXYzine HCL 25 MG TABLET PO PRN (15:30)
[2018-09-03 16:25] VITALS: BP 101/59
[2018-09-03] MEDS ORDERED: LACT1CAP21 PO (17:23)
[2018-09-03] MEDS ORDERED: GLIM2TAB PO (17:23)
[2018-09-03] MEDS ORDERED: MAG355OR17 PO (17:24)
[2018-09-03] MEDS ORDERED: MAGN2400 PO (17:25)
[2018-09-03] MEDS ORDERED: METH29OI TP (17:27)
[2018-09-03] MEDS ORDERED: PRED5DRO16 LEFTEYE (17:28)
[2018-09-03] MEDS ORDERED: DONE10TA61 PO (17:31)
[2018-09-03] MEDS ORDERED: DIVA125C2 PO ×2 (17:33)
[2018-09-03] MEDS ORDERED: MIRT15TA PO (17:34)
[2018-09-03] MEDS ORDERED: OLAN5TAB5 PO (17:35)
[2018-09-03] MEDS ORDERED: FLUV50TA2 PO (17:37)
[2018-09-03] MEDS ORDERED: HYDR25TA PO (17:40)
--- NOTE | 2018-09-03 18:41 | PDOC ---
Exam Note: Sid Note: Please also refer to the separate dictated note~for this date of service dictated separately.~Patient seen individually. Discussed the patient with Nursing staff reviewed the chart.~Reviewed interim history and current functioning. Reviewed vital signs,~Labs/ Radiology~and current medications noted below. Continue current treatment with the changes noted in the dictated addendum note Assessment: Vital Signs/I&O: Vital Signs Date Time Temp Pulse Resp B/P (MAP) Pulse Ox O2 Delivery O2 Flow Rate FiO2 09/03/18 16:25 97.8 89 18 101/59 (73) 95 09/03/18 05:53 Room Air I & O 09/02/18 09/02/18 09/03/18 15:00 23:00 07:00 Intake Total 120 ml 120 ml 240 ml Balance 120 ml 120 ml 240 ml Labs: Laboratory Tests Test 09/03/18 07:33 Glucose (Fingerstick) 91 mg/dL (70-99) Current Medications: I have reviewed the current psychotropics carefully including drug interactions. Risk benefit ratio favors no change other than as noted in my dictated progress note. Diagnosis: Problems: (1) Impulse control disorder (2) Dementia in Alzheimer's disease with delusions (3) Dementia in Alzheimer's disease with depression (4) Dementia, vascular, with delusions (5) Dementia, vascular, with depression (6) Anxiety disorder SON POLO MD Sep 03, 2018 18:41
--- NOTE | 2018-09-03 22:09 | PN ---
DATE: 09/02/2018 PSYCHIATRIC PROGRESS NOTE This late entry 09/02/2018 covers elements not covered in my initial note. SUBJECTIVE: The patient slept 7-1/4 hours previous night. He remains confused, wanting to go to [place]. REVIEW OF SYSTEMS: Ambulation impaired, in wheelchair. MENTAL STATUS EXAM: Oriented to himself. Insight, judgment, and memory is impaired. No suicidal or homicidal ideation noted per staff. IMPRESSION: Unchanged from initial note. PLAN: No change from initial note. MAN Shelbie POLO MD DR: CARL/efra JOB#: [id number] / [id number]
--- NOTE | 2018-09-03 22:11 | PN ---
DATE: 09/01/2018 PSYCHIATRIC PROGRESS NOTE This is a late entry 09/01/2018, covers the elements not covered in my initial note. SUBJECTIVE: I met with the patient in the evening. The patient slept 6-1/4 hours previous night. He has had a "rough day" per nursing report. He slept poorly even with the trazodone. He received Atarax and Zyprexa in the morning and trazodone 12.5 mg p.r.n. He is looking for his , wants to go down to [place]. He does have an UTI, on Bactrim. REVIEW OF SYSTEMS: Ambulation impaired, in wheelchair. No CV, , pulmonary, eye, ENT system symptoms on review. Reliability is poor. MENTAL STATUS EXAM: Oriented to himself. Insight, judgment, recent and remote memory, attention, concentration, fund of knowledge poor, consistent with his diagnosis including UTI. PLAN: Continue current psychotropics. Treat the UTI. Adjust further as clinically indicated. MAN Shelbie POLO MD DR: CARL/efra JOB#: [id number] / [id number]
--- NOTE | 2018-09-05 02:20 | DS ---
DATE OF DISCHARGE: 09/03/2018 DISCHARGE/PSYCHIATRIC PROGRESS NOTE This is a late entry 09/03/2018 covers elements not covered in my initial note. Met with the patient the evening of 09/03/2018. REASON FOR ADMISSION: Please refer to the admission history for details. Briefly, the patient is an 88-year-old male referred to us from [facility], where he presented from [facility] on account of worsening confusion, paranoia, threatening to kill the other residents, cursing, disruptive, using a walker to hit others with marked mood lability. The patient's behaviors were deemed dangerous, unmanageable at the facility having failed outpatient psychiatric interventions. He was referred for inpatient psychiatric stabilization. SIGNIFICANT FINDINGS AND CLINICAL COURSE: Following admission, the patient was seen daily individually by myself from a psychiatric standpoint, medical followup with Dr. Mayo. The patient was extremely confused, agitated with marked mood lability, anxiety. Adjustments were made in his psychotropics. He seemed to do better on a combination of Remeron 15 mg at bedtime, Zyprexa p.r.n., Aricept 10 mg a day, Depakote 375 mg b.i.d. with repeat labs level were awaited prior to him being prematurely discharged to [facility] surgical floor for management of his UTI, on IV antibiotics. He is also on Atarax and trazodone p.r.n. and Luvox was initiated for his OCD symptoms and was being gradually adjusted. Prior to discharge, 09/03/2018 ambulation impaired, in wheelchair. No CV, , pulmonary, eye, ENT system symptoms on review. Reliability poor. MENTAL STATUS EXAM: Oriented to himself. Insight, judgment, recent and remote memory, attention, concentration, fund of knowledge poor, consistent with his diagnosis. FINAL DIAGNOSES: Major neurocognitive disorder, Alzheimer, vascular with delusion, depression, behavioral disturbance; anxiety disorder, unspecified; impulse control disorder, unspecified. Urinary tract infection, rest unchanged from admission. DISCHARGE MEDICATIONS: Please refer to [facility]. DISCHARGE INSTRUCTIONS: Medical and psychiatric followup in [facility]. Time for discharge day management greater than 30 minutes. SON POLO MD DR: CARL/efra JOB#: [id number] / [id number]
== END 2018-09-03 18:05 | disposition short-term general hospital (02) | DRG 57 ==
LOC: GEROPSY 23:00
PROVIDERS: ADMIT Psychiatry & Neurology Psychiatry; ATTEND Psychiatry & Neurology Psychiatry
DX: G30.9 Alzheimer's disease, unspecified (principal); F01.51 Vascular dementia, unspecified severity, with behavioral disturbance; F02.81 Dementia in other diseases classified elsewhere, unspecified severity, with behavioral disturbance; N39.0 Urinary tract infection, site not specified; E03.9 Hypothyroidism, unspecified; E11.65 Type 2 diabetes mellitus with hyperglycemia; E78.5 Hyperlipidemia, unspecified; F32.9 Major depressive disorder, single episode, unspecified; F41.1 Generalized anxiety disorder; F42.9 Obsessive-compulsive disorder, unspecified; F63.9 Impulse disorder, unspecified; H40.9 Unspecified glaucoma; H91.90 Unspecified hearing loss, unspecified ear; I10 Essential (primary) hypertension; Z66 Do not resuscitate; Z79.899 Other long term (current) drug therapy; Z86.79 Personal history of other diseases of the circulatory system
CPT/HCPCS: 36415; 70450; 80053; 80061; 80164; 81001; 82140; 82947; 83036; 83735; 84436; 84443; 84480; 85007; 85025; 86592; 87045; 87086; 87186; J7509; J7030

== ENCOUNTER 2018-09-03 17:06 | Inpatient (IN) | payer MEDICARE, OTHER ==
[~2018-09-03] VITALS: Ht 177.8 cm; Wt 90.0 kg
[~2018-09-03 17:06] MED LIST: ACET325T9 PO; ASPI81TA50 PO; CHOL100013 PO; CITA10TA4 PO; DONE10TA14 PO; DORZ10DR26 EACHEYE; ISOS30TA4 PO; LEVO175T5 PO; LOTE5DRO2 LEFTEYE; METF10007 PO; METO25TA4 PO; NYST15CR TP; SIMV20TA3 PO; TRAZ-120 PO
[2018-09-03] MEDS ORDERED: LACT1CAP21 PO (17:23)
[2018-09-03] MEDS ORDERED: GLIM2TAB PO (17:23)
[2018-09-03] MEDS ORDERED: MAG355OR17 PO (17:24)
[2018-09-03] MEDS ORDERED: MAGN2400 PO (17:25)
[2018-09-03] MEDS ORDERED: METH29OI TP (17:27)
[2018-09-03] MEDS ORDERED: PRED5DRO16 LEFTEYE (17:28)
[2018-09-03] MEDS ORDERED: DONE10TA61 PO (17:31)
[2018-09-03] MEDS ORDERED: DIVA125C2 PO ×2 (17:33)
[2018-09-03] MEDS ORDERED: MIRT15TA PO (17:34)
[2018-09-03] MEDS ORDERED: OLAN5TAB5 PO (17:35)
[2018-09-03] MEDS ORDERED: FLUV50TA2 PO (17:37)
[2018-09-03] MEDS ORDERED: HYDR25TA PO (17:40)
[2018-09-03] MEDS ORDERED: ACETAMINOPHEN 325 MG TABLET PO PRN (18:45)
[2018-09-03] MEDS ORDERED: METHYL SALICYLATE/MENTHOL TOPICAL OINTMENT 29GM TUBE. TP PRN (18:45)
[2018-09-03] MEDS ORDERED: hydrOXYzine HCL 25 MG TABLET PO PRN (18:45)
[2018-09-03] MEDS ORDERED: MAG HYDROX/AL HYDROX/SIMETH 30 ML ORAL.SUSP PO PRN (19:15)
[2018-09-03 19:36] VITALS: BP 114/69
[2018-09-03] MEDS: SIMVASTATIN 20 MG TABLET PO SCH (20:31)
[2018-09-03] MEDS: LACTOBACILLUS RHAMNOSUS GG 1 CAPSULE. PO SCH (20:31)
[2018-09-03] MEDS: DIVALPROEX 125 MG CAP.SPRINK PO SCH (20:31)
[2018-09-03] MEDS: traZODone 50 MG TABLET. PO PRN (20:31)
[2018-09-03] MEDS: MIRTAZAPINE 15 MG TABLET PO SCH (20:31)
[2018-09-03] MEDS ORDERED: MAGNESIUM HYDROXIDE 2,400 MG/30 ML ORAL.SUSP. PO SCH (21:00)
[2018-09-03] MEDS: NYSTATIN 100,000 UNIT/GM TOPICAL CREAM 15GM TUBE. TP SCH (21:00)
[2018-09-03] MEDS: DORZOLAMIDE 2% OPHTH SOLUTION 10ML BOTTLE. OU SCH (21:00)
[2018-09-03] MEDS: prednisoLONE ACETATE 1% OPHTH SUSPENSION 5ML BOTTLE. OS SCH (21:00)
[2018-09-03] MEDS ORDERED: MAGNESIUM HYDROXIDE 2,400 MG/30 ML ORAL.SUSP. PO PRN (21:30)
[2018-09-03] MEDS: MEROPENEM 1 GM in IV NORMAL SALINE 100ML 100 ML IV SCH (21:42)
[2018-09-03 22:23] VITALS: BP 115/72
[2018-09-04] MEDS: MEROPENEM 1 GM in IV NORMAL SALINE 100ML 100 ML IV SCH ×2 (05:07→14:04)
[2018-09-04] MEDS: LEVOTHYROXINE 175 MCG TABLET PO SCH (05:07)
[2018-09-04 06:05] VITALS: BP 112/74
[2018-09-04] MEDS: NYSTATIN 100,000 UNIT/GM TOPICAL CREAM 15GM TUBE. TP SCH ×2 (09:00→21:00)
[2018-09-04] MEDS: ASPIRIN 81 MG TAB.CHEW PO SCH (09:37)
[2018-09-04] MEDS: DIVALPROEX 125 MG CAP.SPRINK PO SCH ×2 (09:38→21:25)
[2018-09-04] MEDS: CHOLECALCIFEROL (VITAMIN D3) 1,000 UNIT TABLET PO SCH (09:38)
[2018-09-04] MEDS: DONEPEZIL HCL 10 MG TABLET PO SCH (09:38)
[2018-09-04] MEDS: LACTOBACILLUS RHAMNOSUS GG 1 CAPSULE. PO SCH ×2 (09:38→21:25)
[2018-09-04] MEDS: GLIMEPIRIDE 2 MG TABLET PO SCH (09:38)
[2018-09-04] MEDS: metFORMIN 500 MG TABLET PO SCH ×2 (09:38→16:31)
[2018-09-04] MEDS: prednisoLONE ACETATE 1% OPHTH SUSPENSION 5ML BOTTLE. OS SCH ×2 (09:39→21:25)
[2018-09-04] MEDS: DORZOLAMIDE 2% OPHTH SOLUTION 10ML BOTTLE. OU SCH ×2 (09:39→21:25)
[2018-09-04] MEDS: FLUVOXAMINE MALEATE 25 MG TABLET PO SCH (09:40)
[2018-09-04 10:39] VITALS: BP 106/60
[2018-09-04 11:35] LABS: CALCIUM 9.1 mg/dL (8.5-10.1); CREATININE 1.1 mg/dL (0.7-1.3); POTASSIUM 4.3 mmol/L (3.5-5.1)
[2018-09-04 11:38] LABS: BASO % 0 % (0-3); EOS # 0.4 x10^3/uL (0.0-0.7); EOS % 4 % (0-3); HEMATOCRIT 38.7 % (39.0-53.0); HEMOGLOBIN 12.6 g/dL (13.0-17.5); LYMPH # 0.9 x10^3/uL (1.0-4.8); LYMPH % 9 % (24-48); MEAN CORPUSCULAR HEMOGLOBIN 30 pg (25-35); MEAN CORPUSCULAR HGB CONC 33 g/dL (31-37); MEAN CORPUSCULAR VOLUME 93 fL (79-100); MONO # 0.8 x10^3/uL (0.0-1.1); MONO % 9 % (0-9); NEUT # 7.5 x10^3uL (1.8-7.7); NEUT % 78 % (31-73); PLATELET COUNT 170 x10^3/uL (140-400); RED BLOOD COUNT 4.19 x10^6/uL (4.30-5.70); RED CELL DISTRIBUTION WIDTH 14.1 % (11.5-14.5); WHITE BLOOD COUNT 9.7 x10^3/uL (4.0-11.0)
[2018-09-04 12:50] LABS: % BANDS 1 % (0-9); % BASOS 1 % (0-3); % EOS 3 % (0-5); % LYMPHS 6 % (24-48); % MONOS 11 % (0-10); % SEGS 78 % (35-66)
[2018-09-04 12:52] LABS: PLT ESTIMATE ADEQUATE (ADEQUATE)
[2018-09-04 15:04] VITALS: BP 100/58
--- NOTE | 2018-09-04 19:00 | HP ---
ADMIT DATE: HISTORY OF PRESENT ILLNESS: The patient is an 88-year-old male patient who was transferred from [facility] as his urine culture has grown greater than 100,000 colony forming units per mL of multidrug resistant organism with a probable extended-spectrum beta lactamase and therefore, he was transferred from [facility] to [address] [place] [address] to be isolated and was started on IV antibiotic in the form of meropenem 1 gram IV q. 8 hourly. The patient himself is extremely demented, does not give any useful information. The patient was admitted to [facility] as a transfer from [facility] on account of threatening to kill residents at the facility. He was cursing, disruptive, using a walker to hit others, labile in his mood, extremely confused, psychotic name calling. He is getting in other residents personal space. Behaviors were deemed dangerous, unmanageable, out of control, had failed outpatient psychiatric intervention resulting in referral to [facility]. PAST PSYCHIATRIC HISTORY: Significant for long history of dementia with Alzheimer, vascular type and has been residing at the above-named facility for some time, but more recently getting paranoid, agitated, anxious, irritable with sleep and appetite changes. PAST MEDICAL HISTORY: Significant for abdominal aortic aneurysm, hypertension, hyperlipidemia, hypothyroidism, type 2 diabetes, glaucoma. PAST SURGICAL HISTORY: Unremarkable. ALLERGIES: He is allergic to PENICILLIN. His code status is DNR/DNI. He is on a regular diet. FAMILY HISTORY: Noncontributory. SOCIAL HISTORY: He is a resident at [facility]. He does not smoke, drink alcohol or use recreational drugs. PHYSICAL EXAMINATION: GENERAL: On arrival to [address] [place] [address], he looked well and was clearly in no apparent respiratory distress. No pallor, jaundice, cyanosis, or thyromegaly. No jugular venous distension. No limb edema. VITAL SIGNS: Her heart rate was 88, blood pressure 115/72, temperature was 98, respiratory rate was 18 and oxygen saturation was 95% on room air. HEAD, EYES, EARS, NOSE AND THROAT: Showed normocephalic, atraumatic. NECK: Supple. HEART: Showed normal first and second heart sounds. No gallop, rub or murmur. CHEST: Clear to auscultation. No crepitation or rhonchi. ABDOMEN: Distended, soft, nontender. NEUROLOGIC: He is extremely demented, but without any obvious lateralizing sign. All his cranial nerves are intact. EXTREMITIES: He moves extremities without difficulty, though he is mostly bed bound, wheelchair bound. LABORATORY DATA: On admission showed a white cell count of 11,400, hemoglobin 11.2, hematocrit 35, MCV 94 and platelet count of 52,000. His chemistry showed a serum sodium to be 139, potassium 4, chloride 105, bicarbonate 27, anion gap of 7, BUN 18, creatinine 0.9, estimated GFR was 79 mL per minute. His glucose was 105, calcium was 9.2. Total bilirubin, AST, ALT, alkaline phosphatase were normal. Total protein was 6.4, albumin was 3.2. ASSESSMENT AND PLAN: He was started on IV meropenem at 1 gram IV every 8 hours as per pharmacy recommendation. He was continued on all other medication including Amaryl 2 mg once a day, fluvoxamine 75 mg daily, Aricept 10 mg daily, divalproex 375 mg daily, vitamin D 2000 international units once a day, metformin 1000 mg twice a day with meals, aspirin 81 mg once a day, levothyroxine sodium 175 mg once a day, magnesium hydroxide for milk of magnesia 30 mL p.o. daily p.r.n. for constipation, simvastatin 20 mg at bedtime, Nystatin powder applied topically twice a day, mirtazapine 15 mg at bedtime, lactobacillus rhamnosus 1 capsule p.o. b.i.d., dorzolamide 1 drop to both eyes twice a day, divalproex sodium 500 mg at bedtime, prednisolone acetate for Pred Forte 1 drop to both eyes twice a day, olanzapine 2.5 mg every 2 hours, trazodone 12.5 mg 3 times a day, Mylanta 15 mL 4 times a day, hydroxyzine 25 mg every 2 hours as needed and acetaminophen 500 mg every 8 hours as needed. ADMISSION DIAGNOSES: Urinary tract infection with extended-spectrum beta lactamase Escherichia coli. Other medical problems include hypertension, hyperlipidemia, hypothyroidism, type 2 diabetes mellitus, glaucoma and abdominal aortic aneurysm. MORENITA PONCE MD DR: SWAPNIL/efra JOB#: [id number] / [id number]
[2018-09-04 19:05] VITALS: BP 120/73
[2018-09-04] MEDS: SIMVASTATIN 20 MG TABLET PO SCH (21:25)
[2018-09-04] MEDS: MIRTAZAPINE 15 MG TABLET PO SCH (21:25)
[2018-09-04 22:10] VITALS: BP 124/73
[2018-09-05] MEDS: MEROPENEM 1 GM in IV NORMAL SALINE 100ML 100 ML IV SCH ×4 (00:16→21:18)
[2018-09-05] MEDS: LEVOTHYROXINE 175 MCG TABLET PO SCH (06:05)
[2018-09-05 06:40] VITALS: BP 109/57
[2018-09-05] MEDS: CHOLECALCIFEROL (VITAMIN D3) 1,000 UNIT TABLET PO SCH (10:48)
[2018-09-05] MEDS: DIVALPROEX 125 MG CAP.SPRINK PO SCH ×2 (10:48→21:10)
[2018-09-05] MEDS: ASPIRIN 81 MG TAB.CHEW PO SCH (10:49)
[2018-09-05] MEDS: DONEPEZIL HCL 10 MG TABLET PO SCH (10:49)
[2018-09-05] MEDS: LACTOBACILLUS RHAMNOSUS GG 1 CAPSULE. PO SCH ×2 (10:49→21:10)
[2018-09-05] MEDS: prednisoLONE ACETATE 1% OPHTH SUSPENSION 5ML BOTTLE. OS SCH ×2 (10:49→21:10)
[2018-09-05] MEDS: GLIMEPIRIDE 2 MG TABLET PO SCH (10:49)
[2018-09-05] MEDS: metFORMIN 500 MG TABLET PO SCH ×2 (10:49→17:49)
[2018-09-05] MEDS: DORZOLAMIDE 2% OPHTH SOLUTION 10ML BOTTLE. OU SCH ×2 (10:49→21:10)
[2018-09-05] MEDS: FLUVOXAMINE MALEATE 25 MG TABLET PO SCH (10:50)
[2018-09-05] MEDS: NYSTATIN 100,000 UNIT/GM TOPICAL CREAM 15GM TUBE. TP SCH ×2 (11:12→21:00)
[2018-09-05 13:01] VITALS: BP 161/73
[2018-09-05 14:49] VITALS: BP 111/62
--- NOTE | 2018-09-05 16:03 | PN ---
DATE: 09/04/2018 SUBJECTIVE: The patient is resting slightly propped up in bed, in no apparent distress. He is very confused, but denied any complaint. The nursing staff did not voice any concern. He generally has an uneventful night. Continued to be at restless, agitated at times, but denied any dysuria, frequency, hematuria and no documented fever, chills or rigors. PHYSICAL EXAMINATION: GENERAL: When I examined him this afternoon, he looked well and was clearly in no apparent respiratory distress slightly. No pallor, jaundice, cyanosis, or thyromegaly. No jugular venous distension. No limb edema. VITAL SIGNS: Heart rate was 93, blood pressure was 100/58, temperature was 98.1, respiratory rate was 20, and oxygen saturation was 97% on room air. HEAD, EYES, EARS, NOSE AND THROAT: Showed normocephalic, atraumatic. NECK: Supple. HEART: Showed normal first and second heart sounds. No gallop, rub or murmur. CHEST: Clear to auscultation. No crepitation or rhonchi. ABDOMEN: Distended, soft, nontender. No guarding or rigidity. No organomegaly. All hernial orifice intact. Bowel sounds normal. NEUROLOGIC: He is demented, but without any obvious lateralizing sign. All his cranial nerves are intact. He moves extremities without difficulty. He is mostly bedbound, chair bound. LABORATORY DATA: His lab work this morning showed a white cell count of 9700, hemoglobin 12.6, hematocrit 38, MCV 93, and platelet count of 170,000. His chemistry showed a serum sodium 139, potassium 4.3, chloride 103, bicarbonate 25, anion gap of 11, BUN 22, creatinine 1.1, estimated GFR was 63 mL per minute. His glucose 121, calcium was 9.1. His nasal screen for MRSA by PCR was positive. ASSESSMENT AND PLAN: In summary, this is an 88-year-old male patient who was transferred from [facility] on account of multidrug resistant Escherichia coli grown in his urine. He is also Methicillin resistant staphylococcus aureus positive. He is now on IV meropenem given that he is allergic to PENICILLIN, has multiple other medical problems including hypertension, hyperlipidemia, hypothyroidism, type 2 diabetes, benign prostatic hypertrophy, and glaucoma. MORENITA PONCE MD DR: SWAPNIL/efra JOB#: [id number] / [id number]
[2018-09-05 19:16] VITALS: BP 102/64
[2018-09-05] MEDS: MIRTAZAPINE 15 MG TABLET PO SCH (21:10)
[2018-09-05] MEDS: SIMVASTATIN 20 MG TABLET PO SCH (21:10)
[2018-09-06 06:46] VITALS: BP 117/76
[2018-09-06] MEDS: MEROPENEM 1 GM in IV NORMAL SALINE 100ML 100 ML IV SCH ×3 (06:46→22:13)
[2018-09-06] MEDS: LEVOTHYROXINE 175 MCG TABLET PO SCH (06:46)
[2018-09-06 08:15] LABS: BASO # 0.1 x10^3/uL (0.0-0.2); BASO % 1 % (0-3); EOS # 0.6 x10^3/uL (0.0-0.7); EOS % 6 % (0-3); HEMATOCRIT 37.5 % (39.0-53.0); HEMOGLOBIN 11.8 g/dL (13.0-17.5); LYMPH # 1.2 x10^3/uL (1.0-4.8); LYMPH % 13 % (24-48); MEAN CORPUSCULAR HEMOGLOBIN 30 pg (25-35); MEAN CORPUSCULAR HGB CONC 32 g/dL (31-37); MEAN CORPUSCULAR VOLUME 95 fL (79-100); MONO % 11 % (0-9); NEUT # 6.8 x10^3uL (1.8-7.7); NEUT % 70 % (31-73); PLATELET COUNT 138 x10^3/uL (140-400); RED BLOOD COUNT 3.96 x10^6/uL (4.30-5.70); RED CELL DISTRIBUTION WIDTH 14.2 % (11.5-14.5); WHITE BLOOD COUNT 9.7 x10^3/uL (4.0-11.0)
[2018-09-06 08:22] LABS: ALBUMIN/GLOBULIN RATIO 0.9 (1.0-1.7); CALCIUM 9.1 mg/dL (8.5-10.1); CREATININE 0.9 mg/dL (0.7-1.3); GFR 79.5; POTASSIUM 3.9 mmol/L (3.5-5.1); TOTAL BILIRUBIN 0.3 mg/dL (0.2-1.0); TOTAL PROTEIN 6.3 g/dL (6.4-8.2)
[2018-09-06] MEDS: prednisoLONE ACETATE 1% OPHTH SUSPENSION 5ML BOTTLE. OS SCH ×2 (08:57→21:05)
[2018-09-06] MEDS: DORZOLAMIDE 2% OPHTH SOLUTION 10ML BOTTLE. OU SCH ×2 (08:57→21:05)
[2018-09-06] MEDS: metFORMIN 500 MG TABLET PO SCH ×2 (08:57→18:11)
[2018-09-06] MEDS: GLIMEPIRIDE 2 MG TABLET PO SCH (08:57)
[2018-09-06] MEDS: LACTOBACILLUS RHAMNOSUS GG 1 CAPSULE. PO SCH ×2 (08:58→21:05)
[2018-09-06] MEDS: DONEPEZIL HCL 10 MG TABLET PO SCH (08:58)
[2018-09-06] MEDS: FLUVOXAMINE MALEATE 25 MG TABLET PO SCH (09:00)
[2018-09-06] MEDS: NYSTATIN 100,000 UNIT/GM TOPICAL CREAM 15GM TUBE. TP SCH ×2 (09:00→21:05)
[2018-09-06] MEDS: CHOLECALCIFEROL (VITAMIN D3) 1,000 UNIT TABLET PO SCH (09:00)
[2018-09-06] MEDS: ASPIRIN 81 MG TAB.CHEW PO SCH (09:01)
[2018-09-06] MEDS: DIVALPROEX 125 MG CAP.SPRINK PO SCH ×2 (09:04→21:05)
--- NOTE | 2018-09-06 09:14 | PN ---
DATE: 09/05/2018 SUBJECTIVE: The patient is resting slightly propped up in bed, in no apparent distress. He apparently sundowner has not slept the whole night. At around 5:00 this morning when I saw him this morning he was just woke up. The nursing staff did not voice any concerns, said he was generally uneventful night. PHYSICAL EXAMINATION: GENERAL: When I examined him, he looked pale. No jaundice, cyanosis or thyromegaly. No jugular venous distension. No edema. VITAL SIGNS: His heart rate was 71, blood pressure was 109/57, temperature was 98, respiratory rate was 17 and oxygen saturation was 93%. HEAD, EYES, EARS, NOSE AND THROAT: Normocephalic, atraumatic. NECK: Supple. HEART: Showed normal first and second heart sounds. No gallop, rub or murmur. CHEST: Clear to auscultation ____ or rhonchi. ABDOMEN: Distended, soft, nontender. No guarding or rigidity. No organomegaly. All hernial orifices intact. Bowel sounds normal. NEUROLOGIC: He was demented but without any obvious lateralizing sign. All his cranial nerves are intact. He moves upper extremities without difficulty; however, he is mostly chair bound. His intake over the last 24 hours was 340, output was 250. LABORATORY DATA: His lab work as of yesterday showed a white cell count of 9700, hemoglobin 12.6, hematocrit 38, MCV 93 and platelet count 270,000. His chemistry showed a serum sodium 139, potassium 4.3, chloride 103, bicarbonate 25, anion gap of 11, BUN 22, creatinine 1.1. Estimated GFR was 63 mL per minute. His glucose 121, calcium was 9.1. His nasal screen for MRSA by PCR was positive. His urine culture has grown more than 100,000 colony forming units per mL of extended spectrum beta lactamase Escherichia coli sensitive to meropenem. ASSESSMENT: Extended spectrum beta lactamase Escherichia coli urinary tract infection for which he is now on IV meropenem. The patient is positive for MRSA in his nares. He has multiple other medical problems including: A. Hypertension. B. Hyperlipidemia. C. Hypothyroidism. D. Type 2 diabetes mellitus. E. Glaucoma. F. Abdominal aortic aneurysm. PLAN: To continue with IV meropenem. Continue with the glimepiride as well as metformin. MORENITA PONCE MD DR: Irma JOB#: [id number] / [id number]
[2018-09-06 15:29] VITALS: BP 111/72
[2018-09-06 19:46] VITALS: BP 98/64
[2018-09-06] MEDS: MIRTAZAPINE 15 MG TABLET PO SCH (21:05)
[2018-09-06] MEDS: SIMVASTATIN 20 MG TABLET PO SCH (21:05)
[2018-09-06 23:19] VITALS: BP 116/53
[2018-09-07] MEDS: LEVOTHYROXINE 175 MCG TABLET PO SCH (06:03)
[2018-09-07] MEDS: MEROPENEM 1 GM in IV NORMAL SALINE 100ML 100 ML IV SCH ×3 (06:03→21:51)
--- NOTE | 2018-09-07 06:23 | PDOC ---
Exam Note: Sid Note: Late entry for DOS 09/06/2018. Please also refer to the separate dictated note~for this date of service dictated separately.~Patient seen individually. Discussed the patient with Nursing staff reviewed the chart.~Reviewed interim history and current functioning. Reviewed vital signs,~Labs/ Radiology~and current medications noted below. Continue current treatment with the changes noted in the dictated addendum note Assessment: Vital Signs/I&O: Vital Signs Date Time Temp Pulse Resp B/P (MAP) Pulse Ox O2 Delivery O2 Flow Rate FiO2 09/06/18 23:19 97.6 80 20 116/53 (74) 96 Room Air I & O 09/06/18 09/06/18 09/07/18 14:59 22:59 06:59 Intake Total 220 ml 1005.08 ml 0 ml Balance 220 ml 1005.08 ml 0 ml Labs: Laboratory Tests Test 09/06/18 07:39 09/06/18 08:00 09/06/18 11:44 09/06/18 17:15 Glucose (Fingerstick) 87 mg/dL (70-99) 124 mg/dL (70-99) H 101 mg/dL (70-99) H White Blood Count 9.7 x10^3/uL (4.0-11.0) Red Blood Count 3.96 x10^6/uL (4.30-5.70) L Hemoglobin 11.8 g/dL (13.0-17.5) L Hematocrit 37.5 % (39.0-53.0) L Mean Corpuscular Volume 95 fL (79-100) Mean Corpuscular Hemoglobin 30 pg (25-35) Mean Corpuscular Hemoglobin Concent 32 g/dL (31-37) Red Cell Distribution Width 14.2 % (11.5-14.5) Platelet Count 138 x10^3/uL (140-400) L Neutrophils (%) (Auto) 70 % (31-73) Lymphocytes (%) (Auto) 13 % (24-48) L Monocytes (%) (Auto) 11 % (0-9) H Eosinophils (%) (Auto) 6 % (0-3) H Basophils (%) (Auto) 1 % (0-3) Neutrophils # (Auto) 6.8 x10^3uL (1.8-7.7) Lymphocytes # (Auto) 1.2 x10^3/uL (1.0-4.8) Monocytes # (Auto) 1.0 x10^3/uL (0.0-1.1) Eosinophils # (Auto) 0.6 x10^3/uL (0.0-0.7) Basophils # (Auto) 0.1 x10^3/uL (0.0-0.2) Sodium Level 140 mmol/L (136-145) Potassium Level 3.9 mmol/L (3.5-5.1) Chloride Level 106 mmol/L (98-107) Carbon Dioxide Level 25 mmol/L (21-32) Anion Gap 9 (6-14) Blood Urea Nitrogen 19 mg/dL (8-26) Creatinine 0.9 mg/dL (0.7-1.3) Estimated GFR (Cockcroft-Gault) 79.5 BUN/Creatinine Ratio 21 (6-20) H Glucose Level 87 mg/dL (70-99) Calcium Level 9.1 mg/dL (8.5-10.1) Total Bilirubin 0.3 mg/dL (0.2-1.0) Aspartate Amino Transferase (AST) 28 U/L (15-37) Alanine Aminotransferase (ALT) 37 U/L (16-63) Alkaline Phosphatase 65 U/L (46-116) Total Protein 6.3 g/dL (6.4-8.2) L Albumin 3.0 g/dL (3.4-5.0) L Albumin/Globulin Ratio 0.9 (1.0-1.7) L Current Medications: I have reviewed the current psychotropics carefully including drug interactions. Risk benefit ratio favors no change other than as noted in my dictated progress note. Diagnosis: Problems: (1) Anxiety disorder (2) Dementia, vascular, with depression (3) Dementia, vascular, with delusions (4) Dementia in Alzheimer's disease with depression (5) Dementia in Alzheimer's disease with delusions (6) Impulse control disorder (7) E-coli UTI SON POLO MD Sep 07, 2018 06:23
[2018-09-07] MEDS: FLUVOXAMINE MALEATE 25 MG TABLET PO SCH (09:07)
[2018-09-07] MEDS: prednisoLONE ACETATE 1% OPHTH SUSPENSION 5ML BOTTLE. OS SCH ×2 (09:07→20:14)
[2018-09-07] MEDS: DORZOLAMIDE 2% OPHTH SOLUTION 10ML BOTTLE. OU SCH ×2 (09:07→20:14)
[2018-09-07] MEDS: DONEPEZIL HCL 10 MG TABLET PO SCH (09:08)
[2018-09-07] MEDS: DIVALPROEX 125 MG CAP.SPRINK PO SCH ×2 (09:08→20:14)
[2018-09-07] MEDS: LACTOBACILLUS RHAMNOSUS GG 1 CAPSULE. PO SCH ×2 (09:08→20:15)
[2018-09-07] MEDS: GLIMEPIRIDE 2 MG TABLET PO SCH (09:08)
[2018-09-07] MEDS: metFORMIN 500 MG TABLET PO SCH ×2 (09:08→16:21)
[2018-09-07] MEDS: ASPIRIN 81 MG TAB.CHEW PO SCH (09:08)
[2018-09-07] MEDS: CHOLECALCIFEROL (VITAMIN D3) 1,000 UNIT TABLET PO SCH (09:08)
[2018-09-07] MEDS: NYSTATIN 100,000 UNIT/GM TOPICAL CREAM 15GM TUBE. TP SCH ×2 (09:08→20:14)
[2018-09-07 11:14] VITALS: BP 101/66
--- NOTE | 2018-09-07 14:26 | PN ---
DATE: 09/06/2018 SUBJECTIVE: The patient is resting, slightly propped up, sleeping comfortably, in no apparent distress. Nursing staff did not voice any concerns, he had an uneventful night. PHYSICAL EXAMINATION: GENERAL: When I examined him, he looked well and was clearly in no apparent distress state. No jaundice, cyanosis or thyromegaly. No jugular venous distention. No limb edema. VITAL SIGNS: Her heart rate was 75, blood pressure 111/72, temperature was 98.3, respiratory rate was 20, and oxygen saturation was 97%. HEAD, EYES, EARS, NOSE AND THROAT: Normocephalic, atraumatic. NECK: Supple. HEART: Showed normal first and second heart sounds. No gallop, rub or murmur. CHEST: Clear to auscultation. No crepitation or rhonchi. ABDOMEN: Distended, soft, nontender. No guarding or rigidity. No organomegaly. All hernial orifice intact. Bowel sounds normal. NEUROLOGIC: He is demented, but without any obvious lateralizing sign. His intake over the last 24 hours was 1135, no output is recorded. LABORATORY DATA: As of this morning showed a white cell count 9700, hemoglobin 11.8, hematocrit 37.5, MCV 95, and platelet count of 138,000. His serum sodium was 140, potassium 3.9, chloride 106, bicarbonate 25, anion gap of 9, BUN 19, creatinine 0.9, estimated GFR was 79 mL per minute. His glucose was 87. Calcium was 9.1. Total bilirubin, AST, ALT, alkaline phosphatase were normal. Total protein was 6.3, albumin 3. His nasal screen for MRSA by PCR was positive. ASSESSMENT: 1. Extended spectrum beta lactamase Escherichia coli urinary tract infection for which he is on IV meropenem. 2. The patient is also positive for MRSA in his nares. 3. He has multiple other medical problems including: A. Hypertension. B. Hyperlipidemia. C. Hypothyroidism. D. Type 2 diabetes mellitus. E. Glaucoma. F. Abdominal aortic aneurysm. PLAN: To continue with the IV meropenem. Continue with glimepiride as well as metformin. I would consult Dr. Levy to continue following him here. MORENITA PONCE MD DR: SWAPNIL/efra JOB#: [id number] / [id number]
[2018-09-07 14:44] VITALS: BP 112/70
--- NOTE | 2018-09-07 17:50 | PDOC ---
Exam Note: Sid Note: Please also refer to the separate dictated note~for this date of service dictated separately.~Patient seen individually. Discussed the patient with Nursing staff reviewed the chart.~Reviewed interim history and current functioning. Reviewed vital signs,~Labs/ Radiology~and current medications noted below. Continue current treatment with the changes noted in the dictated addendum note Assessment: Vital Signs/I&O: Vital Signs Date Time Temp Pulse Resp B/P (MAP) Pulse Ox O2 Delivery O2 Flow Rate FiO2 09/07/18 14:44 98.7 92 20 112/70 (84) 95 Room Air I & O 09/06/18 09/06/18 09/07/18 15:00 23:00 07:00 Intake Total 220 ml 1005.08 ml 0 ml Balance 220 ml 1005.08 ml 0 ml Labs: Laboratory Tests Test 09/07/18 07:23 09/07/18 11:26 09/07/18 16:30 Glucose (Fingerstick) 97 mg/dL (70-99) 116 mg/dL (70-99) H 66 mg/dL (70-99) L Current Medications: I have reviewed the current psychotropics carefully including drug interactions. Risk benefit ratio favors no change other than as noted in my dictated progress note. Diagnosis: Problems: (1) Impulse control disorder (2) Dementia in Alzheimer's disease with delusions (3) Dementia in Alzheimer's disease with depression (4) Dementia, vascular, with delusions (5) Dementia, vascular, with depression (6) Anxiety disorder (7) E-coli UTI SON POLO MD Sep 07, 2018 17:50
[2018-09-07] MEDS: MIRTAZAPINE 15 MG TABLET PO SCH (20:15)
[2018-09-07] MEDS: traZODone 50 MG TABLET. PO PRN (20:15)
[2018-09-07] MEDS: SIMVASTATIN 20 MG TABLET PO SCH (20:15)
[2018-09-07 21:15] VITALS: BP 121/85
--- NOTE | 2018-09-07 23:55 | PN ---
DATE: 09/06/2018 PSYCHIATRIC PROGRESS NOTE This late entry 09/06/2018, covers elements not covered in my initial note 09/06/2018. SUBJECTIVE: I met with the patient in the evening of 09/06/2018. Briefly, the patient is an 88-year-old male seen in room 125, [address] [place] [address] for a psychiatric consult on account of his repetitive yelling, calling out, disruptive, anxious, behaviors within the context of his dementia and the UTI. [facility] being [facility] for his agitation, mood lability and is significantly demented. He developed a UTI, needing IV meropenem and was transferred to [address] [place] [address]. I have been asked to follow him on [address] [place] [address] Medical/Surgical floor due to his marked agitation, mood lability. REVIEW OF SYSTEMS: I met with him in his room. Ambulation impaired. No CV, , pulmonary, eye, ENT system symptoms on review. MENTAL STATUS EXAM: Oriented to himself. Insight, judgment, recent and remote memory, attention, concentration, fund of knowledge poor, consistent with his diagnosis. IMPRESSION: Major neurocognitive disorder, Alzheimer, vascular with delusion, depression, behavioral disturbance; anxiety disorder, unspecified; impulse control disorder, unspecified; urinary tract infection. Rest unchanged from previous notes. PLAN: I have discussed with nursing staff to use the Zyprexa p.r.n. I have reviewed the medication administration record. Continue rest of the psychotropics for now. If behavioral dyscontrol persists despite resolution of UTI, we may have to admit him back to the [facility] for further stabilization. MAN Shelbie POLO MD DR: CARL/efra JOB#: [id number] / [id number]
[2018-09-08 05:33] VITALS: BP 95/57
[2018-09-08] MEDS: MEROPENEM 1 GM in IV NORMAL SALINE 100ML 100 ML IV SCH (05:33)
[2018-09-08] MEDS: LEVOTHYROXINE 175 MCG TABLET PO SCH (05:33)
[2018-09-08] MEDS: ASPIRIN 81 MG TAB.CHEW PO SCH (08:06)
[2018-09-08] MEDS: LACTOBACILLUS RHAMNOSUS GG 1 CAPSULE. PO SCH (08:06)
[2018-09-08] MEDS: CHOLECALCIFEROL (VITAMIN D3) 1,000 UNIT TABLET PO SCH (08:06)
[2018-09-08] MEDS: metFORMIN 500 MG TABLET PO SCH (08:06)
[2018-09-08] MEDS: DONEPEZIL HCL 10 MG TABLET PO SCH (08:06)
[2018-09-08] MEDS: GLIMEPIRIDE 2 MG TABLET PO SCH (08:06)
[2018-09-08] MEDS: NYSTATIN 100,000 UNIT/GM TOPICAL CREAM 15GM TUBE. TP SCH (08:07)
[2018-09-08] MEDS: DIVALPROEX 125 MG CAP.SPRINK PO SCH (08:07)
[2018-09-08] MEDS: FLUVOXAMINE MALEATE 25 MG TABLET PO SCH (08:07)
[2018-09-08] MEDS: DORZOLAMIDE 2% OPHTH SOLUTION 10ML BOTTLE. OU SCH (08:07)
[2018-09-08] MEDS: prednisoLONE ACETATE 1% OPHTH SUSPENSION 5ML BOTTLE. OS SCH (08:07)
[2018-09-08 11:44] VITALS: BP 120/88
--- NOTE | 2018-09-08 12:01 | PN ---
DATE: 09/07/2018 SUBJECTIVE: The patient is sitting comfortably in his wheelchair, in no apparent distress. 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 He continues to be on IV meropenem for his extended spectrum beta-lactamase Escherichia coli infection. PHYSICAL EXAMINATION: GENERAL: When I examined him this afternoon, he looked pale, but no jaundice, cyanosis, or thyromegaly. No jugular venous distension. No limb edema. VITAL SIGNS: His heart rate was 92, blood pressure was 112/70, temperature was 98.7, respiratory rate was 20, and oxygen saturation was 95%. HEAD, EYES, EARS, NOSE AND THROAT: Showed normocephalic, atraumatic. NECK: Supple. HEART: Showed normal first and second heart sounds with no gallop, rub or murmur. CHEST: Clear to auscultation. No crepitation or rhonchi. ABDOMEN: Distended, soft, nontender. NEUROLOGIC: He is demented, but without any obvious lateralizing sign. All his cranial nerves intact. He moves extremities to greater than lower extremities, mostly bed bound and chair bound. His intake over the last 24 hours was 1225, no output was recorded. LABORATORY DATA: His lab work as of yesterday showed his white cell count was 9700, hemoglobin 12, hematocrit 37, MCV 95, and platelet count of 138,000. His serum sodium 140, potassium 3.9, chloride 106, bicarbonate 25, anion gap of 9, BUN 19, creatinine 0.9. ASSESSMENT: 1. Extended spectrum beta-lactamase Escherichia coli urinary tract infection for which he is on IV meropenem. 2. The patient is also positive for MRSA in his nares. 3. Multiple other medical problems including: A. Hypertension. B. Hyperlipidemia. C. Hypothyroidism. D. Type 2 diabetes mellitus. E. Glaucoma. F. Abdominal aortic aneurysm. PLAN: To continue with IV meropenem. Continue with glimepiride as well as metformin. Continue to monitor his blood sugar and he probably can be discharged back to [facility] if he continues to qualify tomorrow. MORENITA PONCE MD DR: SWAPNIL/efra JOB#: [id number] / [id number]
--- NOTE | 2018-09-09 05:01 | PN ---
DATE: 09/07/2018 PSYCHIATRIC PROGRESS NOTE This late entry 09/07/2018 covers elements not covered in my initial note. SUBJECTIVE: I met with the patient in the evening of 09/07/2018. Earlier in the day, discussed with nursing staff and with Mary Duarte, bed placement coordinator with a plan to transition the [facility] once he was medically stable from his UTI, on meropenem per Dr. Mayo. Plan was to transition on 09/07/2018, but Dr. Mayo is extending the antibiotic for another 24 hours and we may have to consider this on 09/08/2018. Per nursing report, he remains somewhat anxious, restless, does redirect and uses Zyprexa p.r.n. REVIEW OF SYSTEMS: No CV, , pulmonary, eye, ENT system symptoms on review. Reliability poor. MENTAL STATUS EXAM: Oriented to himself. Insight, judgment, recent and remote memory, attention, concentration, fund of knowledge poor, consistent with his diagnosis. When questioned, he stated "____ is losing it." He is aware of some of his memory deficits. LABORATORY DATA: Reviewed. IMPRESSION: Unchanged from initial note. PLAN: No change from initial note and if behavioral dyscontrol persists, we will transition back to [facility] on 09/08/2018. MAN Shelbie POLO MD DR: CARL/efra JOB#: [id number] / [id number]
--- NOTE | 2018-09-09 13:12 | CONS ---
DATE OF CONSULTATION: 09/08/2018 ATTENDING PHYSICIAN: Dr. Mayo. FINAL DISCHARGE DIAGNOSES: 1. Urinary tract infection, multidrug resistant organism with extended spectrum beta lactamase production. 2. Severe dementia. 3. Aggressive behavior. 4. History of abdominal aortic aneurysm repair. 5. Hypertension. 6. Hyperlipidemia. 7. Hypothyroidism, on replacement. 8. Type 2 diabetes. 9. History of glaucoma. HISTORY OF PRESENT ILLNESS: This is an 88-year-old gentleman who is well known to us. He has been at the [facility] for the last 3 weeks. He has some urinary tract symptoms and urine culture grew out greater than 100,000 colonies of multidrug resistant to E.coli and an extended spectrum beta lactamase producer director. He was transferred here for intravenous antibiotics in the form of meropenem. He is profoundly demented. He had been quite psychotic, threatened to kill people. He had been followed and I had seen him earlier last month on the [facility]. PHYSICAL EXAMINATION: Please see the dictated note. PERTINENT LABORATORY AND X-RAY STUDIES: Urine specimen grew out E. coli with multi-resistant drug sensitivity. It was sensitive to meropenem. Hemoglobin was 12.6 g/dL with white count of 9700. Chemistry panel showed a nonfasting blood sugar of 116, sodium 140 mEq, potassium 3.9 mEq, creatinine 0.9 mg/dL. COURSE IN HOSPITAL: The patient was admitted. Symptoms were mild. In the ED, he remained confused. He was treated with 4 days of intravenous meropenem with marked improvement. He remained very confused and required significant help. On the fifth hospital day of this admission, the patient was discharged from our acute floor back to the [facility]. PLAN: I will recommend no antibiotics at this time. He should continue his scheduled Zyprexa, prednisolone, Zocor, nystatin, Remeron, Glucophage, Synthroid, Atarax, Amaryl, Luvox, Trusopt eye drops, Aricept, Depakote, aspirin. Doses are unchanged. For now, I took the liberty of stopping his trazodone, vitamin D and Tylenol orders. His prognosis is guarded. He was discharged from our hospital in stable condition with assistance regarding followup care. DAMARIS GARG MD DR: EMMA/efra JOB#: [id number] / [id number] MORENITA Cheng MD
== END 2018-09-08 12:58 | DRG 690 ==
LOC: 1 SOUTH 18:10
PROVIDERS: ADMIT Internal Medicine; ATTEND Internal Medicine
DX: N39.0 Urinary tract infection, site not specified (principal); F02.80 Dementia in other diseases classified elsewhere, unspecified severity, without behavioral disturbance, psychotic disturbance, mood disturbance, and anxiety; E11.9 Type 2 diabetes mellitus without complications; E78.5 Hyperlipidemia, unspecified; F01.50 Vascular dementia, unspecified severity, without behavioral disturbance, psychotic disturbance, mood disturbance, and anxiety; E03.9 Hypothyroidism, unspecified; I10 Essential (primary) hypertension; Z16.12 Extended spectrum beta lactamase (ESBL) resistance; Z16.24 Resistance to multiple antibiotics; B96.20 Unspecified Escherichia coli [E. coli] as the cause of diseases classified elsewhere; F32.9 Major depressive disorder, single episode, unspecified; F41.9 Anxiety disorder, unspecified; F63.9 Impulse disorder, unspecified; G30.9 Alzheimer's disease, unspecified; H40.9 Unspecified glaucoma; N40.0 Benign prostatic hyperplasia without lower urinary tract symptoms; Z88.0 Allergy status to penicillin; Z79.899 Other long term (current) drug therapy; Z79.84 Long term (current) use of oral hypoglycemic drugs; Z22.322 Carrier or suspected carrier of Methicillin resistant Staphylococcus aureus; Z79.82 Long term (current) use of aspirin
CPT/HCPCS: 36415; 80048; 80053; 82947; 85007; 85025; 87641; J2185; 97110; 97116

== ENCOUNTER 2018-09-08 12:05 | Inpatient (IN) | payer MEDICARE, OTHER ==
[~2018-09-08] VITALS: Ht 182.9 cm; Wt 87.3 kg
[~2018-09-08 12:05] MED LIST changes: +DIVA125C2 PO; +DONE10TA61 PO; +FLUV50TA2 PO; +GLIM2TAB PO; +HYDR25TA PO; +LACT1CAP21 PO; +MAG355OR17 PO; +MAGN2400 PO; +METH29OI TP; +MIRT15TA PO; +OLAN5TAB5 PO; +PRED5DRO16 LEFTEYE
[2018-09-08 14:01] VITALS: BP 108/72
[2018-09-08] MEDS ORDERED: MAG HYDROX/AL HYDROX/SIMETH 30 ML ORAL.SUSP PO PRN (14:45)
[2018-09-08] MEDS ORDERED: METHYL SALICYLATE/MENTHOL TOPICAL OINTMENT 29GM TUBE. TP PRN (14:45)
[2018-09-08] MEDS ORDERED: MAGNESIUM HYDROXIDE 2,400 MG/30 ML ORAL.SUSP. PO PRN (14:45)
[2018-09-08] MEDS: metFORMIN 500 MG TABLET PO SCH (17:30)
[2018-09-08] MEDS: SIMVASTATIN 20 MG TABLET PO SCH (20:24)
[2018-09-08] MEDS: DORZOLAMIDE 2% OPHTH SOLUTION 10ML BOTTLE. OU SCH (20:25)
[2018-09-08] MEDS: MIRTAZAPINE 15 MG TABLET PO SCH (20:25)
[2018-09-08] MEDS: DIVALPROEX 125 MG CAP.SPRINK PO SCH (20:25)
[2018-09-08] MEDS: prednisoLONE ACETATE 1% OPHTH SUSPENSION 5ML BOTTLE. OS SCH (20:25)
--- NOTE | 2018-09-08 22:16 | PDOC ---
Exam Note: Sid Note: Please also refer to the separate dictated note~for this date of service dictated separately.Discussed the patient with Nursing staff reviewed the chart.~Reviewed interim history and current functioning. Reviewed vital signs,~Labs/ Radiology~and current medications noted below. Continue current treatment with the changes noted in the dictated addendum note Assessment: Vital Signs/I&O: Vital Signs Date Time Temp Pulse Resp B/P (MAP) Pulse Ox O2 Delivery O2 Flow Rate FiO2 09/08/18 14:01 98.7 90 16 108/72 (84) 99 Current Medications: Meds: Current Medications Medications (Trade) Dose Ordered Sig/Clint Route PRN Reason Start Time Stop Time Status Last Admin Dose Admin Prednisolone Acetate (Pred Forte) 1 drop BID OS 09/08/18 21:00 09/08/18 20:25 Divalproex Sodium (Depakote Sprinkles) 500 mg QHS PO 09/08/18 21:00 09/08/18 20:25 Dorzolamide HCl (Trusopt) 1 drop BID OU 09/08/18 21:00 09/08/18 20:25 Fluvoxamine Maleate (Luvox) 75 mg DAILY PO 09/08/18 16:00 09/08/18 20:24 Metformin HCl (Glucophage) 1,000 mg BIDWMEALS PO 09/08/18 17:00 09/08/18 17:30 Mirtazapine (Remeron) 15 mg QHS PO 09/08/18 21:00 09/08/18 20:25 Simvastatin (Zocor) 20 mg HS PO 09/08/18 21:00 09/08/18 20:24 I have reviewed the current psychotropics carefully including drug interactions. Risk benefit ratio favors no change other than as noted in my dictated progress note. Diagnosis: Problems: (1) Anxiety disorder (2) Dementia, vascular, with depression (3) Dementia, vascular, with delusions (4) Dementia in Alzheimer's disease with depression (5) Dementia in Alzheimer's disease with delusions (6) Impulse control disorder (7) Major neurocognitive disorder SON POLO MD Sep 08, 2018 22:16
[2018-09-09 05:50] VITALS: BP 125/66
[2018-09-09] MEDS: LEVOTHYROXINE 175 MCG TABLET PO SCH (05:56)
[2018-09-09] MEDS: prednisoLONE ACETATE 1% OPHTH SUSPENSION 5ML BOTTLE. OS SCH ×2 (07:54→22:19)
[2018-09-09] MEDS: DONEPEZIL HCL 10 MG TABLET PO SCH (07:54)
[2018-09-09] MEDS: DORZOLAMIDE 2% OPHTH SOLUTION 10ML BOTTLE. OU SCH ×2 (07:54→22:19)
[2018-09-09] MEDS: DIVALPROEX 125 MG CAP.SPRINK PO SCH ×2 (07:54→19:14)
[2018-09-09] MEDS: GLIMEPIRIDE 2 MG TABLET PO SCH (07:54)
[2018-09-09] MEDS: ASPIRIN ENTERIC COATED 81 MG TABLET.DR. PO SCH (07:54)
[2018-09-09] MEDS: metFORMIN 500 MG TABLET PO SCH ×2 (07:54→17:00)
--- NOTE | 2018-09-09 14:30 | PN ---
DATE: 09/09/2018 ATTENDING PHYSICIAN: Dr. Levy. SUBJECTIVE: No new complaints. (I am not worth a dime). OBJECTIVE FINDINGS: GENERAL: The patient is ambulating independently in a wheelchair. He is pleasantly confused. VITAL SIGNS: His blood pressure is 125/66 mmHg. He is afebrile, pulse is 80 and regular. HEENT: Head is without trauma. Pupils are reactive. Sclerae are nonicteric. The oropharynx is clear. NECK: Supple. LUNGS: Clear. CARDIOVASCULAR: Showed regular heart tones. No obvious gallops. Peripheral pulses are palpable. ABDOMEN: Soft. EXTREMITIES: Showed trace edema. NEUROLOGIC: Pleasantly confused. Affect is very surly. LABORATORY DATA: Reviewed from yesterday. I just discharged him from the acute floor. ASSESSMENT: 1. An 88-year-old gentleman with profound dementia. 2. Recent diagnosis of urinary tract infection with multidrug resistant Escherichia coli. 3. Hyperlipidemia. 4. Type 2 diabetes. 5. Dementia with agitation and aggressive behavior. PLAN AND RECOMMENDATIONS: 1. This gentleman is medically stable. I just discharged him from the acute floor yesterday. 2. Meds were reviewed. 3. Diet as tolerated. 4. We shall follow along closely as before. Thank you again for asking us to see this patient in consultation. DAMARIS GARG MD DR: EMMA/efra JOB#: [id number] / [id number]
[2018-09-09 15:36] VITALS: BP 116/69
[2018-09-09] MEDS: ACETAMINOPHEN 325 MG TABLET PO PRN (18:29)
[2018-09-09] MEDS: MIRTAZAPINE 15 MG TABLET PO SCH (19:13)
[2018-09-09] MEDS: SIMVASTATIN 20 MG TABLET PO SCH (19:14)
[2018-09-09] MEDS: traZODone 50 MG TABLET. PO PRN (19:16)
--- NOTE | 2018-09-09 22:40 | PDOC ---
Exam Note: Sid Note: Please also refer to the separate dictated note~for this date of service dictated separately.~Patient seen individually. Discussed the patient with Nursing staff reviewed the chart.~Reviewed interim history and current functioning. Reviewed vital signs,~Labs/ Radiology~and current medications noted below. Continue current treatment with the changes noted in the dictated addendum note Assessment: Vital Signs/I&O: Vital Signs Date Time Temp Pulse Resp B/P (MAP) Pulse Ox O2 Delivery O2 Flow Rate FiO2 09/09/18 15:36 97.2 98 18 116/69 (85) 100 Room Air I & O 09/08/18 09/08/18 09/09/18 14:59 22:59 06:59 Intake Total 360 ml Balance 360 ml Current Medications: Meds: Current Medications Medications (Trade) Dose Ordered Sig/Clint Route PRN Reason Start Time Stop Time Status Last Admin Dose Admin Levothyroxine Sodium (Synthroid) 175 mcg DAILY06 PO 09/09/18 06:00 09/09/18 05:56 Aspirin (Aspirin Enteric Coated) 81 mg DAILYWBKFT PO 09/09/18 08:00 09/09/18 07:54 Divalproex Sodium (Depakote Sprinkles) 375 mg DAILY PO 09/09/18 09:00 09/09/18 07:54 Donepezil HCl (Aricept) 10 mg DAILY PO 09/09/18 09:00 09/09/18 07:54 Glimepiride (Amaryl) 2 mg DAILY PO 09/09/18 09:00 09/09/18 07:54 I have reviewed the current psychotropics carefully including drug interactions. Risk benefit ratio favors no change other than as noted in my dictated progress note. Diagnosis: Problems: (1) Anxiety disorder (2) Dementia, vascular, with depression (3) Dementia, vascular, with delusions (4) Dementia in Alzheimer's disease with depression (5) Dementia in Alzheimer's disease with delusions (6) Impulse control disorder (7) E-coli UTI (8) Major neurocognitive disorder SON POLO MD Sep 09, 2018 22:40
[2018-09-10 05:46] VITALS: BP 133/75
[2018-09-10] MEDS: LEVOTHYROXINE 175 MCG TABLET PO SCH (06:07)
[2018-09-10 07:11] LABS: VAL ACID 20 mcg/mL (50-100)
[2018-09-10] MEDS: ASPIRIN ENTERIC COATED 81 MG TABLET.DR. PO SCH (07:29)
[2018-09-10] MEDS: metFORMIN 500 MG TABLET PO SCH ×3 (07:30→17:00)
[2018-09-10] MEDS: DIVALPROEX 125 MG CAP.SPRINK PO SCH ×2 (07:31→19:46)
[2018-09-10] MEDS: DONEPEZIL HCL 10 MG TABLET PO SCH (07:31)
[2018-09-10] MEDS: GLIMEPIRIDE 2 MG TABLET PO SCH (07:31)
[2018-09-10] MEDS: DORZOLAMIDE 2% OPHTH SOLUTION 10ML BOTTLE. OU SCH ×2 (07:35→19:48)
[2018-09-10] MEDS: prednisoLONE ACETATE 1% OPHTH SUSPENSION 5ML BOTTLE. OS SCH ×2 (09:42→19:47)
[2018-09-10 16:00] VITALS: BP 136/81
[2018-09-10] MEDS: MIRTAZAPINE 15 MG TABLET PO SCH (19:46)
[2018-09-10] MEDS: SIMVASTATIN 20 MG TABLET PO SCH (19:46)
--- NOTE | 2018-09-10 22:13 | PDOC ---
Exam Note: Sid Note: Please also refer to the separate dictated note~for this date of service dictated separately.~Patient seen individually. Discussed the patient with Nursing staff reviewed the chart.~Reviewed interim history and current functioning. Reviewed vital signs,~Labs/ Radiology~and current medications noted below. Continue current treatment with the changes noted in the dictated addendum note Assessment: Vital Signs/I&O: Vital Signs Date Time Temp Pulse Resp B/P (MAP) Pulse Ox O2 Delivery O2 Flow Rate FiO2 09/10/18 16:00 97.8 116 18 136/81 (99) 96 09/10/18 05:46 Room Air I & O 09/09/18 09/09/18 09/10/18 14:59 22:59 06:59 Intake Total 480 ml 120 ml 120 ml Output Total 300 ml Balance 480 ml 120 ml -180 ml Labs: Laboratory Tests Test 09/10/18 06:12 09/10/18 17:16 Ammonia 10 mcmol/L (11-34) L Valproic Acid Level 20 mcg/mL (50-100) L Valproic Acid Last Dose Date 09/09/18 Valproic Acid Last Dose Time 1930 Glucose (Fingerstick) 68 mg/dL (70-99) L Current Medications: Meds: Current Medications Medications (Trade) Dose Ordered Sig/Clint Route PRN Reason Start Time Stop Time Status Last Admin Dose Admin Fluvoxamine Maleate (Luvox) 100 mg DAILY PO 09/10/18 09:00 09/10/18 07:33 I have reviewed the current psychotropics carefully including drug interactions. Risk benefit ratio favors no change other than as noted in my dictated progress note. Diagnosis: Problems: (1) Anxiety disorder (2) Dementia, vascular, with depression (3) Dementia, vascular, with delusions (4) Dementia in Alzheimer's disease with depression (5) Dementia in Alzheimer's disease with delusions (6) Impulse control disorder (7) Major neurocognitive disorder SON POLO MD Sep 10, 2018 22:13
[2018-09-11] MEDS: LEVOTHYROXINE 175 MCG TABLET PO SCH (05:12)
[2018-09-11 05:56] VITALS: BP 99/58
[2018-09-11] MEDS: ACETAMINOPHEN 325 MG TABLET PO PRN (06:26)
[2018-09-11 07:18] LABS: ALBUMIN 2.8 g/dL (3.4-5.0); ALBUMIN/GLOBULIN RATIO 0.8 (1.0-1.7); CALCIUM 9.1 mg/dL (8.5-10.1); CREATININE 0.7 mg/dL (0.7-1.3); GFR 106.2; POTASSIUM 3.9 mmol/L (3.5-5.1); TOTAL BILIRUBIN 0.3 mg/dL (0.2-1.0); TOTAL PROTEIN 6.2 g/dL (6.4-8.2)
[2018-09-11 07:26] LABS: BASO % 1 % (0-3); EOS # 0.5 x10^3/uL (0.0-0.7); EOS % 5 % (0-3); HEMOGLOBIN 10.7 g/dL (13.0-17.5); LYMPH # 1.5 x10^3/uL (1.0-4.8); LYMPH % 17 % (24-48); MEAN CORPUSCULAR HEMOGLOBIN 30 pg (25-35); MEAN CORPUSCULAR HGB CONC 33 g/dL (31-37); MEAN CORPUSCULAR VOLUME 92 fL (79-100); MONO % 11 % (0-9); NEUT # 5.5 x10^3uL (1.8-7.7); NEUT % 66 % (31-73); PLATELET COUNT 163 x10^3/uL (140-400); RED BLOOD COUNT 3.57 x10^6/uL (4.30-5.70); RED CELL DISTRIBUTION WIDTH 13.8 % (11.5-14.5); WHITE BLOOD COUNT 8.5 x10^3/uL (4.0-11.0)
[2018-09-11] MEDS: metFORMIN 500 MG TABLET PO SCH ×2 (07:37→17:00)
[2018-09-11] MEDS: ASPIRIN ENTERIC COATED 81 MG TABLET.DR. PO SCH (07:37)
[2018-09-11] MEDS: DORZOLAMIDE 2% OPHTH SOLUTION 10ML BOTTLE. OU SCH ×2 (07:38→19:51)
[2018-09-11] MEDS: DONEPEZIL HCL 10 MG TABLET PO SCH (07:38)
[2018-09-11] MEDS: GLIMEPIRIDE 2 MG TABLET PO SCH (07:38)
[2018-09-11] MEDS: prednisoLONE ACETATE 1% OPHTH SUSPENSION 5ML BOTTLE. OS SCH ×2 (07:38→19:50)
[2018-09-11] MEDS: DIVALPROEX 125 MG CAP.SPRINK PO SCH ×2 (07:38→19:50)
[2018-09-11 08:51] VITALS: BP 91/58
[2018-09-11 09:04] LABS: % ATYL 1 % (0-0); % BANDS 1 % (0-9); % EOS 5 % (0-5); % LYMPHS 19 % (24-48); % METAS 1 % (0-0); % MONOS 9 % (0-10); % SEGS 64 % (35-66); PLT ESTIMATE ADEQUATE (ADEQUATE)
[2018-09-11 13:19] VITALS: BP 119/88
[2018-09-11 15:30] VITALS: BP 115/67
[2018-09-11 16:04] VITALS: BP 115/67
[2018-09-11] MEDS: SIMVASTATIN 20 MG TABLET PO SCH (19:50)
[2018-09-11] MEDS: MIRTAZAPINE 15 MG TABLET PO SCH (19:50)
[2018-09-11 20:50] LABS: CLARITY,URINE HAZY; COLOR,URINE AMBER
[2018-09-11 20:51] LABS: BACTERIA,URINE 0 /HPF (0-FEW); BILIRUBIN,URINE NEG (NEG); GLUCOSE,URINE NEG (NEG); NITRITE,URINE NEG (NEG); RBC,URINE 0 /HPF (0-2); SQUAMOUS EPITHELIAL CELL,UR OCC /LPF; UROBILINOGEN,URINE 1 mg/dL (0.2 mg/dL); WBC,URINE 0 /HPF (0-4)
--- NOTE | 2018-09-11 22:21 | PDOC ---
Exam Note: Sid Note: Please also refer to the separate dictated note~for this date of service dictated separately.~Patient seen individually. Discussed the patient with Nursing staff reviewed the chart.~Reviewed interim history and current functioning. Reviewed vital signs,~Labs/ Radiology~and current medications noted below. Continue current treatment with the changes noted in the dictated addendum note Assessment: Vital Signs/I&O: Vital Signs Date Time Temp Pulse Resp B/P (MAP) Pulse Ox O2 Delivery O2 Flow Rate FiO2 09/11/18 16:04 98.2 108 18 115/67 (83) 98 09/10/18 05:46 Room Air I & O 09/10/18 09/10/18 09/11/18 15:00 23:00 07:00 Intake Total 720 ml 240 ml Balance 720 ml 240 ml Labs: Laboratory Tests Test 09/11/18 06:11 09/11/18 16:54 09/11/18 20:30 White Blood Count 8.5 x10^3/uL (4.0-11.0) Red Blood Count 3.57 x10^6/uL (4.30-5.70) L Hemoglobin 10.7 g/dL (13.0-17.5) L Hematocrit 33.0 % (39.0-53.0) L Mean Corpuscular Volume 92 fL (79-100) Mean Corpuscular Hemoglobin 30 pg (25-35) Mean Corpuscular Hemoglobin Concent 33 g/dL (31-37) Red Cell Distribution Width 13.8 % (11.5-14.5) Platelet Count 163 x10^3/uL (140-400) Neutrophils (%) (Auto) 66 % (31-73) Lymphocytes (%) (Auto) 17 % (24-48) L Monocytes (%) (Auto) 11 % (0-9) H Eosinophils (%) (Auto) 5 % (0-3) H Basophils (%) (Auto) 1 % (0-3) Neutrophils # (Auto) 5.5 x10^3uL (1.8-7.7) Lymphocytes # (Auto) 1.5 x10^3/uL (1.0-4.8) Monocytes # (Auto) 1.0 x10^3/uL (0.0-1.1) Eosinophils # (Auto) 0.5 x10^3/uL (0.0-0.7) Basophils # (Auto) 0.0 x10^3/uL (0.0-0.2) Segmented Neutrophils % 64 % (35-66) Band Neutrophils % 1 % (0-9) Lymphocytes % 19 % (24-48) L Atypical Lymphocytes % (Manual) 1 % (0-0) H Monocytes % 9 % (0-10) Eosinophils % 5 % (0-5) Metamyelocytes % 1 % (0-0) H Platelet Estimate Adequate (ADEQUATE) Sodium Level 142 mmol/L (136-145) Potassium Level 3.9 mmol/L (3.5-5.1) Chloride Level 107 mmol/L (98-107) Carbon Dioxide Level 29 mmol/L (21-32) Anion Gap 6 (6-14) Blood Urea Nitrogen 16 mg/dL (8-26) Creatinine 0.7 mg/dL (0.7-1.3) Estimated GFR (Cockcroft-Gault) 106.2 BUN/Creatinine Ratio 23 (6-20) H Glucose Level 77 mg/dL (70-99) Calcium Level 9.1 mg/dL (8.5-10.1) Total Bilirubin 0.3 mg/dL (0.2-1.0) Aspartate Amino Transferase (AST) 23 U/L (15-37) Alanine Aminotransferase (ALT) 37 U/L (16-63) Alkaline Phosphatase 73 U/L (46-116) Total Protein 6.2 g/dL (6.4-8.2) L Albumin 2.8 g/dL (3.4-5.0) L Albumin/Globulin Ratio 0.8 (1.0-1.7) L Glucose (Fingerstick) 98 mg/dL (70-99) Urine Collection Type Unknown Urine Color Angelita Urine Clarity Hazy Urine pH 5.5 Urine Specific [place] 1.015 Urine Protein Neg (NEG-TRACE) Urine Glucose (UA) Neg mg/dL (NEG) Urine Ketones (Stick) Neg mg/dL (NEG) Urine Blood Neg (NEG) Urine Nitrite Neg (NEG) Urine Bilirubin Neg (NEG) Urine Urobilinogen Dipstick 1 mg/dL (0.2 mg/dL) Urine Leukocyte Esterase Neg (NEG) Urine RBC 0 /HPF (0-2) Urine WBC 0 /HPF (0-4) Urine Squamous Epithelial Cells Occ /LPF Urine Bacteria 0 /HPF (0-FEW) Current Medications: I have reviewed the current psychotropics carefully including drug interactions. Risk benefit ratio favors no change other than as noted in my dictated progress note. Diagnosis: Problems: (1) Anxiety disorder (2) Dementia, vascular, with depression (3) Dementia, vascular, with delusions (4) Dementia in Alzheimer's disease with depression (5) Dementia in Alzheimer's disease with delusions (6) Impulse control disorder (7) Major neurocognitive disorder SON POLO MD Sep 11, 2018 22:21
[2018-09-12] MEDS: LEVOTHYROXINE 175 MCG TABLET PO SCH (05:56)
[2018-09-12 06:18] VITALS: BP 113/59
--- NOTE | 2018-09-12 07:36 | RAD ---
Indication: Fall TECHNIQUE: The left hip joint COMPARISON: None FINDINGS: Bilateral hip joints are symmetric with mild joint space narrowing. Bilateral SI joints are within normal limits. No acute fracture or dislocation. Vascular calcifications. Clinically correlate for symptoms of peripheral arterial disease. IMPRESSION: As above. Electronically signed by: Nash Roy DO (09/12/2018 7:33 AM) [facility]
[2018-09-12] MEDS: GLIMEPIRIDE 2 MG TABLET PO SCH (10:41)
[2018-09-12] MEDS: metFORMIN 500 MG TABLET PO SCH ×2 (10:41→17:00)
[2018-09-12] MEDS: DONEPEZIL HCL 10 MG TABLET PO SCH (10:41)
[2018-09-12] MEDS: DIVALPROEX 125 MG CAP.SPRINK PO SCH ×2 (10:42→20:40)
[2018-09-12] MEDS: ASPIRIN ENTERIC COATED 81 MG TABLET.DR. PO SCH (10:42)
[2018-09-12] MEDS: prednisoLONE ACETATE 1% OPHTH SUSPENSION 5ML BOTTLE. OS SCH ×2 (10:42→20:39)
[2018-09-12] MEDS: DORZOLAMIDE 2% OPHTH SOLUTION 10ML BOTTLE. OU SCH ×2 (10:43→20:39)
[2018-09-12 16:06] VITALS: BP 99/52
--- NOTE | 2018-09-12 19:14 | PN ---
DATE: 09/09/2018 PSYCHIATRIC PROGRESS NOTE This is a late entry 09/09/2018 covers elements not covered in my initial note. SUBJECTIVE: I met with the patient evening of 09/09/2018. The patient slept 7-3/4 hours previous night, somewhat agitated, confused, received Zyprexa x 2, at 3:40 p.m. pulling on doors, anxious, restless. We will check a valproic acid level, ammonia level in the morning of 09/10/2018 as valproic acid level at last check on 09/01/2018 was 45. He remains somewhat obsessive. REVIEW OF SYSTEMS: Ambulation impaired, in wheelchair/walker. No CV, , pulmonary, eye, ENT system symptoms on review. Reliability poor. MENTAL STATUS EXAM: Oriented to himself. Insight, judgment, recent and remote memory, attention, concentration, fund of knowledge poor, consistent with his diagnosis mentioned in my initial note. PLAN: Increase Luvox from 75 mg a day to 100 mg a day. Check labs as above and then adjust the Depakote. Rest unchanged for now. MAN Shelbie POLO MD DR: CARL/efra JOB#: [id number] / [id number]
[2018-09-12] MEDS: SIMVASTATIN 20 MG TABLET PO SCH (20:39)
[2018-09-12] MEDS: MIRTAZAPINE 15 MG TABLET PO SCH (20:39)
--- NOTE | 2018-09-12 22:09 | PDOC ---
Exam Note: Sid Note: Please also refer to the separate dictated note~for this date of service dictated separately.~Patient seen individually. Discussed the patient with Nursing staff reviewed the chart.~Reviewed interim history and current functioning. Reviewed vital signs,~Labs/ Radiology~and current medications noted below. Continue current treatment with the changes noted in the dictated addendum note Assessment: Vital Signs/I&O: Vital Signs Date Time Temp Pulse Resp B/P (MAP) Pulse Ox O2 Delivery O2 Flow Rate FiO2 09/12/18 16:06 98.1 94 18 99/52 (68) 100 09/10/18 05:46 Room Air I & O 09/11/18 09/11/18 09/12/18 14:59 22:59 06:59 Intake Total 240 ml 240 ml Balance 240 ml 240 ml Current Medications: Meds: Current Medications Medications (Trade) Dose Ordered Sig/Clint Route PRN Reason Start Time Stop Time Status Last Admin Dose Admin Divalproex Sodium (Depakote Sprinkles) 500 mg BID PO 09/12/18 21:00 09/12/18 20:40 I have reviewed the current psychotropics carefully including drug interactions. Risk benefit ratio favors no change other than as noted in my dictated progress note. Diagnosis: Problems: (1) Anxiety disorder (2) Dementia, vascular, with depression (3) Dementia, vascular, with delusions (4) Dementia in Alzheimer's disease with depression (5) Dementia in Alzheimer's disease with delusions (6) Impulse control disorder (7) Major neurocognitive disorder SON POLO MD Sep 12, 2018 22:09
--- NOTE | 2018-09-12 23:50 | PN ---
DATE: 09/10/2018 PSYCHIATRIC PROGRESS NOTE This is a late entry 09/10/2018, covers the elements not covered in my initial note. SUBJECTIVE: I met with the patient in the evening of 09/10/2018. The patient slept 6-1/2 hours previous night, has been quiet, somewhat lethargic. Oral intake is poor. Ambulates with a walker. Blood sugar is 68. His daughter and were visiting him and I met with them in his room the evening of 09/11/2018. He has appeared somewhat weaker. Valproic acid level is 20. REVIEW OF SYSTEMS: Ambulation impaired with walker/wheelchair. No CV, , pulmonary, eye, ENT system symptoms on review. MENTAL STATUS EXAM: Oriented to himself. Insight, judgment, recent and remote memory, attention, concentration, fund of knowledge poor, consistent with his diagnosis. IMPRESSION: Major neurocognitive disorder, Alzheimer, vascular with delusion, depression, behavioral disturbance; anxiety disorder, unspecified; impulse control disorder, unspecified. Rest unchanged. PLAN: Check CBC, CMP morning of 09/11/2018. Continue rest of the psychotropics medical management with Dr. Mayo. MAN Shelbie POLO MD DR: CARL/efra JOB#: [id number] / [id number]
--- NOTE | 2018-09-12 23:51 | PN ---
DATE: 09/11/2018 PSYCHIATRIC PROGRESS NOTE This late entry, 09/11, covers elements not covered in my initial note. SUBJECTIVE: I met with the patient the evening of 09/11. The patient has been somewhat flirtatious. He had a good night, but lethargic in the morning, quite irritable, anxious, labile in the evening and I met with him at length in the [facility] where he was placed to remove him from the excessive stimuli in the day room. He did have a fall, complained of left hip pain; we will defer to Dr. Herrera; x-ray has been done. Slept 10 hours previous night. Labs were unremarkable, CBC, CMP. REVIEW OF SYSTEMS: Ambulation impaired, in wheelchair. No CV, , pulmonary, eye, ENT system symptoms on review. Reliability poor. MENTAL STATUS EXAM: Oriented to himself. Insight, judgment, recent and remote memory, attention, concentration, fund of knowledge poor, consistent with his diagnosis mentioned in my initial note. PLAN: No change from initial note for now. We will make sure he does not have any injury consequent to his fall. X-ray hip is awaited. MAN Shelbie POLO MD DR: CARL/efra JOB#: [id number] / [id number]
[2018-09-13] MEDS: LEVOTHYROXINE 175 MCG TABLET PO SCH (06:14)
[2018-09-13 06:31] VITALS: BP 107/59
[2018-09-13] MEDS: DONEPEZIL HCL 10 MG TABLET PO SCH (07:53)
[2018-09-13] MEDS: DIVALPROEX 125 MG CAP.SPRINK PO SCH ×2 (07:53→20:18)
[2018-09-13] MEDS: ASPIRIN ENTERIC COATED 81 MG TABLET.DR. PO SCH (07:53)
[2018-09-13] MEDS: GLIMEPIRIDE 2 MG TABLET PO SCH (07:53)
[2018-09-13] MEDS: DORZOLAMIDE 2% OPHTH SOLUTION 10ML BOTTLE. OU SCH ×2 (07:54→20:18)
[2018-09-13] MEDS: prednisoLONE ACETATE 1% OPHTH SUSPENSION 5ML BOTTLE. OS SCH ×2 (07:54→20:19)
[2018-09-13] MEDS: metFORMIN 500 MG TABLET PO SCH ×2 (07:54→17:03)
[2018-09-13 15:36] VITALS: BP 107/63
[2018-09-13] MEDS: SIMVASTATIN 20 MG TABLET PO SCH (20:18)
[2018-09-13] MEDS: MIRTAZAPINE 15 MG TABLET PO SCH (20:18)
--- NOTE | 2018-09-13 22:11 | PDOC ---
Exam Note: Sid Note: Please also refer to the separate dictated note~for this date of service dictated separately.~Patient seen individually. Discussed the patient with Nursing staff reviewed the chart.~Reviewed interim history and current functioning. Reviewed vital signs,~Labs/ Radiology~and current medications noted below. Continue current treatment with the changes noted in the dictated addendum note Assessment: Vital Signs/I&O: Vital Signs Date Time Temp Pulse Resp B/P (MAP) Pulse Ox O2 Delivery O2 Flow Rate FiO2 09/13/18 15:36 97.4 97 17 107/63 (78) 98 09/10/18 05:46 Room Air I & O 09/12/18 09/12/18 09/13/18 14:59 22:59 06:59 Intake Total 360 ml 480 ml 120 ml Balance 360 ml 480 ml 120 ml Current Medications: I have reviewed the current psychotropics carefully including drug interactions. Risk benefit ratio favors no change other than as noted in my dictated progress note. Diagnosis: Problems: (1) Anxiety disorder (2) Dementia, vascular, with depression (3) Dementia, vascular, with delusions (4) Dementia in Alzheimer's disease with depression (5) Dementia in Alzheimer's disease with delusions (6) Impulse control disorder (7) Major neurocognitive disorder SON POLO MD Sep 13, 2018 22:11
--- NOTE | 2018-09-14 00:05 | PN ---
DATE: 09/12/2018 PSYCHIATRIC PROGRESS NOTE This late entry of 09/12/2018 covers the elements not covered in my initial note. SUBJECTIVE: I met with the patient at length in the evening of 09/12/2018. He slept 8-3/4 hours previous evening. He was compliant with medications in the morning. After lunch, he was yelling at the other patients, had to be in the [facility] and then making statements to one of the other demented patients, "Grave, I love you." Albumin 2.8. Hemoglobin and hematocrit are low and I will defer to Dr. Mayo/Dr. Herrera. Around 3:00 p.m., he became more irritable. X-ray showed no fracture, status post fall. He tries to transfer himself. He can be loud at times. REVIEW OF SYSTEMS: Ambulation impaired, in wheelchair. No CV, , pulmonary, eye system symptoms on review. He has vague somatic symptoms. MENTAL STATUS EXAM: Oriented to himself. Insight, judgment, recent and remote memory, attention, concentration, fund of knowledge poor, consistent with his diagnosis. LABORATORY DATA: Valproic acid level on 09/10/2018 is 20. TREATMENT PLAN: We will increase the Depakote Sprinkles from 500 mg at bedtime to 500 mg twice a day. Check CBC, CMP, valproic acid level in 3 days. Rest unchanged from initial note. MAN Shelbie POLO MD DR: CARL/efra JOB#: [id number] / [id number]
[2018-09-14 06:03] VITALS: BP 121/76
[2018-09-14] MEDS: LEVOTHYROXINE 175 MCG TABLET PO SCH (06:16)
[2018-09-14] MEDS: GLIMEPIRIDE 2 MG TABLET PO SCH (08:09)
[2018-09-14] MEDS: DORZOLAMIDE 2% OPHTH SOLUTION 10ML BOTTLE. OU SCH ×2 (08:09→19:15)
[2018-09-14] MEDS: ASPIRIN ENTERIC COATED 81 MG TABLET.DR. PO SCH (08:09)
[2018-09-14] MEDS: prednisoLONE ACETATE 1% OPHTH SUSPENSION 5ML BOTTLE. OS SCH ×2 (08:09→19:15)
[2018-09-14] MEDS: DONEPEZIL HCL 10 MG TABLET PO SCH (08:09)
[2018-09-14] MEDS: metFORMIN 500 MG TABLET PO SCH ×2 (08:09→17:05)
[2018-09-14] MEDS: DIVALPROEX 125 MG CAP.SPRINK PO SCH ×2 (08:10→19:15)
[2018-09-14 16:17] VITALS: BP 109/71
[2018-09-14] MEDS: SIMVASTATIN 20 MG TABLET PO SCH (19:15)
[2018-09-14] MEDS: MIRTAZAPINE 15 MG TABLET PO SCH (19:15)
[2018-09-14] MEDS: traZODone 50 MG TABLET. PO PRN (19:18)
--- NOTE | 2018-09-14 22:21 | PDOC ---
Exam Note: Sid Note: Please also refer to the separate dictated note~for this date of service dictated separately.~Patient seen individually. Discussed the patient with Nursing staff reviewed the chart.~Reviewed interim history and current functioning. Reviewed vital signs,~Labs/ Radiology~and current medications noted below. Continue current treatment with the changes noted in the dictated addendum note Assessment: Vital Signs/I&O: Vital Signs Date Time Temp Pulse Resp B/P (MAP) Pulse Ox O2 Delivery O2 Flow Rate FiO2 09/14/18 16:17 97.9 63 18 109/71 (84) 94 Room Air I & O 09/13/18 09/13/18 09/14/18 15:00 23:00 07:00 Intake Total 480 ml 0 ml Balance 480 ml 0 ml Current Medications: I have reviewed the current psychotropics carefully including drug interactions. Risk benefit ratio favors no change other than as noted in my dictated progress note. Diagnosis: Problems: (1) Anxiety disorder (2) Dementia, vascular, with depression (3) Dementia, vascular, with delusions (4) Dementia in Alzheimer's disease with depression (5) Dementia in Alzheimer's disease with delusions (6) Impulse control disorder (7) Major neurocognitive disorder SON POLO MD Sep 14, 2018 22:21
[2018-09-14] MEDS ORDERED: ACET325T9 PO (23:03)
[2018-09-14] MEDS ORDERED: DIVA125C2 PO (23:06)
[2018-09-14] MEDS ORDERED: MAG30ORA2 PO (23:08)
[2018-09-14] MEDS ORDERED: MAGN2400 PO (23:08)
[2018-09-14] MEDS ORDERED: METH29OI TP (23:09)
[2018-09-14] MEDS ORDERED: OLAN5TAB5 PO (23:10)
[2018-09-14] MEDS ORDERED: FLUV100T2 PO (23:11)
[2018-09-14] MEDS ORDERED: TRAZ-120 PO (23:13)
[2018-09-15] MEDS: LEVOTHYROXINE 175 MCG TABLET PO SCH (05:54)
[2018-09-15 06:12] VITALS: BP 119/75
[2018-09-15 07:21] LABS: BASO # 0.1 x10^3/uL (0.0-0.2); BASO % 1 % (0-3); EOS # 0.4 x10^3/uL (0.0-0.7); EOS % 5 % (0-3); HEMOGLOBIN 10.7 g/dL (13.0-17.5); LYMPH # 1.6 x10^3/uL (1.0-4.8); LYMPH % 18 % (24-48); MEAN CORPUSCULAR HEMOGLOBIN 30 pg (25-35); MEAN CORPUSCULAR HGB CONC 33 g/dL (31-37); MEAN CORPUSCULAR VOLUME 92 fL (79-100); MONO # 0.9 x10^3/uL (0.0-1.1); MONO % 10 % (0-9); NEUT % 67 % (31-73); PLATELET COUNT 176 x10^3/uL (140-400); RED BLOOD COUNT 3.58 x10^6/uL (4.30-5.70); RED CELL DISTRIBUTION WIDTH 13.8 % (11.5-14.5)
[2018-09-15 08:08] LABS: ALBUMIN 2.9 g/dL (3.4-5.0); ALBUMIN/GLOBULIN RATIO 0.8 (1.0-1.7); ALK PHOS 70 U/L (46-116); ALT (SGPT) 27 U/L (16-63); ANION GAP 11 (6-14); AST (SGOT) 22 U/L (15-37); BLOOD UREA NITROGEN 20 mg/dL (8-26); BUN/CREATININE RATIO 25 (6-20); CALCIUM 9.1 mg/dL (8.5-10.1); CARBON DIOXIDE 27 mmol/L (21-32); CHLORIDE 104 mmol/L (98-107); CREATININE 0.8 mg/dL (0.7-1.3); GLUCOSE 58 mg/dL (70-99); POTASSIUM 3.8 mmol/L (3.5-5.1); SODIUM 142 mmol/L (136-145); TOTAL BILIRUBIN 0.4 mg/dL (0.2-1.0); TOTAL PROTEIN 6.6 g/dL (6.4-8.2); VAL ACID 40 mcg/mL (50-100)
[2018-09-15] MEDS: DONEPEZIL HCL 10 MG TABLET PO SCH (08:18)
[2018-09-15] MEDS: metFORMIN 500 MG TABLET PO SCH (08:18)
[2018-09-15] MEDS: GLIMEPIRIDE 2 MG TABLET PO SCH (08:18)
[2018-09-15] MEDS: ASPIRIN ENTERIC COATED 81 MG TABLET.DR. PO SCH (08:18)
[2018-09-15] MEDS: DORZOLAMIDE 2% OPHTH SOLUTION 10ML BOTTLE. OU SCH (08:19)
[2018-09-15] MEDS: prednisoLONE ACETATE 1% OPHTH SUSPENSION 5ML BOTTLE. OS SCH (08:19)
[2018-09-15] MEDS: DIVALPROEX 125 MG CAP.SPRINK PO SCH (08:19)
--- NOTE | 2018-09-15 18:35 | PDOC ---
Exam Note: Sid Note: Please also refer to the separate dictated note~for this date of service dictated separately.~Patient seen individually. Discussed the patient with Nursing staff reviewed the chart.~Reviewed interim history and current functioning. Reviewed vital signs,~Labs/ Radiology~and current medications noted below. Continue current treatment with the changes noted in the dictated addendum note Assessment: Vital Signs/I&O: Vital Signs Date Time Temp Pulse Resp B/P (MAP) Pulse Ox O2 Delivery O2 Flow Rate FiO2 09/15/18 06:12 97.7 80 16 119/75 (90) 98 Room Air I & O 09/14/18 09/14/18 09/15/18 15:00 23:00 07:00 Intake Total 240 ml 240 ml 240 ml Balance 240 ml 240 ml 240 ml Labs: Laboratory Tests Test 09/15/18 06:50 White Blood Count 9.0 x10^3/uL (4.0-11.0) Red Blood Count 3.58 x10^6/uL (4.30-5.70) L Hemoglobin 10.7 g/dL (13.0-17.5) L Hematocrit 33.0 % (39.0-53.0) L Mean Corpuscular Volume 92 fL (79-100) Mean Corpuscular Hemoglobin 30 pg (25-35) Mean Corpuscular Hemoglobin Concent 33 g/dL (31-37) Red Cell Distribution Width 13.8 % (11.5-14.5) Platelet Count 176 x10^3/uL (140-400) Neutrophils (%) (Auto) 67 % (31-73) Lymphocytes (%) (Auto) 18 % (24-48) L Monocytes (%) (Auto) 10 % (0-9) H Eosinophils (%) (Auto) 5 % (0-3) H Basophils (%) (Auto) 1 % (0-3) Neutrophils # (Auto) 6.0 x10^3uL (1.8-7.7) Lymphocytes # (Auto) 1.6 x10^3/uL (1.0-4.8) Monocytes # (Auto) 0.9 x10^3/uL (0.0-1.1) Eosinophils # (Auto) 0.4 x10^3/uL (0.0-0.7) Basophils # (Auto) 0.1 x10^3/uL (0.0-0.2) Sodium Level 142 mmol/L (136-145) Potassium Level 3.8 mmol/L (3.5-5.1) Chloride Level 104 mmol/L (98-107) Carbon Dioxide Level 27 mmol/L (21-32) Anion Gap 11 (6-14) Blood Urea Nitrogen 20 mg/dL (8-26) Creatinine 0.8 mg/dL (0.7-1.3) Estimated GFR (Cockcroft-Gault) 91.0 BUN/Creatinine Ratio 25 (6-20) H Glucose Level 58 mg/dL (70-99) L Calcium Level 9.1 mg/dL (8.5-10.1) Total Bilirubin 0.4 mg/dL (0.2-1.0) Aspartate Amino Transferase (AST) 22 U/L (15-37) Alanine Aminotransferase (ALT) 27 U/L (16-63) Alkaline Phosphatase 70 U/L (46-116) Total Protein 6.6 g/dL (6.4-8.2) Albumin 2.9 g/dL (3.4-5.0) L Albumin/Globulin Ratio 0.8 (1.0-1.7) L Valproic Acid Level 40 mcg/mL (50-100) L Valproic Acid Last Dose Date 09/14/2018 Valproic Acid Last Dose Time 2100 Current Medications: I have reviewed the current psychotropics carefully including drug interactions. Risk benefit ratio favors no change other than as noted in my dictated progress note. Diagnosis: Problems: (1) Anxiety disorder (2) Dementia, vascular, with depression (3) Dementia, vascular, with delusions (4) Dementia in Alzheimer's disease with depression (5) Dementia in Alzheimer's disease with delusions (6) Impulse control disorder SON POLO MD Sep 15, 2018 18:35
--- NOTE | 2018-09-15 19:17 | PN ---
DATE: 09/13/2018 PSYCHIATRIC PROGRESS NOTE This late entry, 09/13/2018, covers elements not covered in my initial note. SUBJECTIVE: I met with the patient evening of 09/13/2018. The patient slept 6-1/4 hours previous night. He did well in the morning, somewhat agitated in the evening. He received Zyprexa at 1700 hours. [facility]. REVIEW OF SYSTEMS: Ambulation impaired, in wheelchair. No CV, , pulmonary, eye system symptoms on review. MENTAL STATUS EXAM: Oriented to himself. Insight, judgment, recent and remote memory, attention, concentration, fund of knowledge poor, consistent with his diagnosis mentioned in my initial note. PLAN: No change from initial note. He did receive Zyprexa at 1700 hours. We will continue rest of the psychotropics. SON POLO MD DR: CARL/efra JOB#: [id number] / [id number]
--- NOTE | 2018-09-16 02:56 | PN ---
DATE: 09/14/2018 PSYCHIATRIC PROGRESS NOTE This late entry 09/14/2018 covers elements not covered in my initial note. SUBJECTIVE: I met with the patient evening of 09/14/2018. The patient slept 6-1/2 hours previous night. The patient was also staffed at treatment team meeting with the entire team in the morning and the patient's daughter Allison attended the treatment team meeting along with Maureen, nursing staff, from [facility] where the patient will be transitioning on 09/15/2018. He has been irritable at times, sleeping about 8 hours. Appetite is 50%. At times, he gets a little impulsive, loud, but redirects. REVIEW OF SYSTEMS: Ambulation impaired, in wheelchair. No CV, , pulmonary, eye, ENT system symptoms on review. Reliability poor. MENTAL STATUS EXAM: Oriented to himself. Insight, judgment, recent and remote memory, attention, concentration, fund of knowledge poor, consistent with his diagnosis mentioned in my initial note. PLAN: No change from initial note. Continue current psychotropics -- Luvox, Depakote, trazodone, Aricept, Remeron and Zyprexa as p.r.n. Valproic acid level, CBC, CMP to be checked 09/15/2018 prior to his discharge. MAN Shelbie POLO MD DR: CARL/efra JOB#: [id number] / [id number]
--- NOTE | 2018-09-18 07:58 | DS ---
DATE OF DISCHARGE: 09/15/2018 DISCHARGE SUMMARY/PSYCHIATRIC PROGRESS NOTE REASON FOR ADMISSION: Please refer to the admission history for details. Briefly, the patient is an 88-year-old male, referred back to us from [facility] Medical/Surgical floor after he has medically stabilized. He remained agitated, paranoid, confused with marked mood lability. SIGNIFICANT FINDINGS AND CLINICAL COURSE: Following admission, the patient was seen daily individually by myself from a psychiatric standpoint, medical followup with Dr. Mayo. The patient remained confused, was quite loud, abrasive, disruptive at times. Adjustments were made in his psychotropics. He seemed to respond to a combination of Depakote Sprinkle 500 mg b.i.d., valproic acid level was therapeutic, Aricept 10 mg a day, Remeron 15 mg at bedtime, Zyprexa p.r.n., Luvox was adjusted to 100 mg a day due to his obsessive thought processes, which worsened his irritability, and trazodone was used 12.5 mg t.i.d. p.r.n. Prior to discharge on 09/15/2018, ambulation impaired, in wheelchair. No CV, , pulmonary, eye, ENT system symptoms on review. MENTAL STATUS EXAM: Oriented to himself. Insight and judgment, recent and remote memory, attention, concentration, fund of knowledge poor, consistent with his diagnosis. FINAL DIAGNOSES: Major neurocognitive disorder; Alzheimer, vascular with delusion; depression; behavioral disturbance; anxiety disorder, unspecified; impulse control disorder, unspecified. Rest unchanged. PLAN: Continue current psychotropics per [facility]. [facility]. MAN Shelbie POLO MD DR: CARL/efra JOB#: [id number] / [id number]
--- NOTE | 2018-09-18 14:23 | HP ---
ADMIT DATE: 09/08/2018 PSYCHIATRIC ADMISSION HISTORY AND EVALUATION I had initially dictated this admission history and psychiatric evaluation on the patient on 09/08/2018, but the document cannot be found and perhaps has lost and I am re-dictating it. IDENTIFYING DATA: The patient is an 88-year-old male who [facility], being stabilized for his anxiety, depression and aggression within the context of his significant dementia. He was then transferred to the medical/surgical floor, [address] [place] [address] for UTI with ESBL. I had seen him there from a psychiatric standpoint. Despite resolution of the UTI, behaviors persisted. He was agitated, disruptive, difficult to manage and redirect and is referred back to us for inpatient psychiatric stabilization. CHIEF COMPLAINT: "I am okay." HISTORY OF PRESENT ILLNESS: The patient has a history of dementia, Alzheimer's vascular type. He had been at a facility and was unmanageable, [facility] and then developed UTI and was transferred as noted to [address] [place] [address] for this. He is now medically stable from this and returns to us. He has had some sleep and appetite changes. No clear history of bipolar disorder, suicidal or homicidal ideation. PAST PSYCHIATRIC HISTORY: As above. MEDICAL HISTORY: Positive for ESBL UTI, hypertension, hyperlipidemia, hypothyroidism, type 2 diabetes mellitus, glaucoma, abdominal aortic aneurysm, MRSA in nares. CODE STATUS: DNR. ALLERGIES: PENICILLIN. CURRENT PSYCHOTROPICS: Depakote Sprinkles 375 mg a.m. and 500 mg at bedtime, Aricept 10 mg a day, Remeron 15 mg at bedtime, Luvox 75 mg daily for OCD symptoms, trazodone 12.5 mg t.i.d. p.r.n., Zyprexa p.r.n. FAMILY HISTORY: Noncontributory. SOCIAL HISTORY: No history of alcohol, drug abuse, physical, sexual or elder abuse. MENTAL STATUS EXAMINATION: The patient was seen individually. He is oriented to himself in a wheelchair. Insight, judgment, recent and remote memory, attention, concentration, fund of knowledge poor, consistent with his diagnosis. IMPRESSION: Major neurocognitive disorder, Alzheimer, vascular with delusion, depression, behavioral disturbance, anxiety disorder unspecified, impulse control disorder unspecified, extended-spectrum beta-lactamase urinary tract infection. Rest diagnoses as above. PLAN: Admit to Geropsychiatry Unit at [facility]. I will see the patient daily individually from a psychiatric standpoint. Medical followup with Dr. Mayo. Continue the patient on his current psychotropics. Gradually increase the Luvox for the OCD symptoms. Adjust Depakote. Follow labs level, ammonia level to reach therapeutic level. Make further adjustments as clinically indicated. MAN Shelbie POLO MD DR: CARL/efra JOB#: [id number] / [id number]
== END 2018-09-15 10:15 | DRG 57 ==
LOC: GEROPSY 13:00
PROVIDERS: ADMIT Psychiatry & Neurology Psychiatry; ATTEND Psychiatry & Neurology Psychiatry
DX: G30.9 Alzheimer's disease, unspecified (principal); F01.51 Vascular dementia, unspecified severity, with behavioral disturbance; N39.0 Urinary tract infection, site not specified; F02.81 Dementia in other diseases classified elsewhere, unspecified severity, with behavioral disturbance; B96.20 Unspecified Escherichia coli [E. coli] as the cause of diseases classified elsewhere; E78.5 Hyperlipidemia, unspecified; F32.9 Major depressive disorder, single episode, unspecified; F41.9 Anxiety disorder, unspecified; E11.9 Type 2 diabetes mellitus without complications; F63.9 Impulse disorder, unspecified; Z16.24 Resistance to multiple antibiotics; Z88.0 Allergy status to penicillin; Z79.899 Other long term (current) drug therapy
CPT/HCPCS: 36415; 73502; 80053; 80164; 81001; 82140; 82947; 85007; 85025